=== PATIENT | female | born 1940 | race Caucasian/White ===

== ENCOUNTER 2016-08-29 20:32 | Emergency (ER) | payer MEDICARE ==
--- NOTE | 2016-08-29 20:40 | ER Document Report ---
ED Medical Screen (RME) - General Chief Complaint: Breathing Difficulty Stated Complaint: DIFFICULTY BREATHING WITH CONGESTION Notes: patient presents to the emergency department with complaints of chest congestion. She reports she feels like something is rambling when she coughs. Daughter also reports patient is extremely tired. Patient denies chest pain. She also denies fever vomiting diarrhea. TRAVEL OUTSIDE OF THE [place] IN LAST 30 DAYS: No - Related Data Allergies/Adverse Reactions: Penicillins Allergy (Severe, Verified 11/26/14 09:04) Anaphylaxis Past Medical History - Past Medical History Cardiac Medical History: Reports: Hx Coronary Artery Disease, Hx Hypercholesterolemia, Hx Hypertension Denies: Hx Atrial Fibrillation, Hx Congestive Heart Failure, Hx Heart Attack Pulmonary Medical History: Denies: Hx Asthma, Hx Bronchitis, Hx COPD, Hx Pneumonia Neurological Medical History: Reports: Hx Cerebrovascular Accident - stroke x 2. 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 Denies: Hx Mastectomy, Hx Open Heart Surgery, Hx Pacemaker - Immunizations Hx Diphtheria, Pertussis, Tetanus Vaccination: Yes
[2016-08-29 21:22] LABS: ABSOLUTE BASOPHILS # (AUTO) 0.1 10^3/uL (0.0-0.2); ABSOLUTE EOSINOPHILS # (AUTO) 0.3 10^3/uL (0.0-0.6); ABSOLUTE LYMPHOCYTES (AUTO) 1.2 10^3/uL (0.5-4.7); ABSOLUTE MONOCYTES (AUTO) 1.2 10^3/uL (0.1-1.4); ABSOLUTE NEUT (AUTO) 9.6 10^3/uL (1.7-8.2); BASOPHILS % (AUTO) 1.1 % (0-2); EOSINOPHILS % (AUTO) 2.2 % (0-6); HEMATOCRIT 39.1 % (36.0-47.0); HEMOGLOBIN 13.1 g/dL (12.0-15.5); HGB HCT DIFFERENCE 0.2; LYMPHOCYTES % (AUTO) 9.6 % (13-45); MEAN CORPUSCULAR HEMOGLOBIN 29.6 pg (27.0-33.4); MEAN CORPUSCULAR HGB CONC 33.4 g/dL (32.0-36.0); MEAN CORPUSCULAR VOLUME 89 fl (80-97); MONOCYTES % (AUTO) 9.9 % (3-13); RED BLOOD COUNT 4.41 10^6/uL (3.72-5.28); RED CELL DISTRIBUTION WIDTH 13.3 % (11.5-14.0); SEGMENTED NEUTROPHILS % (AUTO) 77.2 % (42-78); WHITE BLOOD COUNT 12.5 10^3/uL (4.0-10.5)
[2016-08-29 21:47] LABS: ALANINE AMINOTRANSFERASE 23 U/L (9-52); ALBUMIN 4.8 g/dL (3.5-5.0); ALKALINE PHOSPHATASE 94 U/L (38-126); ANION GAP 17 (5-19); ASPARTATE AMINO TRANSFERASE 22 U/L (14-36); BILIRUBIN,TOTAL 0.5 mg/dL (0.2-1.3); BLOOD UREA NITROGEN 20 mg/dL (7-20); CALCIUM 10.4 mg/dL (8.4-10.2); CARBON DIOXIDE 20 mmol/L (22-30); CHLORIDE 102 mmol/L (98-107); CREATININE RESULT 0.78 mg/dL (0.52-1.25); GLUCOSE 166 mg/dL (75-110); POTASSIUM 5.4 mmol/L (3.6-5.0); SODIUM 139.2 mmol/L (137-145); TOTAL PROTEIN 8.2 g/dL (6.3-8.2)
--- NOTE | 2016-08-29 23:48 | EKG REPORT ---
SEVERITY:- ABNORMAL ECG - SINUS OR ECTOPIC ATRIAL RHYTHM PROBABLE LVH WITH SECONDARY REPOL ABNRM : Confirmed by: Shannan Thornton 29-Aug-2016 23:47:08
[2016-08-30] MEDS ORDERED: AZITHROMYCIN 250 MG TABLET PO ONE (01:13)
[2016-08-30] MEDS ORDERED: ALBUTEROL SULFATE HFA (90 MCG/PUFF) 8 GM MDI (1 MDI/ER DISP) IH PRN (01:13)
--- NOTE | 2016-08-30 01:17 | ER Document Report ---
ED General - General Chief Complaint: Breathing Difficulty Stated Complaint: DIFFICULTY BREATHING WITH CONGESTION Notes: Patient is a 75-year-old female past medical history of dementia and hypertension who presents at the request of her daughter with concerns of increasing cough and fatigue over the last one week. The daughter notes that multiple people in the home have had a upper respiratory infection and some have been diagnosed with a "walking pneumonia" and she is concerned that her mother may have the same. States that the patient is been getting worse from a standpoint of her fatigue and willingness to eat over the last 2 days in particular. Patient has still not seen her primary care doctor since becoming ill approximately week ago. She does not have a history of similar symptoms in the past. The patient herself denies any complaints and when asked what brings her into the emergency room today she states "my daughter I don't want to be here". She denies any shortness of breath or pain. She notes that she only has a "little tickle" in her throat. They have been trying [id number] remedies with minimal improvement of the patient's symptoms. Nothing is noted to worsen the patient's symptoms. No associated vomiting or diarrhea. TRAVEL OUTSIDE OF THE [place] IN LAST 30 DAYS: No - Related Data Allergies/Adverse Reactions: Penicillins Allergy (Severe, Verified 11/26/14 09:04) Anaphylaxis Past Medical History - General Information source: Patient - Social History Smoking Status: Never Smoker Chew tobacco use (# tins/day): No Frequency of alcohol use: None Drug Abuse: None Lives with: Spouse/Significant other Family History: Reviewed & Not Pertinent Patient has suicidal ideation: No Patient has homicidal ideation: No - Past Medical History Cardiac Medical History: Reports: Hx Coronary Artery Disease, Hx Hypercholesterolemia, Hx Hypertension Denies: Hx Atrial Fibrillation, Hx Congestive Heart Failure, Hx Heart Attack Pulmonary Medical History: Denies: Hx Asthma, Hx Bronchitis, Hx COPD, Hx Pneumonia Neurological Medical History: Reports: Hx Cerebrovascular Accident - stroke x 2. 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 Denies: Hx Mastectomy, Hx Open Heart Surgery, Hx Pacemaker - Immunizations Hx Diphtheria, Pertussis, Tetanus Vaccination: Yes Review of Systems - Review of Systems Notes: Constitutional: Negative for fever. HENT: Negative for sore throat. Eyes: Negative for visual changes. Cardiovascular: Negative for chest pain. Respiratory: Negative for shortness of breath. Gastrointestinal: Negative for abdominal pain, vomiting or diarrhea. Genitourinary: Negative for dysuria. Musculoskeletal: Negative for back pain. Skin: Negative for rash. Neurological: Negative for headaches, weakness or numbness. 10 point ROS negative except as marked above and in HPI. Physical Exam - Vital signs Vitals: Pulse Resp BP Pulse Ox 81 16 146/68 H 95 08/29/16 20:38 08/29/16 20:38 08/29/16 20:38 08/29/16 20:38 Interpretation: Normal Notes: PHYSICAL EXAMINATION: GENERAL: Well-appearing, well-nourished and in no acute distress. HEAD: Atraumatic, normocephalic. EYES: Pupils equal round and reactive to light, extraocular movements intact, sclera anicteric, conjunctiva are normal. ENT: nares patent, oropharynx clear without exudates. Moist mucous membranes. NECK: Normal range of motion, supple without lymphadenopathy LUNGS: Breath sounds clear to auscultation bilaterally and equal. No wheezes rales or rhonchi. HEART: Regular rate and rhythm without murmurs ABDOMEN: Soft, nontender, normoactive bowel sounds. No guarding, no rebound. No masses appreciated. EXTREMITIES: Normal range of motion, no pitting or edema. No cyanosis. NEUROLOGICAL: No focal neurological deficits. Moves all extremities spontaneously and on command. PSYCH: Normal mood, normal affect. SKIN: Warm, Dry, normal turgor, no rashes or lesions noted. Course - Re-evaluation Re-evalutation: 08/30/16 01:14 Presentation is most consistent with a viral upper respiratory infection. Patient is overall well appearance, vitals within normal limits, well-hydrated. Patient denies any headache, neck pain, and has no evidence of meningismus on examination. Lungs are clear bilaterally. She does have a slight rattling to her upper airway. No evidence of respiratory distress. Based on clinical exam and history, I do not suspect an acute pneumonia, meningitis, strep pharyngitis , or an acute encephalitis. Chest x-ray clear as are laboratories which show only a mild leukocytosis. However, patient's history of getting worse rather than better over the last one week with multiple contacts who've been diagnosed as having a community-acquired pneumonia has prompted me to start patient empirically on azithromycin. She is also been given an albuterol inhaler to assist with persistent coughing. At this time will discharge with return precautions and follow-up recommendations. Verbal discharge instructions given a the bedside and opportunity for questions given. Medication warnings reviewed. Patient is in agreement with this plan and has verbalized understanding of return precautions and the need for primary care follow-up in the next 24-72 hours. - Vital Signs Vital signs: Temp Pulse Resp BP Pulse Ox 98.3 F 78 18 139/63 H 99 08/30/16 01:30 08/30/16 01:30 08/30/16 01:30 08/30/16 01:30 08/30/16 01:30 - Laboratory Result Diagrams: 08/29/16 21:13 08/29/16 21:13 Laboratory results interpreted by me: 08/29/16 08/29/16 21:13 21:13 WBC 12.5 H Lymphocytes % 9.6 L Absolute Neutrophils 9.6 H Potassium 5.4 H Carbon Dioxide 20 L Glucose 166 H Calcium 10.4 H - Diagnostic Test Radiology reviewed: Image reviewed, Reports reviewed Radiology results interpreted by me: 08/30/16 01:15 Chest x-ray: No acute infiltrate - EKG Interpretation by Me Additional EKG results interpreted by me: 08/30/16 03:46 Sinus rhythm. Rate 80. No ST elevations or depressions. QTC is 448 Discharge - Discharge Clinical Impression: Upper respiratory infection Qualifiers: URI type: unspecified URI Qualified Code(s): J06.9 - Acute upper respiratory infection, unspecified Condition: Good Disposition: HOME, SELF-CARE Additional Instructions: Please take the medications as prescribed. Return for worsening shortness of breath, passing out, persistent vomiting, chest pain, or any other symptoms that are worrisome to you. Please follow-up with her primary care doctor in the morning or at your earliest convenience. Prescriptions: Azithromycin 250 mg PO DAILY #4 tablet Referrals: MAGDA KAMARA MD [Primary Care Provider] - Follow up tomorrow
[2016-08-30 01:35] VITALS: BP 139/63
== END 2016-08-30 01:38 | disposition home or self-care (01) ==
LOC: ER 20:32
DX: J06.9 Acute upper respiratory infection, unspecified (principal); R53.83 Other fatigue; R05 Cough; R09.89 Other specified symptoms and signs involving the circulatory and respiratory systems; D72.829 Elevated white blood cell count, unspecified; E11.9 Type 2 diabetes mellitus without complications; I25.10 Atherosclerotic heart disease of native coronary artery without angina pectoris; I10 Essential (primary) hypertension; Z87.892 Personal history of anaphylaxis; Z88.0 Allergy status to penicillin; Z86.73 Personal history of transient ischemic attack (TIA), and cerebral infarction without residual deficits
CPT/HCPCS: 93005; 99285; 36415; 85025; 80053; 71020; 93010; A9270; J3490

== ENCOUNTER 2017-06-07 13:13 | Emergency (ER) | payer MEDICARE ==
--- NOTE | 2017-06-07 13:33 | ER Document Report ---
ED Medical Screen (RME) - General Chief Complaint: Fall Injury Stated Complaint: FALL/HEAD INJURY Time Seen by Provider: 06/07/17 13:32 Notes: Patient fell at home this before arrival. She struck her head on the corner of a desk. She states she is not lightheaded or dizzy she just lost her balance while brushing her hair. Family member states that she has been having more frequent falls lately. She is not on any known blood thinners. TRAVEL OUTSIDE OF THE [place] IN LAST 30 DAYS: No - Related Data Allergies/Adverse Reactions: Penicillins Allergy (Severe, Verified 06/07/17 13:14) Anaphylaxis Past Medical History - Social History Chew tobacco use (# tins/day): No Frequency of alcohol use: None Drug Abuse: None - Past Medical History Cardiac Medical History: Reports: Hx Coronary Artery Disease, Hx Hypercholesterolemia, Hx Hypertension Denies: Hx Atrial Fibrillation, Hx Congestive Heart Failure, Hx Heart Attack Pulmonary Medical History: Denies: Hx Asthma, Hx Bronchitis, Hx COPD, Hx Pneumonia Neurological Medical History: Reports: Hx Cerebrovascular Accident - stroke x 2. 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 Denies: Hx Mastectomy, Hx Open Heart Surgery, Hx Pacemaker - Immunizations Hx Diphtheria, Pertussis, Tetanus Vaccination: Yes Physical Exam - Vital signs Vitals: Temp Pulse Resp BP Pulse Ox 98.6 F 75 16 160/67 H 93 06/07/17 13:21 06/07/17 13:21 06/07/17 13:21 06/07/17 13:21 06/07/17 13:21 Course - Vital Signs Vital signs: Temp Pulse Resp BP Pulse Ox 98.6 F 75 16 160/67 H 93 06/07/17 13:21 06/07/17 13:21 06/07/17 13:21 06/07/17 13:21 06/07/17 13:21
--- NOTE | 2017-06-07 13:52 | RADIOLOGY REPORT (SQ) ---
EXAM DESCRIPTION: CT HEAD WITHOUT COMPLETED DATE/TIME: 06/07/2017 1:41 pm REASON FOR STUDY: fall/injury COMPARISON: 05/22/2014 TECHNIQUE: Axial images acquired through the brain without intravenous contrast. Images reviewed wi th bone, brain and subdural windows. Images stored on PACS. All CT scanners at this facility use dose modulation, iterative reconstruction, and/or weight based d osing when appropriate to reduce radiation dose to as low as reasonably achievable (ALARA). [facility]: Dose Right [facility]: CareDose [facility]: Dose Right [facility]: Teradose 4D [facility]: Smart [place]ink RADIATION DOSE: CT Rad equipment meets quality standard of care and radiation dose reduction techniq ues were employed. CTDIvol: 64.6 mGy. DLP: 1034 mGy-cm.mGy. LIMITATIONS: None. FINDINGS: VENTRICLES: Prominent. CEREBRUM: No masses. No hemorrhage. No midline shift. Areas of low density in the white matter mos t likely due to chronic micro-vascular ischemic change. No evidence for acute infarction. CEREBELLUM: No masses. No hemorrhage. No alteration of density. No evidence for acute infarction. EXTRAAXIAL SPACES: Age-related involutional change. No fluid collections. No masses. ORBITS AND GLOBE: No intra- or extraconal masses. Normal contour of globe without masses. CALVARIUM: No fracture. PARANASAL SINUSES: No fluid or mucosal thickening. SOFT TISSUES: No mass or hematoma. OTHER: No other significant finding. IMPRESSION: CHRONIC CHANGES OF ATROPHY AND MICROVASCULAR ISCHEMIA. NO ACUTE PROCESS. EVIDENCE OF ACUTE STROKE: NO. TECHNICAL DOCUMENTATION: JOB ID: [id number] Quality ID # [id number]: Final reports with documentation of one or more dose reduction techniques (e.g., Au tomated exposure control, adjustment of the mA and/or kV according to patient size, use of iterative reconstruction technique) 2010 [employer] All Rights Reserved
--- NOTE | 2017-06-07 14:38 | ER Document Report ---
ED Fall - General Chief Complaint: Fall Injury Stated Complaint: FALL/HEAD INJURY Time Seen by Provider: 06/07/17 13:32 Mode of Arrival: Wheelchair Information source: Patient Notes: 76-year-old female who lives with her daughter stumbled and lost her balance in her bedroom using the walker and fell. Her daughter found her on the floor unconscious without vomiting. No anticoagulants. Posterior occipital head laceration. PCP Dr. Kamara and tetanus is current. TRAVEL OUTSIDE OF THE [place] IN LAST 30 DAYS: No - Related data Allergies/Adverse Reactions: Penicillins Allergy (Severe, Verified 06/07/17 13:14) Anaphylaxis Past Medical History - General Information source: Patient, Relative - Daughter - Social History Smoking Status: Never Smoker Chew tobacco use (# tins/day): No Frequency of alcohol use: None Drug Abuse: None Lives with: Family Family History: Reviewed & Not Pertinent Patient has suicidal ideation: No Patient has homicidal ideation: No - Past Medical History Cardiac Medical History: Reports: Hx Coronary Artery Disease, Hx Hypercholesterolemia, Hx Hypertension Neurological Medical History: Reports: Hx Cerebrovascular Accident - stroke x 2 Endocrine Medical History: Reports: Hx Diabetes Mellitus Type 2 Renal/ Medical History: Denies: Hx Peritoneal Dialysis Musculoskeltal Medical History: 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 Psychiatric Medical History: Reports: Hx Depression Infectious Medical History: Denies: Hx Hepatitis Past Surgical History: Reports: Hx Cholecystectomy, Hx Hysterectomy - Immunizations Hx Diphtheria, Pertussis, Tetanus Vaccination: Yes Review of Systems - Review of Systems Constitutional: No symptoms reported EENT: No symptoms reported Cardiovascular: No symptoms reported Respiratory: No symptoms reported Gastrointestinal: No symptoms reported Genitourinary: No symptoms reported Female Genitourinary: No symptoms reported Musculoskeletal: See HPI Skin: No symptoms reported Hematologic/Lymphatic: No symptoms reported Neurological/Psychological: No symptoms reported Physical Exam - Vital signs Vitals: Temp Pulse Resp BP Pulse Ox 98.6 F 75 16 160/67 H 93 06/07/17 13:21 06/07/17 13:21 06/07/17 13:21 06/07/17 13:21 06/07/17 13:21 Interpretation: Hypertensive - mild - General General appearance: Appears well, Alert In distress: None - HEENT Head: Normocephalic, Atraumatic Eyes: Normal Pupils: PERRL Neck: Supple - non tender - Respiratory Respiratory status: No respiratory distress Chest status: Nontender Breath sounds: Normal Chest palpation: Normal - Cardiovascular Rhythm: Regular Heart sounds: Normal auscultation Murmur: No - Back Back: Normal, Nontender - Extremities General upper extremity: Normal inspection, Nontender, Normal color, Normal ROM , Normal temperature General lower extremity: Normal inspection, Nontender, Normal color, Normal ROM , Normal temperature, Normal weight bearing. No: Maral's sign Notes: no jayson tenderness - Neurological Neuro grossly intact: Yes Cognition: Normal Orientation: AAOx4 Billy Coma Scale Eye Opening: Spontaneous [place] Coma Scale Verbal: Oriented Billy Coma Scale Motor: Obeys Commands Billy Coma Scale Total: 15 Speech: Normal Motor strength normal: LUE, RUE, LLE, RLE Sensory: Normal - Psychological Associated symptoms: Normal affect, Normal mood - Skin Skin Temperature: Warm Skin Moisture: Dry Skin Color: Normal Skin irregularity: Laceration - posterior occiput, full thickness, 2 cm Course - Re-evaluation Re-evalutation: 06/07/17 14:38 ct head chronic atrophy, nothing acute - Vital Signs Vital signs: Temp Pulse Resp BP Pulse Ox 98.1 F 76 16 160/80 H 96 06/07/17 16:05 06/07/17 16:05 06/07/17 16:05 06/07/17 16:05 06/07/17 16:05 Procedures - Laceration/Wound Repair Head Time completed: 15:55 Wound length (cm): 1.5 Wound's Depth, Shape: Linear Laceration pre-procedure: Other - antibacterial soap scrub Anesthetic type: Other - LET Wound explored: Clean Irrigated w/ Saline (mLs): 50 Wound Repaired With: Rhonda - 2, bacitracin Layer Closure?: No Discharge - Discharge Clinical Impression: scalp laceration staple repair Head injury Qualifiers: Encounter type: initial encounter Qualified Code(s): S09.90XA - Unspecified injury of head, initial encounter Contusion Qualifiers: Encounter type: initial encounter Contusion area: head Contusion of head detail : scalp Qualified Code(s): S00.03XA - Contusion of scalp, initial encounter Condition: Good Disposition: HOME, SELF-CARE Instructions: Acetaminophen, Head Injury Precautions ([facility]), Care of Stapled Wounds ([facility]) Additional Instructions: bacitracin few days staple removal in 1 week to er any concerns watch her for falling, change in behavior , vomiting or any concerns return to the ER Referrals: MAGDA AKMARA MD [Primary Care Provider] - Follow up as needed
[2017-06-07] MEDS ORDERED: LIDOCAINE 4%/TETRACAINE 0.5%/EPI 0.18% 5 ML TOPICAL SOLN TOP ONE (15:03)
[2017-06-07 16:09] VITALS: BP 160/80
== END 2017-06-07 16:14 | disposition home or self-care (01) ==
LOC: ER 13:13
DX: S06.9X9A Unspecified intracranial injury with loss of consciousness of unspecified duration, initial encounter (principal); S01.01XA Laceration without foreign body of scalp, initial encounter; W18.39XA Other fall on same level, initial encounter; Y92.003 Bedroom of unspecified non-institutional (private) residence as the place of occurrence of the external cause; I25.10 Atherosclerotic heart disease of native coronary artery without angina pectoris; I10 Essential (primary) hypertension; E11.9 Type 2 diabetes mellitus without complications; Z87.892 Personal history of anaphylaxis; Z88.0 Allergy status to penicillin
CPT/HCPCS: 70450; 99284; J3490

== ENCOUNTER 2017-06-14 16:55 | Emergency (ER) | payer MEDICARE ==
[2017-06-14] MEDS ORDERED: TRAMADOL HCL 50 MG TABLET PO ONE (18:06)
--- NOTE | 2017-06-14 18:16 | ER Document Report ---
ED General - General Chief Complaint: Staple Removal Stated Complaint: STAPLE REMOVAL Time Seen by Provider: 06/14/17 17:18 Notes: Patient is a 76-year-old female who returns emergency department for staple removal that was placed on 06/07/2017 after frequent falls in her home over that week. Daughter at the bedside states that since her most recent fall she been complaining of back pain that is not responding well to Tylenol. Otherwise she denies any focal neurological deficits and is been ambulating for her baseline. She denies any recent fall since the . She denies any head injury since fall on the with loss of consciousness. Patient is not on blood thinners. Denies any fevers or chills or purulent drainage from the wound. TRAVEL OUTSIDE OF THE [place] IN LAST 30 DAYS: No - Related Data Allergies/Adverse Reactions: Penicillins Allergy (Severe, Verified 06/14/17 16:58) Anaphylaxis Past Medical History - Social History Smoking Status: Never Smoker Chew tobacco use (# tins/day): No Frequency of alcohol use: None Drug Abuse: None Family History: Reviewed & Not Pertinent Patient has suicidal ideation: No Patient has homicidal ideation: No - Past Medical History Cardiac Medical History: Reports: Hx Coronary Artery Disease, Hx Hypercholesterolemia, Hx Hypertension Denies: Hx Atrial Fibrillation, Hx Congestive Heart Failure, Hx Heart Attack Pulmonary Medical History: Denies: Hx Asthma, Hx Bronchitis, Hx COPD, Hx Pneumonia Neurological Medical History: Reports: Hx Cerebrovascular Accident - stroke x 2. 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 Denies: Hx Mastectomy, Hx Open Heart Surgery, Hx Pacemaker - Immunizations Hx Diphtheria, Pertussis, Tetanus Vaccination: Yes Review of Systems - Review of Systems Constitutional: No symptoms reported Cardiovascular: No symptoms reported Respiratory: No symptoms reported Gastrointestinal: No symptoms reported Musculoskeletal: See HPI Skin: See HPI Neurological/Psychological: See HPI -: Yes All other systems reviewed and negative Physical Exam - Vital signs Vitals: Temp Pulse Resp BP Pulse Ox 98.6 F 76 16 149/66 H 94 06/14/17 17:11 06/14/17 17:11 06/14/17 17:11 06/14/17 17:11 06/14/17 17:11 - Notes Notes: PHYSICAL EXAMINATION: GENERAL: Well-appearing, well-nourished and in no acute distress. GCS 15 HEAD: Atraumatic, normocephalic. EYES: Pupils equal round and reactive to light, extraocular movements intact, sclera anicteric, conjunctiva are normal. NECK: Normal range of motion, supple without lymphadenopathy. Trachea midline LUNGS: Breath sounds clear to auscultation bilaterally and equal. No wheezes rales or rhonchi. HEART: Regular rate and rhythm without murmurs. Pulses intact all throughout. Musculoskeletal: Normal range of motion, no pitting or edema. No cyanosis. Hip non tender, stable. Back: Mild tenderness palpation of the lumbar spine. Evidence of mild bruising on the left flank is nontender to palpation. NEUROLOGICAL: Cranial nerves grossly intact. Normal speech, normal gait. Normal sensory, motor exams. PSYCH: Normal mood, normal affect. SKIN: Warm, No active bleeding. 2 [place] on the posterior scalp with out evidence of purulent drainage, cellulitis or wound dehiscence Course - Re-evaluation Re-evalutation: 06/14/17 19:05 compression fracture L1 Patient is a 76-year-old female is hemodynamically stable, no acute distress and afebrile. [place] removed at the bedside and tolerated well. No evidence of wound infection or dehiscence. Guarding patient's back pain, evidence of a 30% lumbar for compression fracture of L1. Discussed results with daughter at the bedside as well as taking her home fall precautions and following up with primary care and insurance for other additional resources. Daughter agrees this plan and is stable for discharge to follow-up with Dr. Kamara. - Vital Signs Vital signs: Temp Pulse Resp BP Pulse Ox 98.6 F 72 16 143/77 H 96 06/14/17 17:11 06/14/17 19:10 06/14/17 19:10 06/14/17 19:10 06/14/17 19:10 - Diagnostic Test Radiology reviewed: Image reviewed, Reports reviewed Discharge - Discharge Clinical Impression: Repeated falls, Compression fracture Condition: Good Disposition: HOME, SELF-CARE Instructions: Compression Fracture of the Spine ([facility]), Staple Removal ([facility]) Prescriptions: Tramadol HCl [Ultram 50 mg Tablet] 50 mg PO Q4HP PRN #25 tab PRN Reason: Referrals: MAGDA KAMARA MD [Primary Care Provider] - 06/20/17
--- NOTE | 2017-06-14 18:50 | RADIOLOGY REPORT (SQ) ---
EXAM DESCRIPTION: L SPINE 2 VIEWS COMPLETED DATE/TIME: 06/14/2017 6:25 pm REASON FOR STUDY: low back pain, h/o multiple falls COMPARISON: 03/10/2016 NUMBER OF VIEWS: Three views. TECHNIQUE: AP, lateral, and inferior coned down lateral views of the lumbar spine. LIMITATIONS: None. FINDINGS: MINERALIZATION: Normal. SEGMENTATION: Normal. No transitional anatomy. ALIGNMENT: Normal. VERTEBRAE: 30% compression of the L1 vertebral body, new since the February 2016 exam, some features suggest subacute-chronic injury. No worrisome bone lesion. DISCS: Multilevel disc space narrowing with osteophytes. POSTERIOR ELEMENTS: Pedicles and facets are intact. No pars defect or posterior arch defects. Facet arthropathy is present. HARDWARE: None in the spine. PARASPINAL SOFT TISSUES: Heavy arterial calcifications without evidence for aneurysm. PELVIS: Intact as visualized. No fractures or worrisome bone lesions. SI joints intact. OTHER: No other significant finding. IMPRESSION: 30% compression of the L1 vertebral body, new since the February 2016 exam, some featur es suggest subacute-chronic injury. TECHNICAL DOCUMENTATION: JOB ID: [id number] [place]-72 2010 [employer]- All Rights Reserved
[2017-06-14 19:08] VITALS: BP 143/77
== END 2017-06-14 19:13 | disposition home or self-care (01) ==
LOC: ER 16:55
DX: M48.56XA Collapsed vertebra, not elsewhere classified, lumbar region, initial encounter for fracture (principal); Z48.02 Encounter for removal of sutures; W19.XXXA Unspecified fall, initial encounter; Z91.81 History of falling
CPT/HCPCS: 99283; 72100; A9270

== ENCOUNTER 2017-07-04 15:43 | Emergency (ER) | payer MEDICARE ==
--- NOTE | 2017-07-04 17:13 | ER Document Report ---
ED Medical Screen (RME) - General Chief Complaint: Vaginal Bleeding Stated Complaint: VAGINAL BLEEDING Time Seen by Provider: 07/04/17 17:10 Mode of Arrival: Wheelchair Information source: Patient Notes: 76 year-old female presented to ED for complaint of vaginal bleeding that started last night. She states she knows is coming from her "lady parts. Daughter states that she wears pull-ups and there was a lot of large clots in her pull-up this morning. Patient states there is no blood in her stool and her stools are very soft and brown. Patient denies any past history of vaginal bleeding or rectal bleeding but she does have some hemorrhoids according to the daughter. She states that the hemorrhoids are not red or bleeding. I have greeted and performed a rapid initial assessment of this patient. A comprehensive ED assessment and evaluation of the patient, analysis of test results and completion of medical decision making process will be conducted by an additional ED providers. TRAVEL OUTSIDE OF THE [place] IN LAST 30 DAYS: No - Related Data Allergies/Adverse Reactions: Penicillins Allergy (Severe, Verified 06/14/17 16:58) Anaphylaxis Past Medical History - Social History Chew tobacco use (# tins/day): No Drug Abuse: None - Past Medical History Cardiac Medical History: Reports: Hx Coronary Artery Disease, Hx Hypercholesterolemia, Hx Hypertension Denies: Hx Atrial Fibrillation, Hx Congestive Heart Failure, Hx Heart Attack Pulmonary Medical History: Denies: Hx Asthma, Hx Bronchitis, Hx COPD, Hx Pneumonia Neurological Medical History: Reports: Hx Cerebrovascular Accident - stroke x 2. 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 Denies: Hx Mastectomy, Hx Open Heart Surgery, Hx Pacemaker - Immunizations Hx Diphtheria, Pertussis, Tetanus Vaccination: Yes Physical Exam - Vital signs Vitals: Pulse Resp BP Pulse Ox 64 18 128/74 H 100 07/04/17 15:51 07/04/17 15:51 07/04/17 15:51 07/04/17 15:51 Course - Vital Signs Vital signs: Temp Pulse Resp BP Pulse Ox 66 14 128/74 H 99 07/04/17 15:53 07/04/17 15:53 07/04/17 15:53 07/04/17 15:53
[2017-07-04 18:21] LABS: ABSOLUTE BASOPHILS # (AUTO) 0.1 10^3/uL (0.0-0.2); ABSOLUTE EOSINOPHILS # (AUTO) 0.1 10^3/uL (0.0-0.6); ABSOLUTE LYMPHOCYTES (AUTO) 2.4 10^3/uL (0.5-4.7); ABSOLUTE NEUT (AUTO) 8.3 10^3/uL (1.7-8.2); BASOPHILS % (AUTO) 0.7 % (0-2); EOSINOPHILS % (AUTO) 0.9 % (0-6); HEMATOCRIT 40.6 % (36.0-47.0); HEMOGLOBIN 13.4 g/dL (12.0-15.5); LYMPHOCYTES % (AUTO) 20.1 % (13-45); MEAN CORPUSCULAR HEMOGLOBIN 29.4 pg (27.0-33.4); MEAN CORPUSCULAR HGB CONC 32.9 g/dL (32.0-36.0); MEAN CORPUSCULAR VOLUME 89 fl (80-97); MONOCYTES % (AUTO) 8.3 % (3-13); PLATELET COUNT 392 10^3/uL (150-450); RED BLOOD COUNT 4.54 10^6/uL (3.72-5.28); RED CELL DISTRIBUTION WIDTH 13.4 % (11.5-14.0); TOTAL CELLS COUNTED % (AUTO) 100 %; WHITE BLOOD COUNT 11.8 10^3/uL (4.0-10.5)
[2017-07-04 18:32] LABS: ALANINE AMINOTRANSFERASE 28 U/L (9-52); ALKALINE PHOSPHATASE 122 U/L (38-126); ANION GAP 18 (5-19); ASPARTATE AMINO TRANSFERASE 20 U/L (14-36); BILIRUBIN,DIRECT 0.3 mg/dL (0.0-0.4); BILIRUBIN,TOTAL 0.4 mg/dL (0.2-1.3); BLOOD UREA NITROGEN 29 mg/dL (7-20); CARBON DIOXIDE 22 mmol/L (22-30); CHLORIDE 103 mmol/L (98-107); GLUCOSE 173 mg/dL (75-110); POTASSIUM 3.9 mmol/L (3.6-5.0); TOTAL PROTEIN 8.1 g/dL (6.3-8.2)
[2017-07-04 18:57] LABS: APPEARANCE,URINE CLOUDY; BILIRUBIN,URINE NEGATIVE (NEGATIVE); COLOR,URINE AMBER; GLUCOSE, URINE NEGATIVE (NEGATIVE); KETONES,URINE NEGATIVE (NEGATIVE); LEUKOCYTE ESTERASE,URINE SMALL (NEGATIVE); NITRITE,URINE NEGATIVE (NEGATIVE); PROTEIN,URINE >=500 mg/dL (NEGATIVE); URINE SPECIFIC GRAVITY 1.024; UROBILINOGEN,URINE NEGATIVE mg/dL (<2.0)
[2017-07-04] MEDS ORDERED: CIPROFLOXACIN HCL 500 MG TABLET PO ONE (23:19)
--- NOTE | 2017-07-04 23:19 | ER Document Report ---
ED General - General Chief Complaint: Vaginal Bleeding Stated Complaint: VAGINAL BLEEDING Time Seen by Provider: 07/04/17 17:10 Mode of Arrival: Wheelchair Notes: Patient is a 76-year-old female presents with complaint of vaginal bleeding. No pain in the abdomen. No difficulty breathing. No dysuria. She notes she is passing some blood clots earlier today. The patient's daughter says that she has had 2 partial hysterectomies. She says this was many years ago. She denies any objective fevers but the daughter says that she felt that she may have had a fever before she came here. No vomiting. No diarrhea. No other complaints at this time. TRAVEL OUTSIDE OF THE [place] IN LAST 30 DAYS: No - Related Data Allergies/Adverse Reactions: Penicillins Allergy (Severe, Verified 06/14/17 16:58) Anaphylaxis Past Medical History - General Information source: Patient - Social History Smoking Status: Never Smoker Chew tobacco use (# tins/day): No Drug Abuse: None Family History: Reviewed & Not Pertinent Patient has suicidal ideation: No Patient has homicidal ideation: No - Past Medical History Cardiac Medical History: Reports: Hx Coronary Artery Disease, Hx Hypercholesterolemia, Hx Hypertension Denies: Hx Atrial Fibrillation, Hx Congestive Heart Failure, Hx Heart Attack Pulmonary Medical History: Denies: Hx Asthma, Hx Bronchitis, Hx COPD, Hx Pneumonia Neurological Medical History: Reports: Hx Cerebrovascular Accident - stroke x 2. 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 Denies: Hx Mastectomy, Hx Open Heart Surgery, Hx Pacemaker - Immunizations Hx Diphtheria, Pertussis, Tetanus Vaccination: Yes Review of Systems - Review of Systems Notes: My Normal Review Basic REVIEW OF SYSTEMS: CONSTITUTIONAL : Denies fever, chills, or sweats. Denies recent illness. RESPIRATORY: Denies cough, cold, or chest congestion. Denies shortness of breath, difficulty breathing, or wheezing. GASTROINTESTINAL: Denies abdominal pain. Denies nausea, vomiting, or diarrhea. Denies constipation. Last BM: GENITOURINARY: No dysuria. FEMALE GENITOURINARY: Vaginal bleeding MUSCULOSKELETAL: Denies neck or back pain or joint pain or swelling. SKIN: Denies rash or skin lesions. NEUROLOGICAL: Denies altered mental status or loss of consciousness. Denies headache. Denies weakness or paralysis or loss of use of either side. Denies problems with gait or speech. Denies sensory or motor loss. ALL OTHER SYSTEMS REVIEWED AND NEGATIVE. Physical Exam - Vital signs Vitals: Pulse Resp BP Pulse Ox 64 18 128/74 H 100 07/04/17 15:51 07/04/17 15:51 07/04/17 15:51 07/04/17 15:51 - Notes Notes: General Appearance: Well nourished, alert, cooperative, no acute distress, no obvious discomfort. well appearing Vitals: reviewed, See vital signs table. Eyes: PERRL, EOMI, Conjuctiva clear Lungs: No wheezing, No rales, No rhonci, No accessory muscle use, good air exchange bilaterally. Heart: Normal rate, Regular rythm, No murmur, no rub Abdomen: Normal BS, soft, No rigidity, No abdominal tenderness, No guarding, no rebound, no abdominal masses, no organomegaly Pelvic exam: normal external genitalia. Sound of blood in the vagianl vault. No cervix seen. No bleeding lesions seen. Extremities: strength 5/5 in all extremities, good pulses in all extremities, no swelling or tenderness in the extremities, no edema. Skin: warm, dry, appropriate color, no rash Neuro: speech clear, oriented x 3, normal affect, responds appropriately to questions. Course - Re-evaluation Re-evalutation: 07/05/17 00:51 Patient has what appears to be some vaginal bleeding. On pelvic exam the patient does not appear to have a cervix. I at least cannot see one. She did have some blood in vaginal vault but was a small amount. I suspect the reason why she has had a history of 2 hysterectomies is that she most likely had her uterus removed first time and then most likely went back and had her cervix removed the second time. Again I do not know this for factor based on her exam I suspect this is what happened. Her urine does have infection. I will place him on antibiotic. After left the room the daughter at told the nurse that the patient did not want to go home. I went back to speak with the daughter the patient is a patient overall looked well and had normal vital signs. Daughter says that the patient still that she felt too weak to go home. The patient then really said I I want to go home. Patient repeatedly said that she does not want to stay and wants to go home. I informed the daughter that I do not really have a admittable reason as her vital signs are normal her labs were normal and clinically she looks fine. I informed her that if the patient is truly that we can we can reconsider; however, the patient repeatedly says that she does not want stay and wants to go home. Informed her daughter to bring her back immediately if the patient has fevers, worsening weakness, appears unwell, or if she has any further concerns. I coursed talk to the daughter and the patient length about the importance of follow-up very closely with the sock mender for further workup of vaginal bleeding she had. Mother and daughter agree with plan and patient will be discharged home. Dictation of this chart was performed using voice recognition software; therefore, there may be some unintended grammatical errors. - Vital Signs Vital signs: Temp Pulse Resp BP Pulse Ox 97.9 F 71 20 137/72 H 97 07/05/17 00:11 07/05/17 00:11 07/05/17 00:11 07/05/17 00:11 07/05/17 00:11 - Laboratory Result Diagrams: 07/04/17 17:30 07/04/17 17:30 Laboratory results interpreted by me: 07/04/17 07/04/17 07/04/17 17:30 17:30 17:30 WBC 11.8 H Absolute Neutrophils 8.3 H BUN 29 H Est GFR ( Amer) 54 L Est GFR (Non-Af Amer) 44 L Glucose 173 H Calcium 11.0 H Urine Protein >=500 H Urine Blood LARGE H Ur Leukocyte Esterase SMALL H Discharge - Discharge Clinical Impression: Vaginal bleeding UTI (urinary tract infection) Qualifiers: Urinary tract infection type: site unspecified Hematuria presence: with hematuria Qualified Code(s): N39.0 - Urinary tract infection, site not specified Condition: Good Disposition: HOME, SELF-CARE Additional Instructions: On your pelvic exam you did have some blood in the vaginal vault. I did not see an obvious source of bleeding. Please call the Staff Reporter ( Dr. Ortiz) to make a close follow up appointment. Please inform them that you are 76 years old and were seen at the ER and have vaginal bleeding. You need to be reevaluated and potentially may need a biopsy as the most common cause of post menstrual vaginal bleeding is cancer. Your urinalysis also showed an infection. please take the antibiotics as prescribed. Please return to the ER immediately if you have worsening bleeding, difficulty breathing, light headedness, fevers, or feel unwell. Prescriptions: Ciprofloxacin HCl [Cipro 500 mg Tablet] 500 mg PO BID #14 tablet Referrals: MAGDA KAMARA MD [Primary Care Provider] - Follow up in 3-5 days ADOLFO ORTIZ MD [ACTIVE STAFF] - 07/06/17 (PLease call the office in the am to make a close follow up appointment)
[2017-07-05 00:12] VITALS: BP 137/72
== END 2017-07-05 00:25 | disposition home or self-care (01) ==
LOC: ER 15:43
DX: N93.9 Abnormal uterine and vaginal bleeding, unspecified (principal); N39.0 Urinary tract infection, site not specified; R31.9 Hematuria, unspecified; I10 Essential (primary) hypertension; I25.10 Atherosclerotic heart disease of native coronary artery without angina pectoris; E11.9 Type 2 diabetes mellitus without complications; Z90.711 Acquired absence of uterus with remaining cervical stump; Z87.892 Personal history of anaphylaxis; Z88.0 Allergy status to penicillin; Z95.0 Presence of cardiac pacemaker
CPT/HCPCS: 99284; 86900; 86901; 36415; 87086; 86850; 85025; 85730; 87088; 80053; 81001; 87186; A9270

== ENCOUNTER 2017-08-01 11:23 | Day surgery (SDC) | payer MEDICARE ==
[~2017-08-01 11:23] MED LIST: PROPOFOL INJ 200 MG/20 ML VIAL IV ONE
[2017-08-01] MEDS ORDERED: ONDANSETRON HCL INJ/PF 4 MG/2 ML SDV ONE (11:40)
[2017-08-01] MEDS ORDERED: DIPHENHYDRAMINE HCL 50 MG/ML VIAL ONE (11:40)
[2017-08-01] MEDS ORDERED: NALOXONE HCL INJ/PF 0.4 MG/1 ML SDV ONE (11:40)
[2017-08-01] MEDS ORDERED: FLUMAZENIL INJ 0.5 MG/5 ML VIAL ONE (11:41)
[2017-08-01] MEDS ORDERED: MIDAZOLAM 2 MG/2 ML INJ ONE (11:41)
[2017-08-01] MEDS ORDERED: FENTANYL CITRATE INJ/PF 100 MCG/2 ML AMPUL ONE (11:41)
[2017-08-01] MEDS ORDERED: EPINEPHRINE INJ 1 MG/10 ML DISP.SYRIN ONE (11:42)
[2017-08-01] MEDS ORDERED: GLUCAGON,HUMAN RECOMB 1 MG INJ ONE (11:42)
--- NOTE | 2017-08-01 13:11 | Operative Report ---
Operative Report DATE OF SURGERY: 08/01/17 Operative Report: The risks benefits and alternatives of the procedure explained to the patient in detail and informed consent is obtained.A GIF Olympus video scope was inserted into the patient's mouth and hypopharynx, the esophagus is identified intubated and insufflated, the scope was then advanced through the esophagus stomach and duodenum, retroflexion maneuver is done, the esophagus stomach and first and second portions of the duodenum examined PREOPERATIVE DIAGNOSIS: Epigastric discomfort. Peptic ulcer disease POSTOPERATIVE DIAGNOSIS: Gastritis status post biopsy rule out Helicobacter pylori. Esophagitis versus Friend's status post biopsy for confirmation. Hiatal hernia OPERATION: EGD with biopsy SURGEON: MELONY QUINONES ANESTHESIA: Moderate Sedation - 2 mg of Versed. Conscious sedation monitoring time 30 minutes. TISSUE REMOVED OR ALTERED: As noted above. COMPLICATIONS: None. ESTIMATED BLOOD LOSS: None. INTRAOPERATIVE FINDINGS: As noted above. PROCEDURE: Patient tolerated the procedure well. No immediate postprocedure complications are noted. Patient discharged in good condition. Discharge date 08/01/2017. Discharge diet: Regular. Discharge activity: Regular. 2-3 week follow-up to discuss findings. Patient is instructed call the office or proceed to the emergency room should there be any further problems or questions. We will wait on pathology.
[2017-08-01 13:16] VITALS: BP 141/79
== END 2017-08-01 13:30 | disposition home or self-care (01) ==
LOC: END 11:23
PROVIDERS: ATTEND Internal Medicine Gastroenterology
PROC: 0DB58ZX Excision of Esophagus, Via Natural or Artificial Opening Endoscopic, Diagnostic (ICD-10-PCS; 2017-08-01)
PROC: 0DB68ZX Excision of Stomach, Via Natural or Artificial Opening Endoscopic, Diagnostic (ICD-10-PCS; principal; 2017-08-01 14:30)
DX: K20.9 Esophagitis, unspecified (principal); K29.60 Other gastritis without bleeding; K44.9 Diaphragmatic hernia without obstruction or gangrene
CPT/HCPCS: 43239; 82962; 88342 ×2; 88305 ×2; J2250; J0171; J1200; J1610; J2310; J2405; J2704; J3010; J3490

== ENCOUNTER 2017-09-13 19:10 | Inpatient (IN) | payer MEDICARE ==
--- NOTE | 2017-09-13 19:50 | ER Document Report ---
ED Medical Screen (RME) - General Chief Complaint: Altered Mental Status Stated Complaint: ALTERED MENTAL STATUS Time Seen by Provider: 09/13/17 19:44 Notes: RME DISCLOSURE I have seen this patient as part of a Rapid Medical Evaluation and, if applicable, placed any initially appropriate orders. The patient will be seen and fully evaluated, including a full history and physical exam, by a provider ( in Main ED or Fast Track) when a room becomes available. 76-year-old female brought here by family who states that she has complained of weakness all over and is slower acting within normal. She has not eaten anything in 3 days and is having trouble walking. She is not having any confusion. They are unsure what is going on with her. They deny any other complaints. The patient denies any pain. TRAVEL OUTSIDE OF THE [place] IN LAST 30 DAYS: No - Related Data Allergies/Adverse Reactions: Penicillins Allergy (Severe, Verified 09/13/17 19:13) Anaphylaxis Past Medical History - Past Medical History Cardiac Medical History: Reports: Hx Coronary Artery Disease, Hx Hypercholesterolemia, Hx Hypertension Denies: Hx Atrial Fibrillation, Hx Congestive Heart Failure, Hx Heart Attack Pulmonary Medical History: Denies: Hx Asthma, Hx Bronchitis, Hx COPD, Hx Pneumonia Neurological Medical History: Reports: Hx Cerebrovascular Accident - stroke x 2. 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 Denies: Hx Mastectomy, Hx Open Heart Surgery, Hx Pacemaker - Immunizations Hx Diphtheria, Pertussis, Tetanus Vaccination: Yes Physical Exam - Vital signs Vitals: Pulse Resp BP Pulse Ox 76 16 119/82 96 09/13/17 19:37 09/13/17 19:37 09/13/17 19:37 09/13/17 19:37 Course - Vital Signs Vital signs: Temp Pulse Resp BP Pulse Ox 76 16 119/82 96 09/13/17 19:37 09/13/17 19:37 09/13/17 19:37 09/13/17 19:37
--- NOTE | 2017-09-13 20:19 | RADIOLOGY REPORT (SQ) ---
EXAM DESCRIPTION: CHEST PA/LAT COMPLETED DATE/TIME: 09/13/2017 8:10 pm REASON FOR STUDY: eval pneumonia COMPARISON: Chest x-ray dated 08/29/2016. KUB dated 03/10/2016. EXAM PARAMETERS: NUMBER OF VIEWS: two views TECHNIQUE: Digital Frontal and Lateral radiographic views of the chest acquired. RADIATION DOSE: NA LIMITATIONS: none FINDINGS: LUNGS AND PLEURA: No opacities, masses or pneumothorax. No pleural effusion. MEDIASTINUM AND HILAR STRUCTURES: No masses or contour abnormalities. HEART AND VASCULAR STRUCTURES: Heart normal size. No evidence for failure. BONES: No acute findings. HARDWARE: None in the chest. OTHER: Dilated gas-filled colon, not fully imaged. Similar findings on prior chest x-ray (August 2016 ) and abdominal x-ray (February 2016). IMPRESSION: NO SIGNIFICANT RADIOGRAPHIC FINDING IN THE CHEST. TECHNICAL DOCUMENTATION: JOB ID: [id number] [employer]- All Rights Reserved Reading location - IP/workstation name: [email or web address]
--- NOTE | 2017-09-13 20:36 | RADIOLOGY REPORT (SQ) ---
EXAM DESCRIPTION: CT HEAD WITHOUT COMPLETED DATE/TIME: 09/13/2017 8:20 pm REASON FOR STUDY: AMS COMPARISON: 06/07/2017. TECHNIQUE: Axial images acquired through the brain without intravenous contrast. Images reviewed wi th bone, brain and subdural windows. Images stored on PACS. All CT scanners at this facility use dose modulation, iterative reconstruction, and/or weight based d osing when appropriate to reduce radiation dose to as low as reasonably achievable (ALARA). [facility]: Dose Right [facility]: CareDose [facility]: Dose Right [facility]: Teradose 4D [facility]: Smart frenting RADIATION DOSE: CT Rad equipment meets quality standard of care and radiation dose reduction techniq ues were employed. CTDIvol: 64.6 mGy. DLP: 1034 mGy-cm.mGy. LIMITATIONS: None. FINDINGS: VENTRICLES: Prominent. CEREBRUM: No masses. No hemorrhage. No midline shift. Areas of low density in the white matter mos t likely due to chronic micro-vascular ischemic change. No evidence for acute infarction. CEREBELLUM: No masses. No hemorrhage. No alteration of density. No evidence for acute infarction. EXTRAAXIAL SPACES: Age-related involutional change. No fluid collections. No masses. ORBITS AND GLOBE: No intra- or extraconal masses. Normal contour of globe without masses. CALVARIUM: No fracture. PARANASAL SINUSES: No fluid or mucosal thickening. SOFT TISSUES: No mass or hematoma. OTHER: No other significant finding. IMPRESSION: CHRONIC CHANGES OF ATROPHY AND MICROVASCULAR ISCHEMIA. NO ACUTE PROCESS. EVIDENCE OF ACUTE STROKE: NO. TECHNICAL DOCUMENTATION: JOB ID: [id number] Quality ID # [id number]: Final reports with documentation of one or more dose reduction techniques (e.g., Au tomated exposure control, adjustment of the mA and/or kV according to patient size, use of iterative reconstruction technique) 2010 [employer]- All Rights Reserved Reading location - IP/workstation name: [email or web address]
[2017-09-13 20:53] LABS: ABSOLUTE BASOPHILS # (AUTO) 0.1 10^3/uL (0.0-0.2); ABSOLUTE LYMPHOCYTES (AUTO) 3.3 10^3/uL (0.5-4.7); ABSOLUTE NEUT (AUTO) 10.4 10^3/uL (1.7-8.2); EOSINOPHILS % (AUTO) 0.2 % (0-6); HEMATOCRIT 46.8 % (36.0-47.0); HEMOGLOBIN 15.7 g/dL (12.0-15.5); LYMPHOCYTES % (AUTO) 22.5 % (13-45); MEAN CORPUSCULAR HEMOGLOBIN 29.1 pg (27.0-33.4); MEAN CORPUSCULAR HGB CONC 33.5 g/dL (32.0-36.0); MEAN CORPUSCULAR VOLUME 87 fl (80-97); MONOCYTES % (AUTO) 6.5 % (3-13); PLATELET COUNT 528 10^3/uL (150-450); RED BLOOD COUNT 5.38 10^6/uL (3.72-5.28); RED CELL DISTRIBUTION WIDTH 14.1 % (11.5-14.0); SEGMENTED NEUTROPHILS % (AUTO) 69.8 % (42-78); TOTAL CELLS COUNTED % (AUTO) 100 %; WHITE BLOOD COUNT 14.8 10^3/uL (4.0-10.5)
[2017-09-13 21:05] LABS: ALANINE AMINOTRANSFERASE 33 U/L (9-52); ALBUMIN 5.1 g/dL (3.5-5.0); ALKALINE PHOSPHATASE 87 U/L (38-126); ASPARTATE AMINO TRANSFERASE 34 U/L (14-36); BILIRUBIN,DIRECT 0.5 mg/dL (0.0-0.4); BILIRUBIN,TOTAL 0.7 mg/dL (0.2-1.3); BLOOD UREA NITROGEN 40 mg/dL (7-20); CALCIUM 11.4 mg/dL (8.4-10.2); GLUCOSE 190 mg/dL (75-110); POTASSIUM 3.6 mmol/L (3.6-5.0); TOTAL PROTEIN 8.7 g/dL (6.3-8.2)
[2017-09-13 21:10] LABS: CARBON DIOXIDE 18 mmol/L (22-30); CHLORIDE 107 mmol/L (98-107); SODIUM 147.5 mmol/L (137-145)
[2017-09-13 21:11] LABS: ANION GAP 23 (5-19)
[2017-09-13] MEDS ORDERED: NORMAL SALINE 1000 ML 500 ML IV ONE (21:34)
--- NOTE | 2017-09-13 21:34 | ER Document Report ---
ED General - General Chief Complaint: Altered Mental Status Stated Complaint: ALTERED MENTAL STATUS Time Seen by Provider: 09/13/17 19:44 Notes: Patient is a 76-year-old female comes emergency department for chief complaint of weakness and confusion, she lives at home with her family, daughters at bedside, daughter states that for the past 3 days she has barely eat or drink anything, she is now to want to even take 2 steps, normally she walks around with a walker without difficulty. No fever, cough, vomiting, patient denies any pain complaints or any other complaints other than feeling weak. Past medical history of CVA 2, has some speech impediment but no other deficits, other past medical history includes type 2 diabetes, hypertension, hypothyroidism, hyperlipidemia, cholecystectomy, hysterectomy. Daughter states she did take her Synthroid. TRAVEL OUTSIDE OF THE [place] IN LAST 30 DAYS: No - Related Data Allergies/Adverse Reactions: Penicillins Allergy (Severe, Verified 09/13/17 19:13) Anaphylaxis Past Medical History - General Information source: Patient, Relative - Social History Smoking Status: Never Smoker Chew tobacco use (# tins/day): No Frequency of alcohol use: None Drug Abuse: None Lives with: Family Family History: Reviewed & Not Pertinent Patient has suicidal ideation: No Patient has homicidal ideation: No - Past Medical History Cardiac Medical History: Reports: Hx Coronary Artery Disease, Hx Hypercholesterolemia, Hx Hypertension Denies: Hx Atrial Fibrillation, Hx Congestive Heart Failure, Hx Heart Attack Pulmonary Medical History: Denies: Hx Asthma, Hx Bronchitis, Hx COPD, Hx Pneumonia Neurological Medical History: Reports: Hx Cerebrovascular Accident - stroke x 2. 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 Denies: Hx Mastectomy, Hx Open Heart Surgery, Hx Pacemaker - Immunizations Hx Diphtheria, Pertussis, Tetanus Vaccination: Yes Review of Systems - Review of Systems Constitutional: See HPI EENT: No symptoms reported Cardiovascular: See HPI Respiratory: No symptoms reported Gastrointestinal: No symptoms reported Genitourinary: No symptoms reported Female Genitourinary: No symptoms reported Musculoskeletal: No symptoms reported Skin: No symptoms reported Hematologic/Lymphatic: No symptoms reported Neurological/Psychological: See HPI Physical Exam - Vital signs Vitals: Pulse Resp BP Pulse Ox 76 16 119/82 96 09/13/17 19:37 09/13/17 19:37 09/13/17 19:37 09/13/17 19:37 - General General appearance: Appears well In distress: None - HEENT Head: Normocephalic, Atraumatic Eyes: Normal Pupils: PERRL - Respiratory Respiratory status: No respiratory distress Breath sounds: Normal. No: Decreased air movement, Wheezing - Cardiovascular Rhythm: Irregularly irregular. No: Tachycardia Heart sounds: Normal auscultation, S1 appreciated, S2 appreciated Gallop: None auscultated Normal capillary refill: Yes - Abdominal Inspection: Normal Tenderness: Nontender. No: Tender, Guarding - Back Back: Normal, Nontender. No: Tender - Extremities General upper extremity: Normal inspection, Nontender, Normal strength, Normal temperature General lower extremity: Normal inspection, Nontender, Normal strength, Normal temperature. No: Edema - Neurological Neuro grossly intact: Yes Orientation: Disoriented to time, Disoriented to events. 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 Abdomen soft, lungs clear, patient speaks quietly and lays quietly on the bed but is not in any distress. Vital signs unremarkable. 09/13/17 21:35 EKG shows atrial fibrillation at a rate of 89, ST depressions in V2 and V3 which are new compared to prior, no other changes noted. Patient is on aspirin. She is denying having any chest pain or shortness of breath, no nausea , she has not had diaphoresis. EKG will be repeated, initial troponin is 0.067 , no comparison available. Will cycle. Troponin is downtrending. Patient has mild leukocytosis, nonspecific, no pneumonia, no overt urinary tract infection, urine cultured. Chemistry consistent with dehydration with elevated BUN and low bicarbonate. Patient was given some initial IV fluids. Patient is very weak, family reports she is unable to walk without a large amount of assistance and she is unstable because of her weakness. Because of her dehydration, weakness, and new onset atrial fibrillation discussed with family and patient and will discuss for hospital admission. Discussed with Dr. Todd. Recommends adding Lovenox anticoagulation and admission. Patient has been given aspirin already. Discussed with Dr. Aviles, patient's provider, patient will be admitted to telemetry full admission. Family and patient state agreement with this plan. - Vital Signs Vital signs: Temp Pulse Resp BP Pulse Ox 97.5 F 125 H 18 124/76 96 09/14/17 01:15 09/14/17 01:22 09/14/17 01:15 09/14/17 01:15 09/14/17 01:15 - Laboratory Result Diagrams: 09/14/17 04:29 09/14/17 04:29 Laboratory results interpreted by me: 09/13/17 09/13/17 09/13/17 20:30 20:30 20:30 WBC 14.8 H RBC 5.38 H Hgb 15.7 H RDW 14.1 H Plt Count 528 H Absolute Neutrophils 10.4 H Sodium 147.5 H Carbon Dioxide 18 L Anion Gap 23 H BUN 40 H Est GFR ( Amer) 54 L Est GFR (Non-Af Amer) 44 L Glucose 190 H Calcium 11.4 H Direct Bilirubin 0.5 H Ammonia < 8.7 L Total Protein 8.7 H Albumin 5.1 H Urine Protein Urine Ketones Urine Urobilinogen Ur Leukocyte Esterase 09/13/17 21:40 WBC RBC Hgb RDW Plt Count Absolute Neutrophils Sodium Carbon Dioxide Anion Gap BUN Est GFR ( Amer) Est GFR (Non-Af Amer) Glucose Calcium Direct Bilirubin Ammonia Total Protein Albumin Urine Protein >=500 H Urine Ketones TRACE H Urine Urobilinogen 2.0 H Ur Leukocyte Esterase TRACE H Discharge - Discharge Clinical Impression: Weakness, Dehydration, New onset atrial fibrillation Condition: Stable Disposition: ADMITTED INPATIENT Admitting Provider: Stefan Unit Admitted: Telemetry
[2017-09-13 22:20] LABS: APPEARANCE,URINE CLOUDY; BILIRUBIN,URINE NEGATIVE (NEGATIVE); GLUCOSE, URINE NEGATIVE (NEGATIVE); KETONES,URINE TRACE mg/dL (NEGATIVE); LEUKOCYTE ESTERASE,URINE TRACE (NEGATIVE); NITRITE,URINE NEGATIVE (NEGATIVE); PROTEIN,URINE >=500 mg/dL (NEGATIVE); URINE SPECIFIC GRAVITY 1.025
[2017-09-13 22:21] LABS: COLOR,URINE DARK YELLOW
[2017-09-13] MEDS ORDERED: ASPIRIN 81 MG TABLET, CHEWABLE PO ONE (23:08)
[2017-09-13] MEDS ORDERED: ENOXAPARIN SODIUM INJ 80 MG/0.8 ML DISP.SYRIN SUBCUT ONE (23:12)
[2017-09-13] MEDS ORDERED: ENOXAPARIN SODIUM INJ 60 MG/0.6 ML DISP.SYRIN SUBCUT ONE (23:45)
[2017-09-14] MEDS: NORMAL SALINE 1000 ML 1,000 ML IV PRN ×3 (01:14→22:38)
[2017-09-14] MEDS ORDERED: DEXTROSE 40% GEL 15 GM TUBE PO PRN (02:24)
[2017-09-14] MEDS ORDERED: DEXTROSE 50%-WATER SYRINGE 25 GM/50 ML DOSE IV PRN (02:24)
[2017-09-14] MEDS ORDERED: DEXTROSE 50%-WATER SYRINGE 12.5 GM/25 ML DOSE IV PRN (02:24)
[2017-09-14] MEDS ORDERED: GLUCAGON,HUMAN RECOMB 1 MG INJ IM PRN (02:24)
[2017-09-14] MEDS ORDERED: DEXTROSE 40% GEL 15 GM TUBE X 2 PO PRN (02:24)
[2017-09-14 05:08] LABS: ABSOLUTE BASOPHILS # (AUTO) 0.2 10^3/uL (0.0-0.2); ABSOLUTE EOSINOPHILS # (AUTO) 0.1 10^3/uL (0.0-0.6); ABSOLUTE LYMPHOCYTES (AUTO) 4.4 10^3/uL (0.5-4.7); ABSOLUTE MONOCYTES (AUTO) 1.6 10^3/uL (0.1-1.4); ABSOLUTE NEUT (AUTO) 9.9 10^3/uL (1.7-8.2); EOSINOPHILS % (AUTO) 0.4 % (0-6); HEMATOCRIT 38.7 % (36.0-47.0); LYMPHOCYTES % (AUTO) 27.2 % (13-45); MEAN CORPUSCULAR HEMOGLOBIN 28.6 pg (27.0-33.4); MEAN CORPUSCULAR HGB CONC 33.4 g/dL (32.0-36.0); MEAN CORPUSCULAR VOLUME 85 fl (80-97); MONOCYTES % (AUTO) 9.8 % (3-13); PLATELET COUNT 374 10^3/uL (150-450); RED BLOOD COUNT 4.53 10^6/uL (3.72-5.28); SEGMENTED NEUTROPHILS % (AUTO) 61.6 % (42-78); TOTAL CELLS COUNTED % (AUTO) 100 %; WHITE BLOOD COUNT 16.1 10^3/uL (4.0-10.5)
[2017-09-14 05:09] LABS: HEMOGLOBIN 12.9 g/dL (12.0-15.5)
[2017-09-14 05:28] LABS: ALANINE AMINOTRANSFERASE 29 U/L (9-52); ALBUMIN 4.1 g/dL (3.5-5.0); ALKALINE PHOSPHATASE 67 U/L (38-126); ANION GAP 16 (5-19); ASPARTATE AMINO TRANSFERASE 33 U/L (14-36); BILIRUBIN,DIRECT 0.5 mg/dL (0.0-0.4); BILIRUBIN,TOTAL 0.5 mg/dL (0.2-1.3); BLOOD UREA NITROGEN 40 mg/dL (7-20); CARBON DIOXIDE 17 mmol/L (22-30); CHLORIDE 108 mmol/L (98-107); GLUCOSE 115 mg/dL (75-110); POTASSIUM 3.2 mmol/L (3.6-5.0); SODIUM 140.6 mmol/L (137-145); TOTAL PROTEIN 6.8 g/dL (6.3-8.2)
--- NOTE | 2017-09-14 07:55 | EKG REPORT ---
SEVERITY:- ABNORMAL ECG - SINUS RHYTHM WITH PACS LEFT ANTERIOR FASCICULAR BLOCK LVH WITH SECONDARY REPOLARIZATION ABNORMALITY PROLONGED QT INTERVAL : Confirmed by: Michael Grier MD 14-Sep-2017 07:54:10
--- NOTE | 2017-09-14 07:55 | EKG REPORT ---
SEVERITY:- ABNORMAL ECG - ATRIAL FIBRILLATION LEFT AXIS DEVIATION LVH WITH SECONDARY REPOLARIZATION ABNORMALITY ST DEPRESSION, CONSIDER ISCHEMIA, ANT-LAT LDS BORDERLINE PROLONGED QT INTERVAL : Confirmed by: Michael Grier MD 14-Sep-2017 07:55:17
[2017-09-14] MEDS ORDERED: (PENDING PHARMACY ID) (Metformin Hcl [Metformin Hcl Er] 1,000 MG) PO SCH (09:00)
[2017-09-14] MEDS ORDERED: LEVOTHYROXINE SODIUM 0.112 MG TABLET PO ONE (10:00)
[2017-09-14] MEDS ORDERED: CHOLECALCIFEROL (D3) 1,000 UNIT TABLET PO SCH (10:00)
[2017-09-14] MEDS ORDERED: (PENDING PHARMACY ID) (Cholecalciferol (Vitamin D3) [Vitamin D3] 2,000 UNIT) PO SCH (10:00)
[2017-09-14] MEDS ORDERED: ENOXAPARIN SODIUM INJ 60 MG/0.6 ML DISP.SYRIN SUBCUT SCH (10:00)
[2017-09-14] MEDS ORDERED: (PENDING PHARMACY ID) (Losartan Potassium [Losartan Potassium] 100 MG) PO SCH (10:00)
[2017-09-14] MEDS ORDERED: (PENDING PHARMACY ID) (Atenolol [Tenormin 100 Mg Tablet] 100 MG) PO SCH (10:00)
[2017-09-14] MEDS: APIXABAN 2.5 MG TABLET PO SCH ×2 (10:31→22:27)
[2017-09-14] MEDS: AMLODIPINE BESYLATE 5 MG TABLET PO SCH (10:31)
[2017-09-14] MEDS: LOSARTAN POTASSIUM 50 MG TABLET PO SCH (10:32)
[2017-09-14] MEDS: ATENOLOL 50 MG TABLET PO SCH (10:32)
[2017-09-14] MEDS: CHOLECALCIFEROL (D3) 1,000 UNIT TABLET PO SCH (10:32)
[2017-09-14] MEDS: MULTIVITAMIN TABLET PO SCH (10:33)
[2017-09-14] MEDS: SERTRALINE HCL 50 MG TABLET PO SCH (10:33)
[2017-09-14] MEDS: METFORMIN HCL 500 MG TABLET PO SCH ×2 (10:34→15:59)
[2017-09-14] MEDS: INSULIN LISPRO 100 UNIT/ML 3 ML VIAL SUBCUT PRN (17:44)
--- NOTE | 2017-09-14 18:09 | PDOC H&P ---
History of Present Illness Admission Date/PCP: 09/13/17 23:17 Patient complains of: Worsening weakness and confusion History of Present Illness: TRA DESAI is a 76 year old female known to my practice who was brought to the ED by daughter due to worsening generalized weakness over preceding 3 days. Daughter reported associated poor appetite and oral intake over the last several days. Daughter denied any associated fever, chills, nausea, vomiting, diarrhea or constipation. No reported difficulty with breathing or chest pain. daughter reported increasing need for ADL and IADL. In the ED her initial evaluation was significant for dehydration, possible sepsis with focus of UTI and findings suggestive of new onset atrial fibrillation. Her morbidities include Hypertension, Hypothyroidism, Diabetes Mellitus type 2, Hyperlipidemia, prior history of CVA and Osteoarthritis. Daughter reported compliance with home prescribed medications prior to her current state of health. Past Medical History Cardiac Medical History: Reports: Coronary Artery Disease, Hyperlipidema, Hypertension Denies: Atrial Fibrillation, Congestive Heart Failure, Myocardial Infarction Pulmonary Medical History: Denies: Asthma, Bronchitis, Chronic Obstructive Pulmonary Disease (COPD), Pneumonia Neurological Medical History: Denies: Seizures Endocrine Medical History: Reports: Diabetes Mellitus Type 2 GI Medical History: Denies: Hepatitis, Hiatal Hernia Musculoskeltal Medical History: Reports: Arthritis - geralized Psychiatric Medical History: Reports: Depression Hematology: Denies: Anemia, Sickle Cell Disease Past Surgical History Past Surgical History: Reports: Cholecystectomy, Hysterectomy Denies: Amputation, Mastectomy, Pacemaker Social History Lives with: Family Smoking Status: Never Smoker Frequency of Alcohol Use: None Hx Recreational Drug Use: No Drugs: None Hx Prescription Drug Abuse: No - Advance Directive Resuscitation Status: Do Not Intubate Family History Family History: Reviewed & Not Pertinent Parental Family History Reviewed: Yes Children Family History Reviewed: Yes Sibling(s) Family History Reviewed.: Yes Medication/Allergy Home Medications: Amlodipine Besylate [Norvasc 5 mg Tablet] 5 mg PO DAILY 09/14/17 Aspirin [Adult Low Dose Aspirin EC] 81 mg PO DAILY 09/14/17 Atenolol [Tenormin 100 mg Tablet] 100 mg PO DAILY 09/14/17 Atorvastatin Calcium [Lipitor 20 mg Tablet] 20 mg PO QHS 09/14/17 Cholecalciferol (Vitamin D3) [Vitamin D3 1000 Unit Tablet] 1,000 unit PO DAILY 09/14/17 Diphenhydramine HCl [Benadryl 25 mg Capsule] 2 tab PO HSP PRN 09/14/17 Levothyroxine Sodium [Synthroid 0.112 mg Tablet] 112 mcg PO Q6AM 09/14/17 Losartan Potassium 100 mg PO DAILY 09/14/17 Magnesium Oxide [Mag-Ox 400 mg Tablet] 400 mg PO DAILY 09/14/17 Metformin HCl [Metformin HCl ER] 1,000 mg PO BIDBS 09/14/17 Multivitamin [Daily Multiple Vitamin] 1 each PO DAILY 09/14/17 Potassium Chloride 10 meq PO DAILY 09/14/17 Sertraline HCl 100 mg PO DAILY 09/14/17 Allergies/Adverse Reactions: Penicillins Allergy (Severe, Verified 09/13/17 19:13) Anaphylaxis Review of Systems All systems: reviewed and no additional remarkable complaints except as stated - mostly contributed by daughter due to her weakness and confusional state. Physical Exam Vital Signs: Temp Pulse Resp BP Pulse Ox 97.5 F 88 20 130/75 H 96 09/14/17 16:31 09/14/17 16:31 09/14/17 16:31 09/14/17 16:31 09/14/17 16:31 Intake & Output 09/13/17 09/14/17 09/15/17 06:59 06:59 06:59 Intake Total 850 150 Balance 850 150 General appearance: PRESENT: cooperative Head exam: PRESENT: atraumatic, normocephalic Eye exam: PRESENT: conjunctiva pink, EOMI, PERRLA. ABSENT: scleral icterus Mouth exam: PRESENT: moist - fairly at the time of my evaluetion after IV fluid hydration and some oral toileting intervention. Neck exam: ABSENT: carotid bruit, JVD, lymphadenopathy, thyromegaly Respiratory exam: PRESENT: clear to auscultation skyler, decreased breath sounds - at lung bases Cardiovascular exam: PRESENT: irregular rhythm, +S1, +S2. ABSENT: diastolic murmur, systolic murmur Pulses: PRESENT: +1 pedal pulses bilateral Vascular exam: PRESENT: normal capillary refill. ABSENT: pallor GI/Abdominal exam: PRESENT: normal bowel sounds, soft. ABSENT: distended, guarding, mass, organolmegaly, rebound, tenderness Rectal exam: PRESENT: deferred Extremities exam: ABSENT: pedal edema Musculoskeletal exam: PRESENT: deformity - related to multiple joints involvement with arthritis Neurological exam: PRESENT: altered - due to generalized weakness, awake Psychiatric exam: PRESENT: appropriate affect, normal mood. ABSENT: homicidal ideation, suicidal ideation Skin exam: PRESENT: dry, warm Results Laboratory Results: 09/14/17 04:29 09/14/17 04:29 09/14/17 09/14/17 04:29 04:29 WBC 16.1 H RBC 4.53 Hgb 12.9 D Hct 38.7 MCV 85 MCH 28.6 MCHC 33.4 RDW 14.0 Plt Count 374 Seg Neutrophils % 61.6 Lymphocytes % 27.2 Monocytes % 9.8 Eosinophils % 0.4 Basophils % 1.0 Absolute Neutrophils 9.9 H Absolute Lymphocytes 4.4 Absolute Monocytes 1.6 H Absolute Eosinophils 0.1 Absolute Basophils 0.2 Sodium 140.6 Potassium 3.2 L Chloride 108 H Carbon Dioxide 17 L Anion Gap 16 BUN 40 H Creatinine 1.01 Est GFR ( Amer) > 60 Est GFR (Non-Af Amer) 53 L Glucose 115 H Calcium 10.0 Total Bilirubin 0.5 AST 33 ALT 29 Alkaline Phosphatase 67 Total Protein 6.8 Albumin 4.1 Impressions: Chest X-Ray 09/13/17 19:48 IMPRESSION: NO SIGNIFICANT RADIOGRAPHIC FINDING IN THE CHEST. Head CT 09/13/17 19:48 IMPRESSION: CHRONIC CHANGES OF ATROPHY AND MICROVASCULAR ISCHEMIA. NO ACUTE PROCESS. EVIDENCE OF ACUTE STROKE: NO. Assessment & Plan - Diagnosis (1) New onset atrial fibrillation Is this a current diagnosis for this admission?: Yes Plan: See admitting attending physician orders. (2) Dehydration Is this a current diagnosis for this admission?: Yes Plan: See admitting attending physician orders. (3) Probable sepsis Is this a current diagnosis for this admission?: Yes Plan: See admitting attending physician orders. (4) Physical debility Is this a current diagnosis for this admission?: Yes Plan: See admitting attending physician orders. (5) HTN (hypertension) Qualifiers: Hypertension type: essential hypertension Qualified Code(s): I10 - Essential (primary) hypertension Is this a current diagnosis for this admission?: Yes Plan: See admitting attending physician orders. (6) Diabetes mellitus type 2 in nonobese Is this a current diagnosis for this admission?: Yes Plan: See admitting attending physician orders. (7) Hyperlipidemia associated with type 2 diabetes mellitus Is this a current diagnosis for this admission?: Yes Plan: See admitting attending physician orders. (8) Hypothyroidism Qualifiers: Hypothyroidism type: acquired Qualified Code(s): E03.9 - Hypothyroidism, unspecified Is this a current diagnosis for this admission?: Yes Plan: See admitting attending physician orders. (9) History of CVA (cerebrovascular accident) Is this a current diagnosis for this admission?: Yes Plan: See admitting attending physician orders. (10) Osteoarthritis involving multiple joints on both sides of body Is this a current diagnosis for this admission?: Yes Plan: See admitting attending physician orders. - Time Time Spent: 50 to 70 Minutes Medications reviewed and adjusted accordingly: Yes Anticipated discharge: SNF Within: Other - Inpatient Certification Based on my medical assessment, after consideration of the patient's comorbidities, presenting symptoms, or acuity I expect that the services needed warrant INPATIENT care.: Yes I certify that my determination is in accordance with my understanding of Medicare's requirements for reasonable and necessary INPATIENT services [42 CFR 412.3e].: Yes Medical Necessity: Need Close Monitoring Due to Risk of Patient Decompensation, Need For IV Fluids, Need For Continuous Telemetry Monitoring, Need for IV Antibiotics, Risk of Complication if Not Cared For in Hospital Post Hospital Care: D/C or Transfer Summary - Plan Summary Plan Summary: See admitting attending physician orders.
[2017-09-14] MEDS: POTASSIUM CHLORIDE 20 MEQ/15 ML UDCUP PO SCH ×2 (18:47→22:26)
[2017-09-14] MEDS ORDERED: METFORMIN HCL 500 MG TABLET PO ONE (19:00)
[2017-09-14] MEDS: MAGNESIUM SULFATE/D5W 1 GM/100 ML RTUPB IV SCH ×2 (20:32→22:25)
[2017-09-14] MEDS: ATORVASTATIN CALCIUM 20 MG TABLET PO SCH (22:28)
[2017-09-15 05:14] LABS: ABSOLUTE BASOPHILS # (AUTO) 0.1 10^3/uL (0.0-0.2); ABSOLUTE EOSINOPHILS # (AUTO) 0.2 10^3/uL (0.0-0.6); ABSOLUTE LYMPHOCYTES (AUTO) 3.1 10^3/uL (0.5-4.7); ABSOLUTE MONOCYTES (AUTO) 1.1 10^3/uL (0.1-1.4); ABSOLUTE NEUT (AUTO) 8.5 10^3/uL (1.7-8.2); BASOPHILS % (AUTO) 0.5 % (0-2); EOSINOPHILS % (AUTO) 1.4 % (0-6); HEMATOCRIT 33.9 % (36.0-47.0); HEMOGLOBIN 11.5 g/dL (12.0-15.5); LYMPHOCYTES % (AUTO) 23.9 % (13-45); MEAN CORPUSCULAR HEMOGLOBIN 28.9 pg (27.0-33.4); MEAN CORPUSCULAR HGB CONC 33.8 g/dL (32.0-36.0); MEAN CORPUSCULAR VOLUME 86 fl (80-97); MONOCYTES % (AUTO) 8.8 % (3-13); PLATELET COUNT 301 10^3/uL (150-450); RED BLOOD COUNT 3.96 10^6/uL (3.72-5.28); SEGMENTED NEUTROPHILS % (AUTO) 65.4 % (42-78); TOTAL CELLS COUNTED % (AUTO) 100 %
[2017-09-15] MEDS: LEVOTHYROXINE SODIUM 0.112 MG TABLET PO SCH (05:43)
[2017-09-15 05:47] LABS: ALANINE AMINOTRANSFERASE 40 U/L (9-52); ALBUMIN 3.4 g/dL (3.5-5.0); ALKALINE PHOSPHATASE 63 U/L (38-126); ANION GAP 13 (5-19); ASPARTATE AMINO TRANSFERASE 51 U/L (14-36); BILIRUBIN,DIRECT 0.3 mg/dL (0.0-0.4); BILIRUBIN,TOTAL 0.4 mg/dL (0.2-1.3); BLOOD UREA NITROGEN 30 mg/dL (7-20); CALCIUM 8.9 mg/dL (8.4-10.2); CARBON DIOXIDE 15 mmol/L (22-30); CHLORIDE 115 mmol/L (98-107); GLUCOSE 103 mg/dL (75-110); POTASSIUM 3.7 mmol/L (3.6-5.0); SODIUM 142.6 mmol/L (137-145); TOTAL PROTEIN 5.9 g/dL (6.3-8.2)
[2017-09-15] MEDS: METFORMIN HCL 500 MG TABLET PO SCH ×2 (08:16→17:18)
[2017-09-15] MEDS: ATENOLOL 50 MG TABLET PO SCH (11:07)
[2017-09-15] MEDS: SERTRALINE HCL 50 MG TABLET PO SCH (11:07)
[2017-09-15] MEDS: AMLODIPINE BESYLATE 5 MG TABLET PO SCH (11:07)
[2017-09-15] MEDS: LOSARTAN POTASSIUM 50 MG TABLET PO SCH (11:07)
[2017-09-15] MEDS: LEVOFLOXACIN 500 MG/D5W RTU 500 MG/100 ML RTUPB IV SCH (11:08)
[2017-09-15] MEDS: APIXABAN 2.5 MG TABLET PO SCH ×2 (11:08→21:37)
[2017-09-15] MEDS: CHOLECALCIFEROL (D3) 1,000 UNIT TABLET PO SCH (11:08)
[2017-09-15] MEDS: MULTIVITAMIN TABLET PO SCH (11:08)
[2017-09-15] MEDS: NORMAL SALINE 1000 ML 1,000 ML IV PRN (13:39)
[2017-09-15] MEDS: INSULIN LISPRO 100 UNIT/ML 3 ML VIAL SUBCUT PRN (13:40)
--- NOTE | 2017-09-15 18:26 | PDOC PROGRESS REPORT ---
Subjective Progress Note for:: 09/15/17 Subjective:: Patient participated in physical therapy session today. No chest pain or difficulty with breathing. No nausea, vomiting or abdominal pain but there is increase abdominal distention. No fever or chills. Tolerating oral feeding. Reason For Visit: NEW ONSET AFIB Physical Exam Vital Signs: Temp Pulse Resp BP Pulse Ox 98.6 F 40 L 16 149/75 H 97 09/15/17 15:43 09/15/17 15:43 09/15/17 15:43 09/15/17 15:43 09/15/17 15:43 Intake & Output 09/14/17 09/15/17 09/16/17 06:59 06:59 06:59 Intake Total 850 3326 1415 Balance 850 3326 1415 General appearance: PRESENT: no acute distress, well-developed, well-nourished Head exam: PRESENT: atraumatic, normocephalic Eye exam: PRESENT: conjunctiva pink, EOMI, PERRLA. ABSENT: scleral icterus Mouth exam: PRESENT: moist Respiratory exam: PRESENT: clear to auscultation skyler, decreased breath sounds - at lung bases Cardiovascular exam: PRESENT: RRR. ABSENT: diastolic murmur, rubs, systolic murmur Vascular exam: PRESENT: normal capillary refill. ABSENT: pallor GI/Abdominal exam: PRESENT: distended, normal bowel sounds. ABSENT: organolmegaly, tenderness Extremities exam: ABSENT: pedal edema Musculoskeletal exam: PRESENT: deformity - related to multiple joints involvement with arthritis Neurological exam: PRESENT: alert, awake, oriented to person, oriented to place , oriented to time, oriented to situation, CN II-XII grossly intact. ABSENT: motor sensory deficit Psychiatric exam: PRESENT: appropriate affect, normal mood. ABSENT: homicidal ideation, suicidal ideation Skin exam: PRESENT: dry, intact, warm. ABSENT: cyanosis, rash Results Laboratory Results: 09/15/17 04:26 09/15/17 04:26 09/14/17 09/15/17 09/15/17 04:29 04:26 04:26 WBC 13.0 H RBC 3.96 Hgb 11.5 L Hct 33.9 L MCV 86 MCH 28.9 MCHC 33.8 RDW 14.0 Plt Count 301 Seg Neutrophils % 65.4 Lymphocytes % 23.9 Monocytes % 8.8 Eosinophils % 1.4 Basophils % 0.5 Absolute Neutrophils 8.5 H Absolute Lymphocytes 3.1 Absolute Monocytes 1.1 Absolute Eosinophils 0.2 Absolute Basophils 0.1 Sodium 142.6 Potassium 3.7 Chloride 115 H Carbon Dioxide 15 L Anion Gap 13 BUN 30 H Creatinine 0.76 Est GFR ( Amer) > 60 Est GFR (Non-Af Amer) > 60 Glucose 103 Calcium 8.9 Magnesium 1.2 L* 1.8 Total Bilirubin 0.4 AST 51 H ALT 40 Alkaline Phosphatase 63 Total Protein 5.9 L Albumin 3.4 L Impressions: Chest X-Ray 09/13/17 19:48 IMPRESSION: NO SIGNIFICANT RADIOGRAPHIC FINDING IN THE CHEST. Head CT 09/13/17 19:48 IMPRESSION: CHRONIC CHANGES OF ATROPHY AND MICROVASCULAR ISCHEMIA. NO ACUTE PROCESS. EVIDENCE OF ACUTE STROKE: NO. Assessment & Plan - Diagnosis (1) New onset atrial fibrillation Is this a current diagnosis for this admission?: Yes (2) Dehydration Is this a current diagnosis for this admission?: Yes (3) Probable sepsis Is this a current diagnosis for this admission?: Yes (4) Physical debility Is this a current diagnosis for this admission?: Yes (5) HTN (hypertension) Qualifiers: Hypertension type: essential hypertension Qualified Code(s): I10 - Essential (primary) hypertension Is this a current diagnosis for this admission?: Yes (6) Diabetes mellitus type 2 in nonobese Is this a current diagnosis for this admission?: Yes (7) Hyperlipidemia associated with type 2 diabetes mellitus Is this a current diagnosis for this admission?: Yes (8) Hypothyroidism Qualifiers: Hypothyroidism type: acquired Qualified Code(s): E03.9 - Hypothyroidism, unspecified Is this a current diagnosis for this admission?: Yes (9) History of CVA (cerebrovascular accident) Is this a current diagnosis for this admission?: Yes (10) Osteoarthritis involving multiple joints on both sides of body Is this a current diagnosis for this admission?: Yes (11) Enterococcus UTI Is this a current diagnosis for this admission?: Yes Plan: See attending physician orders. - Time Time Spent with patient: 25-34 minutes Medications reviewed and adjusted accordingly: Yes Anticipated discharge: SNF Within: Other - Inpatient Certification Based on my medical assessment, after consideration of the patient's comorbidities, presenting symptoms, or acuity I expect that the services needed warrant INPATIENT care.: Yes I certify that my determination is in accordance with my understanding of Medicare's requirements for reasonable and necessary INPATIENT services [42 CFR 412.3e].: Yes Medical Necessity: Need Close Monitoring Due to Risk of Patient Decompensation, Need For IV Fluids, Need For Continuous Telemetry Monitoring, Need for IV Antibiotics, Risk of Complication if Not Cared For in Hospital Post Hospital Care: D/C or Transfer Summary - Plan Summary Plan Summary: See attending physician orders.
--- NOTE | 2017-09-15 18:57 | Physician Advisory Note ---
Physician Advisor ProgressNote .: [facility] I have [facility] medical record for this patient. Physician Advisor Statement: Please consider documenting, if you agree: 1. "sepsis, considered but ruled out" - vs - "sepsis, present on admission, due to ____[UTI?], & evidenced by (if sepsis (+), please document the specific criteria by which the dx was made, & continue to document this through to the DCSummary, & list any organ dysfunction caused by sepsis, ...) 2. "Acute hypernatremia due to , now resolved" [intravascular volume depletion?] 3. "Acute metabolic acidosis due to " Discussion: Sepsis-2 criteria = 2 or more of following, must include 1 of 1st 2: T>100.4, WBC>12, HR>90, RR>20. Sepsis-3 criteria = acute increase of 2+ SOFA points: total GCS<15, MAP <70, P/ F ratio <400, plts <150, Cr 1.2+, total bili 1.2+. Lactate elevation can support dx of sepsis, but can also be caused by other causes of tissue hypoxia/respiratory failure, mesenteric ischemia, seizure, and certain meds, among other things. *Sepsis is important to document when present, but has become over-called at times & is a target for denials. - When making this dx, we need to give the specific supporting evidence. - When pt meets some sepsis criteria but clinically not felt to be septic, we should say that sepsis was considered but ruled out. Thanks! CK
[2017-09-15] MEDS: ATORVASTATIN CALCIUM 20 MG TABLET PO SCH (21:37)
--- NOTE | 2017-09-15 23:57 | RADIOLOGY REPORT (SQ) ---
EXAM DESCRIPTION: ACUTE ABDOMEN SERIES CLINICAL HISTORY: 76 years, Female, Abdominal distention with leukocytosis COMPARISON: 03/10/2016. CR chest, 09/13/2017. TECHNIQUE: Four images. LIMITATIONS: None. FINDINGS: Moderate lung volume, small left basilar atelectasis-scar, atherosclerosis, normal cardiac silhouette. Chronic/recurrent large bowel dilation measures up to 10.0 cm diameter with similar appearance on prior exam, 03/10/2016. No evidence of free air. IMPRESSION: Chronic/recurrent colonic ileus pattern. Differential diagnosis includes obstruction.
[2017-09-16] MEDS: NORMAL SALINE 1000 ML 1,000 ML IV PRN ×3 (04:58→20:45)
[2017-09-16] MEDS: LEVOTHYROXINE SODIUM 0.112 MG TABLET PO SCH (05:00)
[2017-09-16] MEDS: AMLODIPINE BESYLATE 5 MG TABLET PO SCH (09:45)
[2017-09-16] MEDS: MULTIVITAMIN TABLET PO SCH (09:46)
[2017-09-16] MEDS: SERTRALINE HCL 50 MG TABLET PO SCH (09:46)
[2017-09-16] MEDS: LOSARTAN POTASSIUM 50 MG TABLET PO SCH (09:46)
[2017-09-16] MEDS: CHOLECALCIFEROL (D3) 1,000 UNIT TABLET PO SCH (09:46)
[2017-09-16] MEDS: METFORMIN HCL 500 MG TABLET PO SCH ×2 (09:47→18:52)
[2017-09-16] MEDS: APIXABAN 2.5 MG TABLET PO SCH ×2 (09:47→21:38)
[2017-09-16] MEDS: ATENOLOL 50 MG TABLET PO SCH (09:48)
[2017-09-16] MEDS: LEVOFLOXACIN 500 MG/D5W RTU 500 MG/100 ML RTUPB IV SCH (09:50)
[2017-09-16] MEDS ORDERED: ONDANSETRON HCL INJ/PF 4 MG/2 ML SDV IV PRN (13:22)
[2017-09-16] MEDS ORDERED: SIMETHICONE 80 MG TAB.CHEW PO SCH (16:00)
--- NOTE | 2017-09-16 16:17 | PDOC PROGRESS REPORT ---
Subjective Progress Note for:: 09/16/17 Subjective:: Patient had episodes of vomiting earlier today that current subsided following administration of IV Zofran. P.O intake remain poor so far today as per nursing staff and daughter at bedside. No chest pain or difficulty with breathing. No abdominal pain but persistent increase abdominal distention. No fever or chills. Reason For Visit: NEW ONSET AFIB; DEHYDRATION, PROBABLE SEPSIS Physical Exam Vital Signs: Temp Pulse Resp BP Pulse Ox 97.2 F 65 18 136/75 H 95 09/16/17 12:06 09/16/17 12:06 09/16/17 12:06 09/16/17 12:06 09/16/17 12:06 Intake & Output 09/15/17 09/16/17 09/17/17 06:59 06:59 06:59 Intake Total 3326 3015 200 Balance 3326 3015 200 Physical Exam: General appearance: PRESENT: no acute distress, well-developed, well-nourished Head exam: PRESENT: atraumatic, normocephalic Eye exam: PRESENT: conjunctiva pink, EOMI, PERRLA. ABSENT: scleral icterus Mouth exam: PRESENT: moist Respiratory exam: PRESENT: clear to auscultation skyler, decreased breath sounds - at lung bases Cardiovascular exam: PRESENT: RRR. ABSENT: diastolic murmur, rubs, systolic murmur GI/Abdominal exam: PRESENT: distended, soft, normal bowel sounds. ABSENT: organomegaly, tenderness Extremities exam: ABSENT: pedal edema Musculoskeletal exam: PRESENT: deformity - related to multiple joints involvement with arthritis Neurological exam: PRESENT: alert, awake, oriented to person, oriented to place , oriented to time, oriented to situation, CN II-XII grossly intact. ABSENT: motor sensory deficit Psychiatric exam: PRESENT: appropriate affect, normal mood. ABSENT: homicidal ideation, suicidal ideation Skin exam: PRESENT: dry, intact, warm. ABSENT: cyanosis, rash. Results Laboratory Results: 09/15/17 04:26 09/15/17 04:26 Impressions: Chest X-Ray 09/13/17 19:48 IMPRESSION: NO SIGNIFICANT RADIOGRAPHIC FINDING IN THE CHEST. Head CT 09/13/17 19:48 IMPRESSION: CHRONIC CHANGES OF ATROPHY AND MICROVASCULAR ISCHEMIA. NO ACUTE PROCESS. EVIDENCE OF ACUTE STROKE: NO. Acute Abdomen Series 09/15/17 00:00 IMPRESSION: Chronic/recurrent colonic ileus pattern. Differential diagnosis includes obstruction. Assessment & Plan - Diagnosis (1) New onset atrial fibrillation Is this a current diagnosis for this admission?: Yes (2) Dehydration Is this a current diagnosis for this admission?: Yes Plan: Her hypernatremia and metabolic acidosis are reflection of ongoing dehydration from lack of fluid intake and infectious process respectively. (3) Probable sepsis Is this a current diagnosis for this admission?: Yes Plan: Considered due to presentation with confusion, leukocytosis and abnormal urinalysis. Urine culture did grew Enterococcus Faecalis. (4) Physical debility Is this a current diagnosis for this admission?: Yes (5) HTN (hypertension) Qualifiers: Hypertension type: essential hypertension Qualified Code(s): I10 - Essential (primary) hypertension Is this a current diagnosis for this admission?: Yes (6) Diabetes mellitus type 2 in nonobese Is this a current diagnosis for this admission?: Yes (7) Hyperlipidemia associated with type 2 diabetes mellitus Is this a current diagnosis for this admission?: Yes (8) Hypothyroidism Qualifiers: Hypothyroidism type: acquired Qualified Code(s): E03.9 - Hypothyroidism, unspecified Is this a current diagnosis for this admission?: Yes (9) History of CVA (cerebrovascular accident) Is this a current diagnosis for this admission?: Yes (10) Osteoarthritis involving multiple joints on both sides of body Is this a current diagnosis for this admission?: Yes (11) Enterococcus UTI Is this a current diagnosis for this admission?: Yes (12) Paralytic ileus of large intestine Is this a current diagnosis for this admission?: Yes Plan: May be a consequence of ongoing infection, hypokalemia and low magnesium level. See attending physician orders for details. - Time Time Spent with patient: 25-34 minutes Medications reviewed and adjusted accordingly: Yes Anticipated discharge: SNF Within: Other - Inpatient Certification Based on my medical assessment, after consideration of the patient's comorbidities, presenting symptoms, or acuity I expect that the services needed warrant INPATIENT care.: Yes I certify that my determination is in accordance with my understanding of Medicare's requirements for reasonable and necessary INPATIENT services [42 CFR 412.3e].: Yes Medical Necessity: Need Close Monitoring Due to Risk of Patient Decompensation, Need For IV Fluids, Need For Continuous Telemetry Monitoring, Need for IV Antibiotics, Risk of Complication if Not Cared For in Hospital Post Hospital Care: D/C or Transfer Summary - Plan Summary Plan Summary: Continue IV Levoquin coverage. Start on Dulcolax 10 mg IA and Simethicone on 120 mg p.o pchs for distention management. Obtain CBC with diff, BMP, and Mag levels in am.
[2017-09-16] MEDS ORDERED: BISACODYL 10 MG SUPP.RECT PR ONE (17:00)
[2017-09-16] MEDS: SIMETHICONE 80 MG TAB.CHEW PO SCH ×2 (18:53→21:37)
[2017-09-16] MEDS: DIPHENHYDRAMINE HCL 25 MG CAPSULE PO PRN (21:37)
[2017-09-16] MEDS: ATORVASTATIN CALCIUM 20 MG TABLET PO SCH (21:38)
[2017-09-17 05:07] LABS: ABSOLUTE BASOPHILS # (AUTO) 0.1 10^3/uL (0.0-0.2); ABSOLUTE EOSINOPHILS # (AUTO) 0.2 10^3/uL (0.0-0.6); ABSOLUTE LYMPHOCYTES (AUTO) 2.5 10^3/uL (0.5-4.7); ABSOLUTE MONOCYTES (AUTO) 0.9 10^3/uL (0.1-1.4); ABSOLUTE NEUT (AUTO) 6.2 10^3/uL (1.7-8.2); BASOPHILS % (AUTO) 0.5 % (0-2); EOSINOPHILS % (AUTO) 1.6 % (0-6); HEMATOCRIT 30.5 % (36.0-47.0); HEMOGLOBIN 10.5 g/dL (12.0-15.5); LYMPHOCYTES % (AUTO) 25.5 % (13-45); MEAN CORPUSCULAR HEMOGLOBIN 29.5 pg (27.0-33.4); MEAN CORPUSCULAR HGB CONC 34.4 g/dL (32.0-36.0); MEAN CORPUSCULAR VOLUME 86 fl (80-97); MONOCYTES % (AUTO) 9.4 % (3-13); PLATELET COUNT 203 10^3/uL (150-450); RED BLOOD COUNT 3.56 10^6/uL (3.72-5.28); RED CELL DISTRIBUTION WIDTH 13.8 % (11.5-14.0); TOTAL CELLS COUNTED % (AUTO) 100 %; WHITE BLOOD COUNT 9.9 10^3/uL (4.0-10.5)
[2017-09-17 05:36] LABS: ANION GAP 10 (5-19); BLOOD UREA NITROGEN 13 mg/dL (7-20); CALCIUM 7.9 mg/dL (8.4-10.2); CARBON DIOXIDE 20 mmol/L (22-30); CHLORIDE 112 mmol/L (98-107); GLUCOSE 88 mg/dL (75-110); SODIUM 141.5 mmol/L (137-145)
[2017-09-17 05:46] LABS: POTASSIUM 2.7 mmol/L (3.6-5.0)
[2017-09-17] MEDS ORDERED: MAGNESIUM SULFATE/D5W 1 GM/100 ML RTUPB IV ONE (06:05)
[2017-09-17] MEDS: LEVOTHYROXINE SODIUM 0.112 MG TABLET PO SCH (06:06)
[2017-09-17] MEDS: POTASSIUM CHLORIDE 10 MEQ TABLET.SA PO SCH ×3 (06:10→15:14)
[2017-09-17] MEDS: MAGNESIUM SULFATE 1 GM/D5W 100 ML IV SCH ×2 (06:10→07:12)
[2017-09-17] MEDS: NORMAL SALINE 1000 ML 1,000 ML IV PRN (06:15)
[2017-09-17] MEDS: SIMETHICONE 80 MG TAB.CHEW PO SCH ×4 (10:07→21:46)
[2017-09-17] MEDS: METFORMIN HCL 500 MG TABLET PO SCH ×2 (10:07→15:15)
[2017-09-17] MEDS: AMLODIPINE BESYLATE 5 MG TABLET PO SCH (10:09)
[2017-09-17] MEDS: LOSARTAN POTASSIUM 50 MG TABLET PO SCH (10:09)
[2017-09-17] MEDS: MULTIVITAMIN TABLET PO SCH (10:09)
[2017-09-17] MEDS: CHOLECALCIFEROL (D3) 1,000 UNIT TABLET PO SCH (10:09)
[2017-09-17] MEDS: SERTRALINE HCL 50 MG TABLET PO SCH (10:10)
[2017-09-17] MEDS: APIXABAN 2.5 MG TABLET PO SCH ×2 (10:10→21:33)
[2017-09-17] MEDS: LEVOFLOXACIN 500 MG/D5W RTU 500 MG/100 ML RTUPB IV SCH (10:11)
[2017-09-17] MEDS: ATENOLOL 50 MG TABLET PO SCH (10:13)
[2017-09-17] MEDS: INSULIN LISPRO 100 UNIT/ML 3 ML VIAL SUBCUT PRN (14:22)
--- NOTE | 2017-09-17 17:57 | PDOC PROGRESS REPORT ---
Subjective Progress Note for:: 09/17/17 Subjective:: She was seen by the bedside, she was admitted with new onset atrial fibrillation , enterococcus faecalis UTI. Reason For Visit: NEW ONSET AFIB Physical Exam Vital Signs: Temp Pulse Resp BP Pulse Ox 97.8 F 78 20 147/57 H 93 09/17/17 12:00 09/17/17 12:00 09/17/17 12:00 09/17/17 12:00 09/17/17 12:00 Intake & Output 09/16/17 09/17/17 09/18/17 06:59 06:59 06:59 Intake Total 3015 1320 1393 Output Total 0 Balance 3015 1320 1393 Weight 61.2 kg General appearance: PRESENT: no acute distress Eye exam: PRESENT: PERRLA Respiratory exam: PRESENT: clear to auscultation skyler Cardiovascular exam: PRESENT: +S1, +S2 GI/Abdominal exam: PRESENT: soft Neurological exam: PRESENT: alert Results Laboratory Results: 09/17/17 04:20 09/17/17 04:20 09/17/17 09/17/17 04:20 04:20 WBC 9.9 RBC 3.56 L Hgb 10.5 L Hct 30.5 L MCV 86 MCH 29.5 MCHC 34.4 RDW 13.8 Plt Count 203 Seg Neutrophils % 63.0 Lymphocytes % 25.5 Monocytes % 9.4 Eosinophils % 1.6 Basophils % 0.5 Absolute Neutrophils 6.2 Absolute Lymphocytes 2.5 Absolute Monocytes 0.9 Absolute Eosinophils 0.2 Absolute Basophils 0.1 Sodium 141.5 Potassium 2.7 L* Chloride 112 H Carbon Dioxide 20 L Anion Gap 10 BUN 13 Creatinine 0.64 Est GFR ( Amer) > 60 Est GFR (Non-Af Amer) > 60 Glucose 88 Calcium 7.9 L Magnesium 0.8 L* Impressions: Chest X-Ray 09/13/17 19:48 IMPRESSION: NO SIGNIFICANT RADIOGRAPHIC FINDING IN THE CHEST. Head CT 09/13/17 19:48 IMPRESSION: CHRONIC CHANGES OF ATROPHY AND MICROVASCULAR ISCHEMIA. NO ACUTE PROCESS. EVIDENCE OF ACUTE STROKE: NO. Acute Abdomen Series 09/15/17 00:00 IMPRESSION: Chronic/recurrent colonic ileus pattern. Differential diagnosis includes obstruction. Assessment & Plan - Diagnosis (1) Diabetes mellitus type 2 in nonobese Is this a current diagnosis for this admission?: Yes (2) Enterococcus UTI Is this a current diagnosis for this admission?: Yes (3) New onset atrial fibrillation Is this a current diagnosis for this admission?: Yes - Plan Summary Plan Summary: She will continue Levaquin and another treatment
[2017-09-17 20:37] LABS: POTASSIUM 3.4 mmol/L (3.6-5.0)
[2017-09-17] MEDS ORDERED: MAGNESIUM OXIDE 400 MG TABLET PO ONE (21:15)
[2017-09-17] MEDS: ATORVASTATIN CALCIUM 20 MG TABLET PO SCH (21:33)
[2017-09-17] MEDS: DIPHENHYDRAMINE HCL 25 MG CAPSULE PO PRN (21:45)
[2017-09-18] MEDS: LEVOTHYROXINE SODIUM 0.112 MG TABLET PO SCH (05:56)
[2017-09-18] MEDS: LEVOFLOXACIN 500 MG/D5W RTU 500 MG/100 ML RTUPB IV SCH (12:29)
[2017-09-18] MEDS: CHOLECALCIFEROL (D3) 1,000 UNIT TABLET PO SCH (12:30)
[2017-09-18] MEDS: AMLODIPINE BESYLATE 5 MG TABLET PO SCH (12:30)
[2017-09-18] MEDS: MULTIVITAMIN TABLET PO SCH (12:30)
[2017-09-18] MEDS: METFORMIN HCL 500 MG TABLET PO SCH ×2 (12:31→16:58)
[2017-09-18] MEDS: APIXABAN 2.5 MG TABLET PO SCH ×2 (12:31→21:07)
[2017-09-18] MEDS: SERTRALINE HCL 50 MG TABLET PO SCH (12:31)
[2017-09-18] MEDS: SIMETHICONE 80 MG TAB.CHEW PO SCH ×3 (12:32→21:07)
[2017-09-18] MEDS: MAGNESIUM OXIDE 400 MG TABLET PO SCH (12:32)
[2017-09-18] MEDS: LOSARTAN POTASSIUM 50 MG TABLET PO SCH (12:32)
[2017-09-18] MEDS: ATENOLOL 50 MG TABLET PO SCH (12:34)
--- NOTE | 2017-09-18 15:22 | PDOC PROGRESS REPORT ---
Subjective Progress Note for:: 09/18/17 Subjective:: She was seen by the bedside, she was admitted with new onset atrial fibrillation , enterococcus faecalis UTI. Reason For Visit: NEW ONSET AFIB Physical Exam Vital Signs: Temp Pulse Resp BP Pulse Ox 98.0 F 68 16 141/63 H 99 09/18/17 10:53 09/18/17 10:53 09/18/17 10:53 09/18/17 10:53 09/18/17 10:53 Intake & Output 09/17/17 09/18/17 09/19/17 06:59 06:59 06:59 Intake Total 1320 4412 0 Output Total 0 Balance 1320 4412 0 Weight 61.2 kg 62.2 kg General appearance: PRESENT: no acute distress Head exam: PRESENT: atraumatic, normocephalic Eye exam: PRESENT: conjunctiva pink, EOMI, PERRLA Ear exam: PRESENT: normal external ear exam Mouth exam: PRESENT: moist, tongue midline Neck exam: PRESENT: full ROM Respiratory exam: PRESENT: clear to auscultation skyler Cardiovascular exam: PRESENT: RRR, +S1, +S2 Vascular exam: PRESENT: normal capillary refill GI/Abdominal exam: PRESENT: normal bowel sounds, soft Rectal exam: PRESENT: deferred Neurological exam: PRESENT: alert Psychiatric exam: PRESENT: appropriate affect, normal mood Skin exam: PRESENT: dry, intact, warm. ABSENT: cyanosis, rash Results Laboratory Results: 09/17/17 04:20 09/17/17 20:00 09/17/17 20:00 Potassium 3.4 L Magnesium 1.1 L* Impressions: Chest X-Ray 09/13/17 19:48 IMPRESSION: NO SIGNIFICANT RADIOGRAPHIC FINDING IN THE CHEST. Head CT 09/13/17 19:48 IMPRESSION: CHRONIC CHANGES OF ATROPHY AND MICROVASCULAR ISCHEMIA. NO ACUTE PROCESS. EVIDENCE OF ACUTE STROKE: NO. Acute Abdomen Series 09/15/17 00:00 IMPRESSION: Chronic/recurrent colonic ileus pattern. Differential diagnosis includes obstruction. Assessment & Plan - Diagnosis (1) Diabetes mellitus type 2 in nonobese Is this a current diagnosis for this admission?: Yes (2) Enterococcus UTI Is this a current diagnosis for this admission?: Yes (3) New onset atrial fibrillation Is this a current diagnosis for this admission?: Yes - Plan Summary Plan Summary: Continue treatment
[2017-09-18] MEDS: NORMAL SALINE 1000 ML 1,000 ML IV PRN (16:54)
[2017-09-18] MEDS: DIPHENHYDRAMINE HCL 25 MG CAPSULE PO PRN (21:07)
[2017-09-18] MEDS: ATORVASTATIN CALCIUM 20 MG TABLET PO SCH (21:07)
[2017-09-19] MEDS: LEVOTHYROXINE SODIUM 0.112 MG TABLET PO SCH (05:31)
[2017-09-19] MEDS: METFORMIN HCL 500 MG TABLET PO SCH ×2 (09:31→15:48)
[2017-09-19] MEDS: MAGNESIUM OXIDE 400 MG TABLET PO SCH (09:31)
[2017-09-19] MEDS: SERTRALINE HCL 50 MG TABLET PO SCH (09:31)
[2017-09-19] MEDS: ATENOLOL 50 MG TABLET PO SCH (09:31)
[2017-09-19] MEDS: SIMETHICONE 80 MG TAB.CHEW PO SCH ×4 (09:32→21:34)
[2017-09-19] MEDS: MULTIVITAMIN TABLET PO SCH (09:32)
[2017-09-19] MEDS: AMLODIPINE BESYLATE 5 MG TABLET PO SCH (09:32)
[2017-09-19] MEDS: LOSARTAN POTASSIUM 50 MG TABLET PO SCH (09:32)
[2017-09-19] MEDS: CHOLECALCIFEROL (D3) 1,000 UNIT TABLET PO SCH (09:32)
[2017-09-19] MEDS: APIXABAN 2.5 MG TABLET PO SCH ×2 (09:32→21:34)
[2017-09-19] MEDS: LEVOFLOXACIN 500 MG/D5W RTU 500 MG/100 ML RTUPB IV SCH (09:33)
--- NOTE | 2017-09-19 19:01 | PDOC PROGRESS REPORT ---
Subjective Progress Note for:: 09/19/17 Subjective:: Patient reported improvement in her oral intake although nursing and family say otherwise. She denied nausea or vomiting. No abdominal pain but distention persist. Satisfactory bowel movement. No chest pain or difficulty with breathing. Reason For Visit: NEW ONSET AFIB Physical Exam Vital Signs: Temp Pulse Resp BP Pulse Ox 98.0 F 76 20 152/75 H 96 09/19/17 12:00 09/19/17 14:00 09/19/17 12:00 09/19/17 12:00 09/19/17 12:00 Intake & Output 09/18/17 09/19/17 09/20/17 06:59 06:59 06:59 Intake Total 4412 2500 1500 Output Total 0 Balance 4412 2500 1500 Weight 62.2 kg 64.2 kg Physical Exam: General appearance: PRESENT: no acute distress, well-developed, well-nourished Head exam: PRESENT: atraumatic, normocephalic Eye exam: PRESENT: conjunctiva pink, EOMI, PERRLA. ABSENT: scleral icterus Mouth exam: PRESENT: moist Respiratory exam: PRESENT: clear to auscultation skyler, decreased breath sounds - at lung bases Cardiovascular exam: PRESENT: RRR. ABSENT: diastolic murmur, rubs, systolic murmur GI/Abdominal exam: PRESENT: distended, soft, normal bowel sounds. ABSENT: organomegaly, tenderness Extremities exam: ABSENT: pedal edema Musculoskeletal exam: PRESENT: deformity - related to multiple joints involvement with arthritis Neurological exam: PRESENT: alert, awake, oriented to person, oriented to place , oriented to time, oriented to situation, CN II-XII grossly intact. ABSENT: motor sensory deficit Psychiatric exam: PRESENT: appropriate affect, normal mood. ABSENT: homicidal ideation, suicidal ideation Skin exam: PRESENT: dry, intact, warm. ABSENT: cyanosis, rash. Results Laboratory Results: 09/17/17 04:20 09/17/17 20:00 Impressions: Chest X-Ray 09/13/17 19:48 IMPRESSION: NO SIGNIFICANT RADIOGRAPHIC FINDING IN THE CHEST. Head CT 09/13/17 19:48 IMPRESSION: CHRONIC CHANGES OF ATROPHY AND MICROVASCULAR ISCHEMIA. NO ACUTE PROCESS. EVIDENCE OF ACUTE STROKE: NO. Acute Abdomen Series 09/15/17 00:00 IMPRESSION: Chronic/recurrent colonic ileus pattern. Differential diagnosis includes obstruction. Assessment & Plan - Diagnosis (1) New onset atrial fibrillation Is this a current diagnosis for this admission?: Yes (2) Dehydration Is this a current diagnosis for this admission?: Yes (3) Probable sepsis Is this a current diagnosis for this admission?: Yes (4) Physical debility Is this a current diagnosis for this admission?: Yes (5) HTN (hypertension) Qualifiers: Hypertension type: essential hypertension Qualified Code(s): I10 - Essential (primary) hypertension Is this a current diagnosis for this admission?: Yes (6) Diabetes mellitus type 2 in nonobese Is this a current diagnosis for this admission?: Yes (7) Hyperlipidemia associated with type 2 diabetes mellitus Is this a current diagnosis for this admission?: Yes (8) Hypothyroidism Qualifiers: Hypothyroidism type: acquired Qualified Code(s): E03.9 - Hypothyroidism, unspecified Is this a current diagnosis for this admission?: Yes (9) History of CVA (cerebrovascular accident) Is this a current diagnosis for this admission?: Yes (10) Osteoarthritis involving multiple joints on both sides of body Is this a current diagnosis for this admission?: Yes (11) Enterococcus UTI Is this a current diagnosis for this admission?: Yes (12) Paralytic ileus of large intestine Is this a current diagnosis for this admission?: Yes - Time Time Spent with patient: 25-34 minutes Medications reviewed and adjusted accordingly: Yes Anticipated discharge: SNF - for short termrehabilitation - Inpatient Certification Based on my medical assessment, after consideration of the patient's comorbidities, presenting symptoms, or acuity I expect that the services needed warrant INPATIENT care.: Yes I certify that my determination is in accordance with my understanding of Medicare's requirements for reasonable and necessary INPATIENT services [42 CFR 412.3e].: Yes Medical Necessity: Need Close Monitoring Due to Risk of Patient Decompensation, Need For Continuous Telemetry Monitoring, Need for IV Antibiotics, Risk of Complication if Not Cared For in Hospital Post Hospital Care: D/C or Transfer Summary - Plan Summary Plan Summary: Continue on Levofloxacin coverage for E. faecalis UTI management. Transition to oral therapy. Obtain CBC with diff, BMP, Mag level in am. Patient is agreeable to short term rehabilitation placement.
[2017-09-19] MEDS: ATORVASTATIN CALCIUM 20 MG TABLET PO SCH (21:34)
[2017-09-19] MEDS: DIPHENHYDRAMINE HCL 25 MG CAPSULE PO PRN (21:40)
[2017-09-20 04:47] LABS: ABSOLUTE BASOPHILS # (AUTO) 0.1 10^3/uL (0.0-0.2); ABSOLUTE EOSINOPHILS # (AUTO) 0.2 10^3/uL (0.0-0.6); ABSOLUTE MONOCYTES (AUTO) 1.1 10^3/uL (0.1-1.4); ABSOLUTE NEUT (AUTO) 8.1 10^3/uL (1.7-8.2); BASOPHILS % (AUTO) 0.6 % (0-2); EOSINOPHILS % (AUTO) 1.5 % (0-6); HEMATOCRIT 32.5 % (36.0-47.0); HEMOGLOBIN 11.4 g/dL (12.0-15.5); LYMPHOCYTES % (AUTO) 17.2 % (13-45); MEAN CORPUSCULAR HEMOGLOBIN 29.6 pg (27.0-33.4); MEAN CORPUSCULAR HGB CONC 34.9 g/dL (32.0-36.0); MEAN CORPUSCULAR VOLUME 85 fl (80-97); MONOCYTES % (AUTO) 9.6 % (3-13); PLATELET COUNT 230 10^3/uL (150-450); RED BLOOD COUNT 3.84 10^6/uL (3.72-5.28); RED CELL DISTRIBUTION WIDTH 14.4 % (11.5-14.0); SEGMENTED NEUTROPHILS % (AUTO) 71.1 % (42-78); TOTAL CELLS COUNTED % (AUTO) 100 %; WHITE BLOOD COUNT 11.5 10^3/uL (4.0-10.5)
[2017-09-20 05:08] LABS: ANION GAP 8 (5-19); BLOOD UREA NITROGEN 8 mg/dL (7-20); CALCIUM 8.2 mg/dL (8.4-10.2); CARBON DIOXIDE 21 mmol/L (22-30); CHLORIDE 111 mmol/L (98-107); GLUCOSE 145 mg/dL (75-110); SODIUM 139.9 mmol/L (137-145)
[2017-09-20 05:21] LABS: POTASSIUM 2.7 mmol/L (3.6-5.0)
[2017-09-20] MEDS ORDERED: MAGNESIUM SULFATE/D5W 1 GM/100 ML RTUPB IV ONE (06:00)
[2017-09-20] MEDS: LEVOTHYROXINE SODIUM 0.112 MG TABLET PO SCH (06:07)
[2017-09-20] MEDS: POTASSIUM CHLORIDE 10 MEQ TABLET.SA PO SCH ×4 (06:07→22:07)
[2017-09-20] MEDS: METFORMIN HCL 500 MG TABLET PO SCH ×2 (08:22→17:45)
[2017-09-20] MEDS: INSULIN LISPRO 100 UNIT/ML 3 ML VIAL SUBCUT PRN ×3 (08:22→22:12)
[2017-09-20] MEDS: MAGNESIUM OXIDE 400 MG TABLET PO SCH (08:23)
[2017-09-20] MEDS: MULTIVITAMIN TABLET PO SCH (08:23)
[2017-09-20] MEDS: APIXABAN 2.5 MG TABLET PO SCH ×2 (10:09→21:06)
[2017-09-20] MEDS: CHOLECALCIFEROL (D3) 1,000 UNIT TABLET PO SCH (10:13)
[2017-09-20] MEDS: LOSARTAN POTASSIUM 50 MG TABLET PO SCH (10:13)
[2017-09-20] MEDS: ATENOLOL 50 MG TABLET PO SCH (10:13)
[2017-09-20] MEDS: AMLODIPINE BESYLATE 5 MG TABLET PO SCH (10:14)
[2017-09-20] MEDS: SIMETHICONE 80 MG TAB.CHEW PO SCH ×4 (10:30→21:06)
[2017-09-20] MEDS: SERTRALINE HCL 50 MG TABLET PO SCH (10:31)
[2017-09-20] MEDS: NORMAL SALINE 1000 ML 1,000 ML IV PRN ×2 (10:40→20:56)
[2017-09-20] MEDS: LEVOFLOXACIN 500 MG TABLET PO SCH (11:54)
[2017-09-20 16:25] LABS: ANION GAP 11 (5-19); BLOOD UREA NITROGEN 7 mg/dL (7-20); CALCIUM 8.1 mg/dL (8.4-10.2); CARBON DIOXIDE 21 mmol/L (22-30); CHLORIDE 108 mmol/L (98-107); GLUCOSE 131 mg/dL (75-110); POTASSIUM 3.6 mmol/L (3.6-5.0); SODIUM 139.5 mmol/L (137-145)
[2017-09-20] MEDS ORDERED: ACETAMINOPHEN 325 MG TABLET PO PRN ×2 (17:44→19:50)
[2017-09-20] MEDS: MAGNESIUM SULFATE 1 GM/D5W 100 ML IV SCH ×2 (19:27→20:49)
--- NOTE | 2017-09-20 19:50 | PDOC PROGRESS REPORT ---
Subjective Subjective:: Patient denied any chest pain. No difficulty with breathing. She denied nausea or vomiting, or abdominal pain. P.O intake is fair so far today. There was concern about possible aspiration risk due to pocketing habit with medication. She was subsequently cleared by speech pathologist. Patient and daughter reported neck pain and requesting for pain medication. No fever or chills. Family eventually select [facility] for short term rehabilitation placement. Reason For Visit: NEW ONSET AFIB Physical Exam Vital Signs: Temp Pulse Resp BP Pulse Ox 97.9 F 80 20 137/55 H 99 09/20/17 11:40 09/20/17 14:00 09/20/17 11:40 09/20/17 11:40 09/20/17 11:40 Intake & Output 09/19/17 09/20/17 09/21/17 06:59 06:59 06:59 Intake Total 2500 3692 1781 Balance 2500 3692 1781 Weight 64.2 kg 63.2 kg Physical Exam: General appearance: PRESENT: no acute distress, well-developed, well-nourished Head exam: PRESENT: atraumatic, normocephalic Eye exam: PRESENT: conjunctiva pink, EOMI, PERRLA. ABSENT: scleral icterus Mouth exam: PRESENT: moist Respiratory exam: PRESENT: clear to auscultation skyler, decreased breath sounds - at lung bases Cardiovascular exam: PRESENT: RRR. ABSENT: diastolic murmur, rubs, systolic murmur GI/Abdominal exam: PRESENT: distended, soft, normal bowel sounds. ABSENT: organomegaly, tenderness Extremities exam: ABSENT: pedal edema Musculoskeletal exam: PRESENT: deformity - related to multiple joints involvement with arthritis Neurological exam: PRESENT: alert, awake, oriented to person, oriented to place , oriented to time, oriented to situation, CN II-XII grossly intact. ABSENT: motor sensory deficit Psychiatric exam: PRESENT: appropriate affect, normal mood. ABSENT: homicidal ideation, suicidal ideation Skin exam: PRESENT: dry, intact, warm. ABSENT: cyanosis, rash. Results Laboratory Results: 09/20/17 04:29 09/20/17 15:55 09/20/17 09/20/17 09/20/17 04:29 04:29 15:55 WBC 11.5 H RBC 3.84 Hgb 11.4 L Hct 32.5 L MCV 85 MCH 29.6 MCHC 34.9 RDW 14.4 H Plt Count 230 Seg Neutrophils % 71.1 Lymphocytes % 17.2 Monocytes % 9.6 Eosinophils % 1.5 Basophils % 0.6 Absolute Neutrophils 8.1 Absolute Lymphocytes 2.0 Absolute Monocytes 1.1 Absolute Eosinophils 0.2 Absolute Basophils 0.1 Sodium 139.9 139.5 Potassium 2.7 L* 3.6 Chloride 111 H 108 H Carbon Dioxide 21 L 21 L Anion Gap 8 11 BUN 8 7 Creatinine 0.52 0.62 Est GFR ( Amer) > 60 > 60 Est GFR (Non-Af Amer) > 60 > 60 Glucose 145 H 131 H Calcium 8.2 L 8.1 L Magnesium 0.8 L* 0.9 L* Impressions: Chest X-Ray 09/13/17 19:48 IMPRESSION: NO SIGNIFICANT RADIOGRAPHIC FINDING IN THE CHEST. Head CT 09/13/17 19:48 IMPRESSION: CHRONIC CHANGES OF ATROPHY AND MICROVASCULAR ISCHEMIA. NO ACUTE PROCESS. EVIDENCE OF ACUTE STROKE: NO. Acute Abdomen Series 09/15/17 00:00 IMPRESSION: Chronic/recurrent colonic ileus pattern. Differential diagnosis includes obstruction. Assessment & Plan - Diagnosis (1) New onset atrial fibrillation Is this a current diagnosis for this admission?: Yes (2) Enterococcus UTI Is this a current diagnosis for this admission?: Yes (3) Dehydration Is this a current diagnosis for this admission?: Yes (4) Physical debility Is this a current diagnosis for this admission?: Yes (5) HTN (hypertension) Qualifiers: Hypertension type: essential hypertension Qualified Code(s): I10 - Essential (primary) hypertension Is this a current diagnosis for this admission?: Yes (6) Diabetes mellitus type 2 in nonobese Is this a current diagnosis for this admission?: Yes (7) Hyperlipidemia associated with type 2 diabetes mellitus Is this a current diagnosis for this admission?: Yes (8) Hypothyroidism Qualifiers: Hypothyroidism type: acquired Qualified Code(s): E03.9 - Hypothyroidism, unspecified Is this a current diagnosis for this admission?: Yes (9) History of CVA (cerebrovascular accident) Is this a current diagnosis for this admission?: Yes (10) Osteoarthritis involving multiple joints on both sides of body Is this a current diagnosis for this admission?: Yes (11) Paralytic ileus of large intestine Is this a current diagnosis for this admission?: Yes (12) Hypokalemia due to inadequate potassium intake Is this a current diagnosis for this admission?: Yes Plan: See attending physician orders. (13) Hypomagnesemia Is this a current diagnosis for this admission?: Yes Plan: See attending physician orders. - Time Time Spent with patient: 25-34 minutes Medications reviewed and adjusted accordingly: Yes Anticipated discharge: SNF - for STR placement Within: Other - Inpatient Certification Based on my medical assessment, after consideration of the patient's comorbidities, presenting symptoms, or acuity I expect that the services needed warrant INPATIENT care.: Yes I certify that my determination is in accordance with my understanding of Medicare's requirements for reasonable and necessary INPATIENT services [42 CFR 412.3e].: Yes Medical Necessity: Need Close Monitoring Due to Risk of Patient Decompensation, Need For IV Fluids, Need For Continuous Telemetry Monitoring, Need for IV Antibiotics, Risk of Complication if Not Cared For in Hospital Post Hospital Care: D/C or Transfer Summary - Plan Summary Plan Summary: Continue current management with potassium and magnesium replacement. Obtain BMP and Mag level in am. Allowed Ty;lenol 9975mg po tid prn for pain and temperature management. K-Pad topical therapy for neck pain.
[2017-09-20] MEDS: ATORVASTATIN CALCIUM 20 MG TABLET PO SCH (21:06)
[2017-09-20] MEDS: DIPHENHYDRAMINE HCL 25 MG CAPSULE PO PRN (21:06)
[2017-09-21] MEDS: LEVOTHYROXINE SODIUM 0.112 MG TABLET PO SCH (05:47)
[2017-09-21] MEDS: SERTRALINE HCL 50 MG TABLET PO SCH (09:29)
[2017-09-21] MEDS: ATENOLOL 50 MG TABLET PO SCH (09:29)
[2017-09-21] MEDS: LOSARTAN POTASSIUM 50 MG TABLET PO SCH (09:30)
[2017-09-21] MEDS: SIMETHICONE 80 MG TAB.CHEW PO SCH ×4 (09:30→21:39)
[2017-09-21] MEDS: AMLODIPINE BESYLATE 5 MG TABLET PO SCH (09:31)
[2017-09-21] MEDS: MULTIVITAMIN TABLET PO SCH (09:31)
[2017-09-21] MEDS: METFORMIN HCL 500 MG TABLET PO SCH ×2 (09:31→17:23)
[2017-09-21] MEDS: MAGNESIUM OXIDE 400 MG TABLET PO SCH (09:31)
[2017-09-21] MEDS: CHOLECALCIFEROL (D3) 1,000 UNIT TABLET PO SCH (09:32)
[2017-09-21] MEDS: APIXABAN 2.5 MG TABLET PO SCH ×2 (09:32→21:40)
[2017-09-21] MEDS: INSULIN LISPRO 100 UNIT/ML 3 ML VIAL SUBCUT PRN (11:46)
[2017-09-21] MEDS: LEVOFLOXACIN 500 MG TABLET PO SCH (11:46)
--- NOTE | 2017-09-21 18:32 | PDOC PROGRESS REPORT ---
Subjective Progress Note for:: 09/21/17 Subjective:: Patient continue to report neck and back pain. Currently on Tylenol 975mg po tid with local thermal therapy. No chest pain or difficulty with breathing. She denied nausea or vomiting, or abdominal pain. P.O intake is fair so far today. No fever or chills. Day # 7 on Levofloxacin coverage. Awaiting response from [facility] for short term rehabilitation placement. Reason For Visit: NEW ONSET AFIB Physical Exam Vital Signs: Temp Pulse Resp BP Pulse Ox 98.4 F 81 20 147/64 H 97 09/21/17 11:22 09/21/17 14:00 09/21/17 11:22 09/21/17 11:22 09/21/17 11:22 Intake & Output 09/20/17 09/21/17 09/22/17 06:59 06:59 06:59 Intake Total 3692 3281 1572 Balance 3692 3281 1572 Weight 63.2 kg 62.2 kg Physical Exam: General appearance: PRESENT: no acute distress, well-developed, well-nourished Head exam: PRESENT: atraumatic, normocephalic Eye exam: PRESENT: conjunctiva pink, EOMI, PERRLA. ABSENT: scleral icterus Mouth exam: PRESENT: moist Respiratory exam: PRESENT: clear to auscultation skyler, decreased breath sounds - at lung bases Cardiovascular exam: PRESENT: RRR. ABSENT: diastolic murmur, rubs, systolic murmur GI/Abdominal exam: PRESENT: distended, soft, normal bowel sounds. ABSENT: organomegaly, tenderness Extremities exam: ABSENT: pedal edema Musculoskeletal exam: PRESENT: deformity - related to multiple joints involvement with arthritis, cervical spine muscle spasm with tenderness to palpation. Neurological exam: PRESENT: alert, awake, oriented to person, oriented to place , oriented to time, oriented to situation, CN II-XII grossly intact. ABSENT: motor sensory deficit Psychiatric exam: PRESENT: appropriate affect, normal mood. ABSENT: homicidal ideation, suicidal ideation Skin exam: PRESENT: dry, intact, warm. ABSENT: cyanosis, rash. Results Laboratory Results: 09/20/17 04:29 09/20/17 15:55 Impressions: Chest X-Ray 09/13/17 19:48 IMPRESSION: NO SIGNIFICANT RADIOGRAPHIC FINDING IN THE CHEST. Head CT 09/13/17 19:48 IMPRESSION: CHRONIC CHANGES OF ATROPHY AND MICROVASCULAR ISCHEMIA. NO ACUTE PROCESS. EVIDENCE OF ACUTE STROKE: NO. Acute Abdomen Series 09/15/17 00:00 IMPRESSION: Chronic/recurrent colonic ileus pattern. Differential diagnosis includes obstruction. Assessment & Plan - Diagnosis (1) New onset atrial fibrillation Is this a current diagnosis for this admission?: Yes (2) Enterococcus UTI Is this a current diagnosis for this admission?: Yes (3) Dehydration Is this a current diagnosis for this admission?: Yes (4) Physical debility Is this a current diagnosis for this admission?: Yes (5) HTN (hypertension) Qualifiers: Hypertension type: essential hypertension Qualified Code(s): I10 - Essential (primary) hypertension Is this a current diagnosis for this admission?: Yes (6) Diabetes mellitus type 2 in nonobese Is this a current diagnosis for this admission?: Yes (7) Hyperlipidemia associated with type 2 diabetes mellitus Is this a current diagnosis for this admission?: Yes (8) Hypothyroidism Qualifiers: Hypothyroidism type: acquired Qualified Code(s): E03.9 - Hypothyroidism, unspecified Is this a current diagnosis for this admission?: Yes (9) History of CVA (cerebrovascular accident) Is this a current diagnosis for this admission?: Yes (10) Osteoarthritis involving multiple joints on both sides of body Is this a current diagnosis for this admission?: Yes (11) Paralytic ileus of large intestine Is this a current diagnosis for this admission?: Yes (12) Hypokalemia due to inadequate potassium intake Is this a current diagnosis for this admission?: Yes (13) Hypomagnesemia Is this a current diagnosis for this admission?: Yes - Time Time Spent with patient: 25-34 minutes Medications reviewed and adjusted accordingly: Yes Anticipated discharge: SNF Within: Other - Inpatient Certification Based on my medical assessment, after consideration of the patient's comorbidities, presenting symptoms, or acuity I expect that the services needed warrant INPATIENT care.: Yes I certify that my determination is in accordance with my understanding of Medicare's requirements for reasonable and necessary INPATIENT services [42 CFR 412.3e].: Yes Medical Necessity: Need Close Monitoring Due to Risk of Patient Decompensation, Need For Continuous Telemetry Monitoring, Risk of Complication if Not Cared For in Hospital Post Hospital Care: D/C or Transfer Summary - Plan Summary Plan Summary: Continue current medication and adjunct management. Start on Cyclobenzaprine 2.5 mg p.o q8hrs prn for muscle spasm related pain management. follow up on efforts for rehabilitation placement. Obtain BMP and Mag level.
[2017-09-21 19:16] LABS: ABSOLUTE BASOPHILS # (AUTO) 0.1 10^3/uL (0.0-0.2); ABSOLUTE EOSINOPHILS # (AUTO) 0.2 10^3/uL (0.0-0.6); ABSOLUTE LYMPHOCYTES (AUTO) 2.2 10^3/uL (0.5-4.7); ABSOLUTE MONOCYTES (AUTO) 1.2 10^3/uL (0.1-1.4); ABSOLUTE NEUT (AUTO) 8.9 10^3/uL (1.7-8.2); BASOPHILS % (AUTO) 0.8 % (0-2); EOSINOPHILS % (AUTO) 1.5 % (0-6); HEMATOCRIT 33.9 % (36.0-47.0); HEMOGLOBIN 11.2 g/dL (12.0-15.5); LYMPHOCYTES % (AUTO) 17.3 % (13-45); MEAN CORPUSCULAR HEMOGLOBIN 28.5 pg (27.0-33.4); MEAN CORPUSCULAR HGB CONC 33.1 g/dL (32.0-36.0); MEAN CORPUSCULAR VOLUME 86 fl (80-97); MONOCYTES % (AUTO) 9.4 % (3-13); PLATELET COUNT 305 10^3/uL (150-450); RED BLOOD COUNT 3.95 10^6/uL (3.72-5.28); RED CELL DISTRIBUTION WIDTH 14.4 % (11.5-14.0); TOTAL CELLS COUNTED % (AUTO) 100 %; WHITE BLOOD COUNT 12.6 10^3/uL (4.0-10.5)
[2017-09-21 19:32] LABS: ANION GAP 12 (5-19); BLOOD UREA NITROGEN 9 mg/dL (7-20); CALCIUM 8.8 mg/dL (8.4-10.2); CARBON DIOXIDE 23 mmol/L (22-30); CHLORIDE 105 mmol/L (98-107); GLUCOSE 160 mg/dL (75-110); SODIUM 139.8 mmol/L (137-145)
[2017-09-21] MEDS ORDERED: MAGNESIUM SULFATE/D5W 1 GM/100 ML RTUPB IV ONE (21:30)
[2017-09-21] MEDS: DIPHENHYDRAMINE HCL 25 MG CAPSULE PO PRN (21:41)
[2017-09-21] MEDS: ATORVASTATIN CALCIUM 20 MG TABLET PO SCH (21:41)
[2017-09-21] MEDS: NORMAL SALINE 1000 ML 1,000 ML IV PRN (21:48)
[2017-09-22] MEDS: LEVOTHYROXINE SODIUM 0.112 MG TABLET PO SCH (05:41)
[2017-09-22] MEDS: METFORMIN HCL 500 MG TABLET PO SCH ×2 (08:39→16:20)
[2017-09-22] MEDS: SIMETHICONE 80 MG TAB.CHEW PO SCH ×4 (08:39→21:31)
[2017-09-22] MEDS: MULTIVITAMIN TABLET PO SCH (08:39)
[2017-09-22] MEDS: MAGNESIUM OXIDE 400 MG TABLET PO SCH (08:39)
[2017-09-22] MEDS: APIXABAN 2.5 MG TABLET PO SCH ×2 (10:22→21:32)
[2017-09-22] MEDS: CYCLOBENZAPRINE HCL 10 MG TABLET PO PRN ×2 (10:22→21:32)
[2017-09-22] MEDS: AMLODIPINE BESYLATE 5 MG TABLET PO SCH (10:22)
[2017-09-22] MEDS: LOSARTAN POTASSIUM 50 MG TABLET PO SCH (10:22)
[2017-09-22] MEDS: ATENOLOL 50 MG TABLET PO SCH (10:22)
[2017-09-22] MEDS: SERTRALINE HCL 50 MG TABLET PO SCH (10:22)
[2017-09-22] MEDS: CHOLECALCIFEROL (D3) 1,000 UNIT TABLET PO SCH (10:22)
[2017-09-22] MEDS: NORMAL SALINE 1000 ML 1,000 ML IV PRN (14:43)
--- NOTE | 2017-09-22 19:13 | PDOC PROGRESS REPORT ---
Subjective Progress Note for:: 09/22/17 Subjective:: Patient denied chest pain or difficulty with breathing. Slept most of the day after administration of low dose flexeril. Neck pain is better. No nausea, vomiting, or abdominal pain. No fever or chills. [facility]. Reason For Visit: NEW ONSET AFIB Physical Exam Vital Signs: Temp Pulse Resp BP Pulse Ox 98.3 F 72 18 152/64 H 100 09/22/17 15:41 09/22/17 15:41 09/22/17 15:41 09/22/17 15:41 09/22/17 15:41 Intake & Output 09/21/17 09/22/17 09/23/17 06:59 06:59 06:59 Intake Total 3281 3072 750 Output Total 1 Balance 3281 3071 750 Weight 62.2 kg Physical Exam: General appearance: PRESENT: no acute distress, well-developed, well-nourished Head exam: PRESENT: atraumatic, normocephalic Eye exam: PRESENT: conjunctiva pink, EOMI, PERRLA. ABSENT: scleral icterus Mouth exam: PRESENT: moist Respiratory exam: PRESENT: clear to auscultation skyler, decreased breath sounds - at lung bases Cardiovascular exam: PRESENT: RRR. ABSENT: diastolic murmur, rubs, systolic murmur GI/Abdominal exam: PRESENT: distended, soft, normal bowel sounds. ABSENT: organomegaly, tenderness Extremities exam: ABSENT: pedal edema Musculoskeletal exam: PRESENT: deformity - related to multiple joints involvement with arthritis Neurological exam: PRESENT: alert, awake, oriented to person, oriented to place , oriented to time, oriented to situation, CN II-XII grossly intact. ABSENT: motor sensory deficit Psychiatric exam: PRESENT: appropriate affect, normal mood. ABSENT: homicidal ideation, suicidal ideation Skin exam: PRESENT: dry, intact, warm. ABSENT: cyanosis, rash. Results Laboratory Results: 09/21/17 19:07 09/21/17 19:07 09/21/17 09/21/17 19:07 19:07 WBC 12.6 H RBC 3.95 Hgb 11.2 L Hct 33.9 L MCV 86 MCH 28.5 MCHC 33.1 RDW 14.4 H Plt Count 305 Seg Neutrophils % 71.0 Lymphocytes % 17.3 Monocytes % 9.4 Eosinophils % 1.5 Basophils % 0.8 Absolute Neutrophils 8.9 H Absolute Lymphocytes 2.2 Absolute Monocytes 1.2 Absolute Eosinophils 0.2 Absolute Basophils 0.1 Sodium 139.8 Potassium 4.0 Chloride 105 Carbon Dioxide 23 Anion Gap 12 BUN 9 Creatinine 0.47 L Est GFR ( Amer) > 60 Est GFR (Non-Af Amer) > 60 Glucose 160 H Calcium 8.8 Magnesium 1.1 L* Impressions: Chest X-Ray 09/13/17 19:48 IMPRESSION: NO SIGNIFICANT RADIOGRAPHIC FINDING IN THE CHEST. Head CT 09/13/17 19:48 IMPRESSION: CHRONIC CHANGES OF ATROPHY AND MICROVASCULAR ISCHEMIA. NO ACUTE PROCESS. EVIDENCE OF ACUTE STROKE: NO. Acute Abdomen Series 09/15/17 00:00 IMPRESSION: Chronic/recurrent colonic ileus pattern. Differential diagnosis includes obstruction. Assessment & Plan - Diagnosis (1) New onset atrial fibrillation Is this a current diagnosis for this admission?: Yes (2) Enterococcus UTI Is this a current diagnosis for this admission?: Yes (3) Dehydration Is this a current diagnosis for this admission?: Yes (4) Physical debility Is this a current diagnosis for this admission?: Yes (5) HTN (hypertension) Qualifiers: Hypertension type: essential hypertension Qualified Code(s): I10 - Essential (primary) hypertension Is this a current diagnosis for this admission?: Yes (6) Diabetes mellitus type 2 in nonobese Is this a current diagnosis for this admission?: Yes (7) Hyperlipidemia associated with type 2 diabetes mellitus Is this a current diagnosis for this admission?: Yes (8) Hypothyroidism Qualifiers: Hypothyroidism type: acquired Qualified Code(s): E03.9 - Hypothyroidism, unspecified Is this a current diagnosis for this admission?: Yes (9) History of CVA (cerebrovascular accident) Is this a current diagnosis for this admission?: Yes (10) Osteoarthritis involving multiple joints on both sides of body Is this a current diagnosis for this admission?: Yes (11) Paralytic ileus of large intestine Is this a current diagnosis for this admission?: Yes (12) Hypokalemia due to inadequate potassium intake Is this a current diagnosis for this admission?: Yes (13) Hypomagnesemia Is this a current diagnosis for this admission?: Yes - Time Time Spent with patient: 25-34 minutes Medications reviewed and adjusted accordingly: Yes Anticipated discharge: SNF Within: Other - Inpatient Certification Based on my medical assessment, after consideration of the patient's comorbidities, presenting symptoms, or acuity I expect that the services needed warrant INPATIENT care.: Yes I certify that my determination is in accordance with my understanding of Medicare's requirements for reasonable and necessary INPATIENT services [42 CFR 412.3e].: Yes Medical Necessity: Need Close Monitoring Due to Risk of Patient Decompensation, Need For IV Fluids, Need For Continuous Telemetry Monitoring, Risk of Complication if Not Cared For in Hospital Post Hospital Care: D/C or Transfer Summary - Plan Summary Plan Summary: Continue current management. Follow up pending efforts at SNF placement for rehabilitation. Obtain BMP and Mag level.
[2017-09-22] MEDS: ATORVASTATIN CALCIUM 20 MG TABLET PO SCH (21:32)
[2017-09-22 21:35] LABS: ANION GAP 10 (5-19); BLOOD UREA NITROGEN 10 mg/dL (7-20); CALCIUM 9.1 mg/dL (8.4-10.2); CARBON DIOXIDE 22 mmol/L (22-30); CHLORIDE 109 mmol/L (98-107); GLUCOSE 142 mg/dL (75-110); POTASSIUM 3.7 mmol/L (3.6-5.0); SODIUM 141.1 mmol/L (137-145)
[2017-09-22] MEDS: MAGNESIUM SULFATE 1 GM/D5W 100 ML IV SCH (22:56)
[2017-09-22] MEDS ORDERED: POTASSIUM CHLORIDE 10 MEQ TABLET.SA PO ONE (23:00)
[2017-09-23] MEDS: MAGNESIUM SULFATE 1 GM/D5W 100 ML IV SCH (00:27)
[2017-09-23] MEDS: LEVOTHYROXINE SODIUM 0.112 MG TABLET PO SCH (05:41)
[2017-09-23 06:52] LABS: ANION GAP 6 (5-19); BLOOD UREA NITROGEN 11 mg/dL (7-20); CARBON DIOXIDE 24 mmol/L (22-30); CHLORIDE 110 mmol/L (98-107); GLUCOSE 118 mg/dL (75-110); POTASSIUM 4.1 mmol/L (3.6-5.0); SODIUM 140.1 mmol/L (137-145)
[2017-09-23] MEDS: SIMETHICONE 80 MG TAB.CHEW PO SCH ×4 (08:47→21:00)
[2017-09-23] MEDS: MULTIVITAMIN TABLET PO SCH (08:53)
[2017-09-23] MEDS: METFORMIN HCL 500 MG TABLET PO SCH ×2 (08:53→15:35)
[2017-09-23] MEDS: MAGNESIUM OXIDE 400 MG TABLET PO SCH (08:53)
[2017-09-23] MEDS: APIXABAN 2.5 MG TABLET PO SCH ×2 (09:58→21:00)
[2017-09-23] MEDS: CHOLECALCIFEROL (D3) 1,000 UNIT TABLET PO SCH (09:58)
[2017-09-23] MEDS: SERTRALINE HCL 50 MG TABLET PO SCH (09:58)
[2017-09-23] MEDS: AMLODIPINE BESYLATE 5 MG TABLET PO SCH (09:58)
[2017-09-23] MEDS: ATENOLOL 50 MG TABLET PO SCH (09:59)
[2017-09-23] MEDS: LOSARTAN POTASSIUM 50 MG TABLET PO SCH (09:59)
[2017-09-23] MEDS: NORMAL SALINE 1000 ML 1,000 ML IV PRN (12:39)
--- NOTE | 2017-09-23 15:08 | PDOC TRANSFER SUMMARY ---
General - Admit/Disc Date/PCP Admission Date/Primary Care Provider: 09/13/17 23:17 Discharge Date: 09/23/17 - Discharge Diagnosis (1) New onset atrial fibrillation Is this a current diagnosis for this admission?: Yes (2) Enterococcus UTI Is this a current diagnosis for this admission?: Yes (3) Dehydration Is this a current diagnosis for this admission?: Yes (4) Physical debility Is this a current diagnosis for this admission?: Yes (5) HTN (hypertension) Is this a current diagnosis for this admission?: Yes (6) Diabetes mellitus type 2 in nonobese Is this a current diagnosis for this admission?: Yes (7) Hyperlipidemia associated with type 2 diabetes mellitus Is this a current diagnosis for this admission?: Yes (8) Hypothyroidism Is this a current diagnosis for this admission?: Yes (9) History of CVA (cerebrovascular accident) Is this a current diagnosis for this admission?: Yes (10) Osteoarthritis involving multiple joints on both sides of body Is this a current diagnosis for this admission?: Yes (11) Paralytic ileus of large intestine Is this a current diagnosis for this admission?: Yes (12) Hypokalemia due to inadequate potassium intake Is this a current diagnosis for this admission?: Yes (13) Hypomagnesemia Is this a current diagnosis for this admission?: Yes - Additional Information Resuscitation Status: Do Not Intubate Home Medications: Amlodipine Besylate [Norvasc 5 mg Tablet] 5 mg PO DAILY 09/14/17 Aspirin [Adult Low Dose Aspirin EC] 81 mg PO DAILY 09/14/17 Atenolol [Tenormin 100 mg Tablet] 100 mg PO DAILY 09/14/17 Atorvastatin Calcium [Lipitor 20 mg Tablet] 20 mg PO QHS 09/14/17 Cholecalciferol (Vitamin D3) [Vitamin D3 1000 Unit Tablet] 1,000 unit PO DAILY 09/14/17 Levothyroxine Sodium [Synthroid 0.112 mg Tablet] 112 mcg PO Q6AM 09/14/17 Losartan Potassium 100 mg PO DAILY 09/14/17 Metformin HCl [Metformin HCl ER] 1,000 mg PO BIDBS 09/14/17 Multivitamin [Daily Multiple Vitamin] 1 each PO DAILY 09/14/17 Potassium Chloride 10 meq PO DAILY 09/14/17 Sertraline HCl 100 mg PO DAILY 09/14/17 Acetaminophen [Tylenol 325 mg Tablet] 975 mg PO Q8HP PRN tablet 09/23/17 Apixaban [Eliquis 2.5 mg Tablet] 2.5 mg PO Q12 tablet 09/23/17 Magnesium Oxide [Mag-Ox 400 mg Tablet] 400 mg PO QAM tablet 09/23/17 Simethicone [Mylicon 80 mg Chewable Tablet] 120 mg PO PCHS tab.chew 09/23/17 History of Present Illness Admission Date/PCP: 09/13/17 23:17 Patient complains of: Generalized weakness History of Present Illness: TRA DESAI is a 76 year old female known to my practice who was brought to the ED by daughter due to worsening generalized weakness over preceding 3 days. Daughter reported associated poor appetite and oral intake over the last several days. Daughter denied any associated fever, chills, nausea, vomiting, diarrhea or constipation. No reported difficulty with breathing or chest pain. daughter reported increasing need for ADL and IADL. In the ED her initial evaluation was significant for dehydration, possible sepsis with focus of UTI and findings suggestive of new onset atrial fibrillation. Her morbidities include Hypertension, Hypothyroidism, Diabetes Mellitus type 2, Hyperlipidemia, prior history of CVA and Osteoarthritis. Daughter reported compliance with home prescribed medications prior to her current state of health. Hospital Course Hospital Course: Patient was admitted for significant generalized debility with associated new onset atrial fibrillation and probably sepsis from UTI. She was managed with IV antibiotic coverage and oral Eliquis for anticoagulation. Her urine culture did grew E. Faecalis sensitive to Levofloxacin. She was adequately covered during her hospitalization. She has severe hypokalemia and hypomagnesemia necessitating several doses of replacement therapy for the electrolytes. Patient reported issue with neck pain that was related to cervical spine spondylosis. She was treated with low dose of Cyclobenzaprine with Tylenol and warm compress. Her appetite and p.o intake did improve during this admission. She was evaluated by speech pathologist without any identifiable problem with her swallowing. She has remain afebrile and agreeable to transfer to SNF for short term rehabilitation. She will be transferred to [facility] today. She will follow up in the office with me as instructed before discharge from [facility]. Physical Exam Vital Signs: Temp Pulse Resp BP Pulse Ox 97.8 F 76 19 147/67 H 96 09/23/17 12:00 09/23/17 14:00 09/23/17 12:00 09/23/17 12:00 09/23/17 12:00 Intake & Output 09/22/17 09/23/17 09/24/17 06:59 06:59 06:59 Intake Total 3072 1350 355 Output Total 1 Balance 3071 1350 355 General appearance: PRESENT: no acute distress, well-developed, well-nourished Head exam: PRESENT: atraumatic, normocephalic Eye exam: PRESENT: conjunctiva pink, EOMI, PERRLA. ABSENT: scleral icterus Mouth exam: PRESENT: moist Respiratory exam: PRESENT: clear to auscultation skyler, decreased breath sounds - at lung bases Cardiovascular exam: PRESENT: RRR. ABSENT: diastolic murmur, rubs, systolic murmur GI/Abdominal exam: PRESENT: distended, soft, normal bowel sounds. ABSENT: organomegaly, tenderness Extremities exam: ABSENT: pedal edema Musculoskeletal exam: PRESENT: deformity - related to multiple joints involvement with arthritis Neurological exam: PRESENT: alert, awake, oriented to person, oriented to place , oriented to time, oriented to situation, CN II-XII grossly intact. ABSENT: motor sensory deficit Psychiatric exam: PRESENT: appropriate affect, normal mood. ABSENT: homicidal ideation, suicidal ideation Skin exam: PRESENT: dry, intact, warm. ABSENT: cyanosis, rash. Results Laboratory Results: 09/21/17 19:07 09/23/17 06:17 09/22/17 09/23/17 21:10 06:17 Sodium 141.1 140.1 Potassium 3.7 4.1 Chloride 109 H 110 H Carbon Dioxide 22 24 Anion Gap 10 6 BUN 10 11 Creatinine 0.58 0.54 Est GFR ( Amer) > 60 > 60 Est GFR (Non-Af Amer) > 60 > 60 Glucose 142 H 118 H Calcium 9.1 9.0 Magnesium 1.1 L* 1.5 L Impressions: Chest X-Ray 09/13/17 19:48 IMPRESSION: NO SIGNIFICANT RADIOGRAPHIC FINDING IN THE CHEST. Head CT 09/13/17 19:48 IMPRESSION: CHRONIC CHANGES OF ATROPHY AND MICROVASCULAR ISCHEMIA. NO ACUTE PROCESS. EVIDENCE OF ACUTE STROKE: NO. Acute Abdomen Series 09/15/17 00:00 IMPRESSION: Chronic/recurrent colonic ileus pattern. Differential diagnosis includes obstruction. Transfer Plan - Time Spent with Patient Time spent with patient: Greater than 30 Minutes - Care coordination and post discharge dplan discussion with daughter upon discharge from SNF. Qualifiers - * PATEINT BEING DISCHARGED WITH ANY OF THE FOLLOWING DIAGNOSIS?: No Plan Discharge Plan: Transfer to [facility] today. Follow up in the office upon discharge from the facility.
[2017-09-23] MEDS: CYCLOBENZAPRINE HCL 10 MG TABLET PO PRN (20:59)
[2017-09-23] MEDS: DIPHENHYDRAMINE HCL 25 MG CAPSULE PO PRN (21:03)
[2017-09-23] MEDS: ATORVASTATIN CALCIUM 20 MG TABLET PO SCH (21:03)
[2017-09-23 22:07] VITALS: BP 158/84
== END 2017-09-23 21:30 | DRG 872 ==
LOC: ER 19:10 → EH 23:17 → 3N 09-14 00:58
PROVIDERS: ADMIT Internal Medicine Geriatric Medicine; ATTEND Internal Medicine Geriatric Medicine
DX: A41.9 Sepsis, unspecified organism (principal); N39.0 Urinary tract infection, site not specified; E87.0 Hyperosmolality and hypernatremia; E87.2 Acidosis; K56.0 Paralytic ileus; I48.91 Unspecified atrial fibrillation; I10 Essential (primary) hypertension; E03.9 Hypothyroidism, unspecified; E11.9 Type 2 diabetes mellitus without complications; I25.10 Atherosclerotic heart disease of native coronary artery without angina pectoris; E86.0 Dehydration; R53.81 Other malaise; B95.2 Enterococcus as the cause of diseases classified elsewhere; E87.6 Hypokalemia; E83.42 Hypomagnesemia; M19.90 Unspecified osteoarthritis, unspecified site; Z79.84 Long term (current) use of oral hypoglycemic drugs; Z79.82 Long term (current) use of aspirin; Z79.899 Other long term (current) drug therapy; Z86.73 Personal history of transient ischemic attack (TIA), and cerebral infarction without residual deficits
CPT/HCPCS: 36415; 70450; 71046; 74022; 80048; 80053; 81001; 82140; 82962; 83735; 84132; 84484; 85025; 85610; 85730; 87086; 87088; 87186; 93005; 93010; 96360; 99285; G8978-GP; G8979-GP; G8996-GN; G8997-GN; G8998-GN; J1650; J1815; J1956; J2405; J3475; J7030

== ENCOUNTER 2018-04-26 22:38 | Inpatient (IN) | payer MEDICARE ==
--- NOTE | 2018-04-26 23:00 | ER Document Report ---
ED General - General Chief Complaint: Urinary Frequency Stated Complaint: WELLNESS CHECK Time Seen by Provider: 04/26/18 22:50 Mode of Arrival: Medic Information source: Patient, Emergency Med Personnel Notes: 77-year-old female brought to the emergency department by EMS for possible urinary tract infection. Patient's family called them stating that she has been urinating a lot tonight. They think that she might have a urinary tract infection wanted her to be evaluated. Daughter at bedside. Says that patient was also more aggressive tonight than normal. She says this happened the last time the patient had a UTI. In the ED, Patient is awake, alert, oriented x3. She has no complaints. Patient denies any dysuria, increased urgency, increased frequency, abdominal pain, nausea, vomiting, diarrhea, constipation. TRAVEL OUTSIDE OF THE [place] IN LAST 30 DAYS: No - HPI Onset: This afternoon Onset/Duration: Sudden Quality of pain: No pain Severity: None Pain Level: Denies Associated symptoms: None Exacerbated by: Denies Relieved by: Denies Recently seen / treated by doctor: No - Related Data Allergies/Adverse Reactions: Penicillins Allergy (Severe, Verified 09/13/17 19:13) Anaphylaxis Past Medical History - General Information source: Patient - Social History Smoking Status: Former Smoker Family History: Reviewed & Not Pertinent - Past Medical History Cardiac Medical History: Reports: Hx Atrial Fibrillation, Hx Coronary Artery Disease, Hx Hypercholesterolemia, Hx Hypertension Denies: Hx Congestive Heart Failure, Hx Heart Attack Pulmonary Medical History: Denies: Hx Asthma, Hx Bronchitis, Hx COPD, Hx Pneumonia Neurological Medical History: Reports: Hx Cerebrovascular Accident - stroke x 2. Denies: Hx Seizures Endocrine Medical History: Reports: Hx Diabetes Mellitus Type 2 Renal/ Medical History: Denies: Hx Peritoneal Dialysis GI Medical History: Denies: Hx Hepatitis, Hx Hiatal Hernia, Hx Ulcer Musculoskeletal Medical History: 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 Psychiatric Medical History: Reports: Hx Depression Infectious Medical History: Denies: Hx Hepatitis Past Surgical History: Reports: Hx Cholecystectomy, Hx Hysterectomy. Denies: Hx Mastectomy, Hx Open Heart Surgery, Hx Pacemaker - Immunizations Hx Diphtheria, Pertussis, Tetanus Vaccination: Yes Hx Pneumococcal Vaccination: 06/20/00 Review of Systems - Review of Systems Constitutional: No symptoms reported EENT: No symptoms reported Cardiovascular: No symptoms reported Respiratory: No symptoms reported Gastrointestinal: No symptoms reported Genitourinary: No symptoms reported Female Genitourinary: No symptoms reported Musculoskeletal: No symptoms reported Skin: No symptoms reported Hematologic/Lymphatic: No symptoms reported Neurological/Psychological: No symptoms reported -: Yes All other systems reviewed and negative Physical Exam - Vital signs Vitals: Temp Pulse Resp BP Pulse Ox 98.0 F 75 20 150/90 H 98 04/26/18 22:52 04/26/18 22:52 04/26/18 22:52 04/26/18 22:52 04/26/18 22:52 - General Notes: PHYSICAL EXAMINATION: GENERAL: Well-appearing, well-nourished and in no acute distress. HEAD: Atraumatic, normocephalic. EYES: Pupils equal round and reactive to light, extraocular movements intact, conjunctiva are normal. ENT: Nares patent, oropharynx clear without exudates. Moist mucous membranes. NECK: Normal range of motion, supple without lymphadenopathy LUNGS: Breath sounds clear to auscultation bilaterally and equal. No wheezes rales or rhonchi. HEART: Regular rate and rhythm without murmurs ABDOMEN: Soft, nontender. Distended abdomen. No guarding, no rebound. Female : deferred Musculoskeletal: Normal range of motion, no pitting or edema. No cyanosis. NEUROLOGICAL: Cranial nerves grossly intact. Normal speech, normal gait. Normal sensory, motor exams PSYCH: Normal mood, normal affect. SKIN: Warm, Dry, normal turgor, no rashes or lesions noted. Course - Re-evaluation Re-evalutation: 04/27/18 03:41 Abdomen is distended. Daughter says the abdomen always appears this way. Patient denies any abdominal pain, nausea, vomiting, diarrhea, constipation. Straight cath urine obtained. Clumps were appreciated in the urine. It was noted as being extremely cloudy. UA shows WBCs but no leukocyte esterase or nitrates. 3+ bacteria. Blood and urine cultures obtained. Levofloxacin started for UTI. Lactic acid elevated. Patient given fluids. Labs significant for increased anion gap. Likely due to the lactic acidosis. WBC normal. Vitals are stable. I contacted Dr. Aviles for admission. He would like obs-tele bed. 04/27/18 03:43 04/27/18 03:48 - Vital Signs Vital signs: Temp Pulse Resp BP Pulse Ox 98.6 F 69 11 L 140/58 H 94 04/27/18 03:38 04/27/18 03:38 04/27/18 03:38 04/27/18 03:38 04/27/18 03:38 - Laboratory Result Diagrams: 04/26/18 23:26 04/26/18 23:26 Laboratory results interpreted by me: 04/26/18 04/26/18 04/27/18 23:15 23:26 01:56 Carbonic Acid ABG pCO2 ABG HCO3 ABG Total CO2 Sodium 146.7 H Chloride 108 H Carbon Dioxide 19 L Anion Gap 20 H BUN 30 H Glucose 186 H Lactic Acid 3.2 H Calcium 10.3 H Urine Protein >=500 H 04/27/18 02:31 Carbonic Acid 0.89 L ABG pCO2 29.7 L ABG HCO3 17.5 L ABG Total CO2 18.4 L Sodium Chloride Carbon Dioxide Anion Gap BUN Glucose Lactic Acid Calcium Urine Protein Discharge - Discharge Clinical Impression: Lactic acid acidosis Urinary tract infection Qualifiers: Urinary tract infection type: site unspecified Hematuria presence: without hematuria Qualified Code(s): N39.0 - Urinary tract infection, site not specified Disposition: ADMITTED OBSERVATION Admitting Provider: [facility] Admitted: Telemetry Referrals: KOMAL FINK MD [Primary Care Provider] - Follow up as needed
[2018-04-26 23:45] LABS: ABSOLUTE EOSINOPHILS # (AUTO) 0.1 10^3/uL (0.0-0.6); ABSOLUTE LYMPHOCYTES (AUTO) 1.4 10^3/uL (0.5-4.7); ABSOLUTE MONOCYTES (AUTO) 1.2 10^3/uL (0.1-1.4); ABSOLUTE NEUT (AUTO) 7.2 10^3/uL (1.7-8.2); BASOPHILS % (AUTO) 0.5 % (0-2); HEMATOCRIT 38.6 % (36.0-47.0); HEMOGLOBIN 13.3 g/dL (12.0-15.5); LYMPHOCYTES % (AUTO) 14.2 % (13-45); MEAN CORPUSCULAR HEMOGLOBIN 30.2 pg (27.0-33.4); MEAN CORPUSCULAR HGB CONC 34.6 g/dL (32.0-36.0); MEAN CORPUSCULAR VOLUME 87 fl (80-97); MONOCYTES % (AUTO) 12.3 % (3-13); PLATELET COUNT 241 10^3/uL (150-450); RED BLOOD COUNT 4.42 10^6/uL (3.72-5.28); RED CELL DISTRIBUTION WIDTH 13.8 % (11.5-14.0); TOTAL CELLS COUNTED % (AUTO) 100 %
[2018-04-26 23:56] LABS: ALANINE AMINOTRANSFERASE 17 U/L (9-52); ALBUMIN 4.5 g/dL (3.5-5.0); ALKALINE PHOSPHATASE 78 U/L (38-126); ASPARTATE AMINO TRANSFERASE 27 U/L (14-36); BILIRUBIN,DIRECT 0.2 mg/dL (0.0-0.4); BILIRUBIN,TOTAL 0.4 mg/dL (0.2-1.3); BLOOD UREA NITROGEN 30 mg/dL (7-20); CALCIUM 10.3 mg/dL (8.4-10.2); GLUCOSE 186 mg/dL (75-110); POTASSIUM 3.8 mmol/L (3.6-5.0); TOTAL PROTEIN 7.7 g/dL (6.3-8.2)
[2018-04-27 00:01] LABS: CARBON DIOXIDE 19 mmol/L (22-30); CHLORIDE 108 mmol/L (98-107); SODIUM 146.7 mmol/L (137-145)
[2018-04-27 00:10] LABS: ANION GAP 20 (5-19)
[2018-04-27 00:16] LABS: APPEARANCE,URINE CLOUDY; BILIRUBIN,URINE NEGATIVE (NEGATIVE); COLOR,URINE AMBER; GLUCOSE, URINE NEGATIVE (NEGATIVE); KETONES,URINE NEGATIVE (NEGATIVE); LEUKOCYTE ESTERASE,URINE NEGATIVE (NEGATIVE); NITRITE,URINE NEGATIVE (NEGATIVE); PROTEIN,URINE >=500 mg/dL (NEGATIVE); URINE SPECIFIC GRAVITY 1.025; UROBILINOGEN,URINE NEGATIVE mg/dL (<2.0)
[2018-04-27] MEDS ORDERED: NORMAL SALINE 1000 ML 1,000 ML IV ONE ×2 (00:37→03:11)
[2018-04-27] MEDS ORDERED: LEVOFLOXACIN 750 MG/D5W RTU 750 MG/150 ML RTUPB IV ONE (00:54)
[2018-04-27 02:40] LABS: ARTERIAL BLOOD BASE EXCESS -6.3 mmol/L; ARTERIAL BLOOD H2CO3 0.89 mmol/L (1.05-1.35); ARTERIAL BLOOD HCO3 17.5 mmol/L (20-24); ARTERIAL BLOOD O2 SATURATION 95.9 % (94-98); ARTERIAL BLOOD PCO2 29.7 mmHg (35-45); ARTERIAL BLOOD PH 7.39 (7.35-7.45); ARTERIAL BLOOD PO2 80.1 mmHg (80-100); ARTERIAL BLOOD TOTAL CO2 18.4 mmol/L (21-25)
[2018-04-27 02:41] LABS: ARTERIAL BLOOD FIO2 ROOM AIR
[2018-04-27] MEDS: NORMAL SALINE 1000 ML 1,000 ML IV PRN ×2 (06:42→16:50)
[2018-04-27] MEDS ORDERED: SIMETHICONE 80 MG TAB.CHEW PO PRN (09:23)
[2018-04-27] MEDS ORDERED: DEXTROSE 50%-WATER 25 GM/50 ML DISP.SYRIN IV PRN ×2 (09:25)
[2018-04-27] MEDS ORDERED: DEXTROSE 40% GEL 15 GM TUBE PO PRN ×2 (09:25)
[2018-04-27] MEDS ORDERED: INSULIN LISPRO 100 UNIT/ML 3 ML VIAL SUBCUT PRN (09:25)
[2018-04-27] MEDS ORDERED: GLUCAGON,HUMAN RECOMB 1 MG INJ IM PRN (09:25)
[2018-04-27] MEDS: SERTRALINE HCL 50 MG TABLET PO SCH (09:39)
[2018-04-27] MEDS: METFORMIN HCL 500 MG TABLET PO SCH ×2 (09:40→17:01)
[2018-04-27] MEDS: LOSARTAN POTASSIUM 50 MG TABLET PO SCH (09:40)
[2018-04-27] MEDS: ASPIRIN 81 MG TABLET, ENT COATED PO SCH (09:40)
[2018-04-27] MEDS: POTASSIUM CHLORIDE 10 MEQ CAPSULE.ER PO SCH ×3 (09:40→19:23)
[2018-04-27] MEDS: AMLODIPINE BESYLATE 5 MG TABLET PO SCH (09:40)
[2018-04-27] MEDS: MAGNESIUM OXIDE 400 MG TABLET PO SCH (09:41)
[2018-04-27] MEDS ORDERED: (PENDING PHARMACY ID) (Atenolol [Tenormin 100 Mg Tablet] 100 MG) PO SCH (10:00)
[2018-04-27] MEDS: CHOLECALCIFEROL (D3) 1,000 UNIT TABLET PO SCH (10:01)
[2018-04-27] MEDS: ATENOLOL 50 MG TABLET PO SCH (10:01)
--- NOTE | 2018-04-27 19:50 | PDOC H&P ---
History of Present Illness Admission Date/PCP: 04/27/18 03:44 [facility]ABELCARLOSLil[facility] Patient complains of: Possible UTI and aggresive behavior History of Present Illness: TRA DESAI is a 77 year old female brought to the ED via EMS service with family complaining about possible UTI due to change in her behavior. Patient daughter at bedside reported that patient usually become more aggressive in her behaviour whenever she has UTI and she is very worried about her current behavior and request further evaluation. Family denied any associated fever, nausea, vomiting, diarrhea, or abdominal pain. Her initial evaluation in the ED was remarkable for pre-renal azotemia, anion gap metabolic acidosis with elevated lactic acid level. Her urinalysis with microscopy suggested possible UTI. ED physician contacted me and advised hospitalization for further evaluation and management. Her morbidities include hypertension, hyperlipidemia , CAD, Diabetes Mellitus type 2, chronic Atrial Fibrillation, Depression and osteoarthritis. 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 Psychiatric Medical History: Reports: Depression Hematology: Denies: Anemia, Sickle Cell Disease Past Surgical History Past Surgical History: Reports: Cholecystectomy, Hysterectomy Denies: Amputation, Mastectomy, Pacemaker Social History Smoking Status: Never Smoker Frequency of Alcohol Use: None Hx Recreational Drug Use: No Drugs: None Hx Prescription Drug Abuse: No Family History Family History: Reviewed & Not Pertinent Parental Family History Reviewed: Yes Children Family History Reviewed: Yes Sibling(s) Family History Reviewed.: Yes Medication/Allergy Home Medications: Amlodipine Besylate [Norvasc 5 mg Tablet] 5 mg PO DAILY 04/27/18 Aspirin [Ecotrin 81 mg EC Tablet] 81 mg PO DAILY 04/27/18 Atenolol [Tenormin 100 mg Tablet] 100 mg PO DAILY 04/27/18 Atorvastatin Calcium [Lipitor 20 mg Tablet] 20 mg PO QHS 04/27/18 Cholecalciferol (Vitamin D3) [Vitamin D3 5000 unit Capsule] 5,000 unit PO DAILY 04/27/18 Diphenhydramine HCl [Benadryl 25 mg Capsule] 25 mg PO QHS 04/27/18 Levothyroxine Sodium [Synthroid 0.112 mg Tablet] 0.112 mg PO Q6AM 04/27/18 Losartan Potassium [Cozaar 100 mg Tablet] 100 mg PO DAILY 04/27/18 Magnesium Oxide [Mag-Ox 400 mg Tablet] 400 mg PO DAILY 04/27/18 Metformin HCl [Glucophage 500 mg Tablet] 1,000 mg PO BID 04/27/18 Potassium Chloride [Klor-Con 10 Meq Capsule ER] 10 meq PO BID 04/27/18 Sertraline HCl [Zoloft] 100 mg PO DAILY 04/27/18 Simethicone [Gas Relief 80] 160 mg PO DAILYP PRN 04/27/18 Allergies/Adverse Reactions: Penicillins Allergy (Severe, Verified 09/13/17 19:13) Anaphylaxis Review of Systems Constitutional: ABSENT: chills, fever(s), headache(s), weight gain, weight loss Eyes: ABSENT: visual disturbances Ears: ABSENT: hearing changes Nose, Mouth, and Throat: ABSENT: as per HPI, headache(s), mouth pain, sore throat, vertigo, other Cardiovascular: ABSENT: chest pain, dyspnea on exertion, edema, orthropnea, palpitations Respiratory: ABSENT: cough, hemoptysis Gastrointestinal: ABSENT: abdominal pain, constipation, diarrhea, hematemesis, hematochezia, nausea, vomiting Musculoskeletal: PRESENT: deformity - related to multiple joints involvement with arthritis Integumentary: ABSENT: rash, wounds Neurological: ABSENT: abnormal gait, abnormal speech, confusion, dizziness, focal weakness, syncope Psychiatric: PRESENT: depression Endocrine: ABSENT: cold intolerance, heat intolerance, polydipsia, polyuria Hematologic/Lymphatic: ABSENT: easy bleeding, easy bruising, lymphadenopathy Allergic/Immunologic: ABSENT: seasonal rhinorrhea Physical Exam Vital Signs: Temp Pulse Resp BP Pulse Ox 98.3 F 73 20 146/68 H 98 04/27/18 17:00 04/27/18 17:00 04/27/18 17:00 04/27/18 17:00 04/27/18 17:00 Intake & Output 04/26/18 04/27/18 04/28/18 06:59 06:59 06:59 Intake Total 1000 1236 Balance 1000 1236 Weight 48.8 kg General appearance: PRESENT: no acute distress, well-developed, well-nourished Head exam: PRESENT: atraumatic, normocephalic Eye exam: PRESENT: conjunctiva pink, EOMI, PERRLA. ABSENT: scleral icterus Ear exam: PRESENT: normal external ear exam Mouth exam: PRESENT: moist Neck exam: PRESENT: full ROM. ABSENT: carotid bruit, JVD, lymphadenopathy, thyromegaly Respiratory exam: PRESENT: clear to auscultation skyler, decreased breath sounds - at lung bases Cardiovascular exam: PRESENT: RRR. ABSENT: diastolic murmur, rubs, systolic murmur Vascular exam: PRESENT: normal capillary refill. ABSENT: pallor GI/Abdominal exam: PRESENT: distended, normal bowel sounds, soft. ABSENT: guarding, organolmegaly, rebound, tenderness Rectal exam: PRESENT: deferred Extremities exam: ABSENT: joint swelling Musculoskeletal exam: PRESENT: deformity Neurological exam: PRESENT: alert, awake, oriented to person, oriented to place , oriented to situation, CN II-XII grossly intact. ABSENT: oriented to time, motor sensory deficit Psychiatric exam: PRESENT: appropriate affect, normal mood. ABSENT: homicidal ideation, suicidal ideation Skin exam: PRESENT: dry, intact, warm. ABSENT: cyanosis, rash Results Laboratory Results: I reviewed her lab results on [employer] and contribute to my medical decision making in this case. 04/27/18 05:50 Lactic Acid 1.7 Assessment & Plan - Diagnosis (1) Lactic acid acidosis Is this a current diagnosis for this admission?: Yes Plan: Patient will remain on IV fluid support and IV antibiotic therapy for possible underlying infection. (2) Urinary tract infection Qualifiers: Urinary tract infection type: site unspecified Hematuria presence: without hematuria Qualified Code(s): N39.0 - Urinary tract infection, site not specified Is this a current diagnosis for this admission?: Yes Plan: Start on empiric antibiotic therapy pending culture findings based on her presentation and lab results findings. (3) Diabetes mellitus type 2 in nonobese Is this a current diagnosis for this admission?: Yes Plan: Maintain on sliding scale coverage with her pre-admission medications. (4) HTN (hypertension) Qualifiers: Hypertension type: essential hypertension Qualified Code(s): I10 - Essential (primary) hypertension Is this a current diagnosis for this admission?: Yes Plan: Continue on her preadmission medication management. (5) Hyperlipidemia associated with type 2 diabetes mellitus Plan: Continue on her preadmission medication management. (6) Hypothyroidism Qualifiers: Hypothyroidism type: acquired Qualified Code(s): E03.9 - Hypothyroidism, unspecified Is this a current diagnosis for this admission?: Yes Plan: Continue on her preadmission medication management. (7) Osteoarthritis involving multiple joints on both sides of body Is this a current diagnosis for this admission?: Yes Plan: Continue on her preadmission medication management. - Time Time Spent: 50 to 70 Minutes Medications reviewed and adjusted accordingly: Yes Anticipated discharge: Home with Homehealth Within: Other - Inpatient Certification Based on my medical assessment, after consideration of the patient's comorbidities, presenting symptoms, or acuity I expect that the services needed warrant INPATIENT care.: No I certify that my determination is in accordance with my understanding of Medicare's requirements for reasonable and necessary INPATIENT services [42 CFR 412.3e].: No Medical Necessity: Need Close Monitoring Due to Risk of Patient Decompensation, Need For IV Fluids, Need For Continuous Telemetry Monitoring, Need for IV Antibiotics, Risk of Complication if Not Cared For in Hospital Post Hospital Care: D/[employer] Documentation - Plan Summary Plan Summary: See admitting attending physician orders.
[2018-04-27] MEDS: ATORVASTATIN CALCIUM 20 MG TABLET PO SCH (21:42)
[2018-04-27] MEDS: LEVOFLOXACIN 500 MG/D5W RTU 500 MG/100 ML RTUPB IV SCH (21:43)
[2018-04-27] MEDS: DIPHENHYDRAMINE HCL 25 MG CAPSULE PO SCH (21:45)
[2018-04-28 05:50] LABS: ABSOLUTE EOSINOPHILS # (AUTO) 0.2 10^3/uL (0.0-0.6); ABSOLUTE LYMPHOCYTES (AUTO) 1.8 10^3/uL (0.5-4.7); ABSOLUTE MONOCYTES (AUTO) 0.8 10^3/uL (0.1-1.4); ABSOLUTE NEUT (AUTO) 4.9 10^3/uL (1.7-8.2); BASOPHILS % (AUTO) 0.6 % (0-2); EOSINOPHILS % (AUTO) 2.9 % (0-6); HEMATOCRIT 32.6 % (36.0-47.0); HEMOGLOBIN 11.4 g/dL (12.0-15.5); LYMPHOCYTES % (AUTO) 23.3 % (13-45); MEAN CORPUSCULAR HEMOGLOBIN 30.1 pg (27.0-33.4); MEAN CORPUSCULAR HGB CONC 34.9 g/dL (32.0-36.0); MEAN CORPUSCULAR VOLUME 86 fl (80-97); MONOCYTES % (AUTO) 10.2 % (3-13); PLATELET COUNT 214 10^3/uL (150-450); RED BLOOD COUNT 3.78 10^6/uL (3.72-5.28); RED CELL DISTRIBUTION WIDTH 13.9 % (11.5-14.0); TOTAL CELLS COUNTED % (AUTO) 100 %; WHITE BLOOD COUNT 7.8 10^3/uL (4.0-10.5)
[2018-04-28] MEDS: LEVOTHYROXINE SODIUM 0.112 MG TABLET PO SCH (05:50)
[2018-04-28] MEDS: NORMAL SALINE 1000 ML 1,000 ML IV PRN (05:50)
[2018-04-28 06:12] LABS: ALBUMIN 3.4 g/dL (3.5-5.0); ANION GAP 14 (5-19); BLOOD UREA NITROGEN 19 mg/dL (7-20); CARBON DIOXIDE 18 mmol/L (22-30); CHLORIDE 114 mmol/L (98-107); GLUCOSE 103 mg/dL (75-110); SODIUM 146.4 mmol/L (137-145); TOTAL PROTEIN 6.3 g/dL (6.3-8.2)
[2018-04-28 06:13] LABS: ALANINE AMINOTRANSFERASE 18 U/L (9-52); ALKALINE PHOSPHATASE 63 U/L (38-126); ASPARTATE AMINO TRANSFERASE 19 U/L (14-36); BILIRUBIN,DIRECT 0.1 mg/dL (0.0-0.4); BILIRUBIN,TOTAL 0.2 mg/dL (0.2-1.3); CALCIUM 8.9 mg/dL (8.4-10.2)
[2018-04-28] MEDS: POTASSIUM CHLORIDE 10 MEQ CAPSULE.ER PO SCH ×4 (08:12→17:01)
[2018-04-28] MEDS: AMLODIPINE BESYLATE 5 MG TABLET PO SCH (09:28)
[2018-04-28] MEDS: ATENOLOL 50 MG TABLET PO SCH (09:28)
[2018-04-28] MEDS: ASPIRIN 81 MG TABLET, ENT COATED PO SCH (09:28)
[2018-04-28] MEDS: SERTRALINE HCL 50 MG TABLET PO SCH (09:28)
[2018-04-28] MEDS: LOSARTAN POTASSIUM 50 MG TABLET PO SCH (09:28)
[2018-04-28] MEDS: CHOLECALCIFEROL (D3) 1,000 UNIT TABLET PO SCH (09:28)
[2018-04-28] MEDS: MAGNESIUM OXIDE 400 MG TABLET PO SCH (09:28)
[2018-04-28] MEDS: METFORMIN HCL 500 MG TABLET PO SCH ×2 (09:28→17:03)
[2018-04-28] MEDS ORDERED: POTASSI CL 20 MEQ/50 ML RIDER 40 MEQ/100 ML RTUPB IV ONE (11:00)
[2018-04-28] MEDS: POTASSIUM CHLORIDE 20 MEQ/50 ML RTU IV SCH ×2 (11:13→13:21)
[2018-04-28] MEDS ORDERED: MAGNESIUM SULFATE/D5W 2 GM/200 ML RTUPB IV ONE (13:24)
[2018-04-28] MEDS: MAGNESIUM SULFATE 1 GM/D5W 100 ML IV SCH ×2 (15:43→17:03)
--- NOTE | 2018-04-28 16:01 | PDOC PROGRESS REPORT ---
Subjective Progress Note for:: 04/28/18 Subjective:: Patient denied any fever or chills. No chest pain or difficulty with breathing. No nausea, vomiting, or abdominal pain but abdomen remain distended. P.O intake remain fair. She might have demonstrate confusional state due to significant hypomagnesemia as evident in her serum magnesium level as well as suspected bacterial infection with delirium. Reason For Visit: UTI Physical Exam Vital Signs: Temp Pulse Resp BP Pulse Ox 97.3 F 70 16 152/72 H 96 04/28/18 15:45 04/28/18 15:45 04/28/18 15:45 04/28/18 15:45 04/28/18 15:45 Intake & Output 04/27/18 04/28/18 04/29/18 06:59 06:59 06:59 Intake Total 1000 2928 800 Balance 1000 2928 800 Weight 48.8 kg General appearance: PRESENT: no acute distress Head exam: PRESENT: atraumatic, normocephalic Eye exam: PRESENT: conjunctiva pink, EOMI, PERRLA. ABSENT: scleral icterus Ear exam: PRESENT: normal external ear exam Mouth exam: PRESENT: moist Respiratory exam: PRESENT: clear to auscultation skyler, decreased breath sounds - at lung bases Cardiovascular exam: PRESENT: RRR. ABSENT: diastolic murmur, rubs, systolic murmur Vascular exam: PRESENT: normal capillary refill. ABSENT: pallor GI/Abdominal exam: PRESENT: distended, normal bowel sounds, soft. ABSENT: guarding, mass, organolmegaly, rebound, tenderness Extremities exam: ABSENT: pedal edema Musculoskeletal exam: PRESENT: deformity - related to multiple joints involvement with arthritis Neurological exam: PRESENT: alert, awake, oriented to person, oriented to place , oriented to situation, CN II-XII grossly intact. ABSENT: oriented to time, motor sensory deficit Psychiatric exam: PRESENT: appropriate affect, normal mood. ABSENT: homicidal ideation, suicidal ideation Skin exam: PRESENT: dry, intact, warm. ABSENT: cyanosis, rash Results Laboratory Results: 04/28/18 05:19 04/28/18 05:19 04/28/18 04/28/18 04/28/18 05:19 05:19 05:19 WBC 7.8 RBC 3.78 Hgb 11.4 L Hct 32.6 L MCV 86 MCH 30.1 MCHC 34.9 RDW 13.9 Plt Count 214 Seg Neutrophils % 63.0 Lymphocytes % 23.3 Monocytes % 10.2 Eosinophils % 2.9 Basophils % 0.6 Absolute Neutrophils 4.9 Absolute Lymphocytes 1.8 Absolute Monocytes 0.8 Absolute Eosinophils 0.2 Absolute Basophils 0.0 Sodium 146.4 H Potassium 3.0 L* Chloride 114 H Carbon Dioxide 18 L Anion Gap 14 BUN 19 Creatinine 0.61 Est GFR ( Amer) > 60 Est GFR (Non-Af Amer) > 60 Glucose 103 Calcium 8.9 Magnesium 0.8 L* Total Bilirubin 0.2 AST 19 ALT 18 Alkaline Phosphatase 63 Total Protein 6.3 Albumin 3.4 L Assessment & Plan - Diagnosis (1) Gram-negative bacterial infection Is this a current diagnosis for this admission?: Yes Plan: Maintain on IV Levofloxacin coverage. Consider transition to oral route tomorrow. (2) Lactic acid acidosis Is this a current diagnosis for this admission?: Yes Plan: Improved on IV fluid support and antibiotic therapy. (3) Urinary tract infection Qualifiers: Urinary tract infection type: site unspecified Hematuria presence: without hematuria Qualified Code(s): N39.0 - Urinary tract infection, site not specified Is this a current diagnosis for this admission?: Yes Plan: Continue IV Levofloxacin coverage. Follow up on blood and urine culture findings. (4) Diabetes mellitus type 2 in nonobese Is this a current diagnosis for this admission?: Yes Plan: Continue current medication management. (5) HTN (hypertension) Qualifiers: Hypertension type: essential hypertension Qualified Code(s): I10 - Essential (primary) hypertension Is this a current diagnosis for this admission?: Yes Plan: Continue current medication management. (6) Hyperlipidemia associated with type 2 diabetes mellitus Is this a current diagnosis for this admission?: Yes Plan: Continue current medication management. (7) Hypothyroidism Qualifiers: Hypothyroidism type: acquired Qualified Code(s): E03.9 - Hypothyroidism, unspecified Is this a current diagnosis for this admission?: Yes Plan: Continue current medication management. (8) Osteoarthritis involving multiple joints on both sides of body Is this a current diagnosis for this admission?: Yes (9) Hypokalemia due to inadequate potassium intake Is this a current diagnosis for this admission?: Yes Plan: Patient will receive replacement therapy. She was not able to swallow administered potassium chloride due to size. (10) Hypomagnesemia Is this a current diagnosis for this admission?: Yes Plan: Patient will receive replacement therapy. - Time Time Spent with patient: 25-34 minutes Medications reviewed and adjusted accordingly: Yes Anticipated discharge: Home with Homehealth Within: Other - Plan Summary Plan Summary: Continue current medication management. Obtain BMP, Mag, and CBC with diff in am.
[2018-04-28] MEDS: LEVOFLOXACIN 500 MG/D5W RTU 500 MG/100 ML RTUPB IV SCH (22:51)
[2018-04-28] MEDS: DIPHENHYDRAMINE HCL 25 MG CAPSULE PO SCH (22:59)
[2018-04-28] MEDS: ATORVASTATIN CALCIUM 20 MG TABLET PO SCH (23:00)
[2018-04-29] MEDS: NORMAL SALINE 1000 ML 1,000 ML IV PRN ×2 (01:51→12:11)
[2018-04-29] MEDS: LEVOTHYROXINE SODIUM 0.112 MG TABLET PO SCH (06:21)
[2018-04-29] MEDS: ATENOLOL 50 MG TABLET PO SCH (09:12)
[2018-04-29] MEDS: ASPIRIN 81 MG TABLET, ENT COATED PO SCH (09:13)
[2018-04-29] MEDS: METFORMIN HCL 500 MG TABLET PO SCH ×2 (09:13→17:45)
[2018-04-29] MEDS: MAGNESIUM OXIDE 400 MG TABLET PO SCH (09:13)
[2018-04-29] MEDS: SERTRALINE HCL 50 MG TABLET PO SCH (09:13)
[2018-04-29] MEDS: POTASSIUM CHLORIDE 10 MEQ CAPSULE.ER PO SCH ×2 (09:13→17:44)
[2018-04-29] MEDS: AMLODIPINE BESYLATE 5 MG TABLET PO SCH (09:14)
[2018-04-29] MEDS: CHOLECALCIFEROL (D3) 1,000 UNIT TABLET PO SCH (09:14)
[2018-04-29] MEDS: LOSARTAN POTASSIUM 50 MG TABLET PO SCH (09:15)
[2018-04-29 11:57] LABS: ANION GAP 16 (5-19); BLOOD UREA NITROGEN 12 mg/dL (7-20); CARBON DIOXIDE 16 mmol/L (22-30); CHLORIDE 115 mmol/L (98-107); GLUCOSE 140 mg/dL (75-110); SODIUM 146.7 mmol/L (137-145)
[2018-04-29 12:14] LABS: POTASSIUM 2.8 mmol/L (3.6-5.0)
[2018-04-29] MEDS: MAGNESIUM SULFATE 1 GM/D5W 100 ML IV SCH ×2 (12:34→14:50)
--- NOTE | 2018-04-29 15:13 | PDOC PROGRESS REPORT ---
Subjective Progress Note for:: 04/29/18 Subjective:: No chest pain or difficulty with breathing. No fever or chills. No nausea, vomiting, or abdominal pain. P.O intake remain a challenge. Her abdominal distention has worsen and concerning for possible electrolyte related ileus. Reason For Visit: UTI Physical Exam Vital Signs: Temp Pulse Resp BP Pulse Ox 98.3 F 72 16 155/68 H 96 04/29/18 11:56 04/29/18 14:00 04/29/18 11:56 04/29/18 11:56 04/29/18 11:56 Intake & Output 04/28/18 04/29/18 04/30/18 06:59 06:59 06:59 Intake Total 2928 5 1100 Balance 2928 5 1100 Weight 48.8 kg Physical Exam: General appearance: PRESENT: no acute distress Head exam: PRESENT: atraumatic, normocephalic Eye exam: PRESENT: conjunctiva pink, EOMI, PERRLA. ABSENT: scleral icterus Ear exam: PRESENT: normal external ear exam Mouth exam: PRESENT: moist Respiratory exam: PRESENT: clear to auscultation skyler, decreased breath sounds - at lung bases Cardiovascular exam: PRESENT: RRR. ABSENT: diastolic murmur, rubs, systolic murmur Vascular exam: PRESENT: normal capillary refill. ABSENT: pallor GI/Abdominal exam: PRESENT: increase distention, normal bowel sounds, soft. ABSENT: guarding, mass, rebound, tenderness Extremities exam: ABSENT: pedal edema Musculoskeletal exam: PRESENT: deformity - related to multiple joints involvement with arthritis Neurological exam: PRESENT: alert, awake, oriented to person, oriented to place , oriented to situation, CN II-XII grossly intact. ABSENT: oriented to time, motor sensory deficit Psychiatric exam: PRESENT: appropriate affect, normal mood. ABSENT: homicidal ideation, suicidal ideation Skin exam: PRESENT: dry, intact, warm. ABSENT: cyanosis, rash Results Laboratory Results: 04/28/18 05:19 04/29/18 11:07 04/29/18 11:07 Sodium 146.7 H Potassium 2.8 L* Chloride 115 H Carbon Dioxide 16 L Anion Gap 16 BUN 12 Creatinine 0.60 Est GFR ( Amer) > 60 Est GFR (Non-Af Amer) > 60 Glucose 140 H Calcium 9.0 Magnesium 1.2 L* Assessment & Plan - Diagnosis (1) E. coli UTI (urinary tract infection) Is this a current diagnosis for this admission?: Yes Plan: D/C IV Levofloxacin. Continue antibiotic coverage with oral Levofloxacin based on culture & sensitivity report. (2) Hypokalemia due to inadequate potassium intake Is this a current diagnosis for this admission?: Yes Plan: Despite efforts at replacement she continue to demonstrate severe hypokalemia. She will receive replacement therapy with potassium infusion today. I will change her admission status to full admission due to concern about her electrolyte derangement and possible ileus. (3) Hypomagnesemia Is this a current diagnosis for this admission?: Yes Plan: Her severe hypomagnesmia persist despite attempt at replacement yesterday. Her severe hypomagnesemia can explain her confusional state. We will continue to replace via IV infusion. I will change her admission status to full admission due to her persistent electrolyte derangement and confusional state. (4) Lactic acid acidosis Is this a current diagnosis for this admission?: Yes Plan: Improved on IV fluid support. Continue antibiotic therapy. (5) Diabetes mellitus type 2 in nonobese Is this a current diagnosis for this admission?: Yes Plan: Maintain on current medication management. (6) HTN (hypertension) Qualifiers: Hypertension type: essential hypertension Qualified Code(s): I10 - Essential (primary) hypertension Is this a current diagnosis for this admission?: Yes (7) Hyperlipidemia associated with type 2 diabetes mellitus Is this a current diagnosis for this admission?: Yes (8) Hypothyroidism Qualifiers: Hypothyroidism type: acquired Qualified Code(s): E03.9 - Hypothyroidism, unspecified Is this a current diagnosis for this admission?: Yes (9) Osteoarthritis involving multiple joints on both sides of body Is this a current diagnosis for this admission?: Yes - Time Time Spent with patient: 25-34 minutes Medications reviewed and adjusted accordingly: Yes Anticipated discharge: Home with Homehealth - Inpatient Certification Based on my medical assessment, after consideration of the patient's comorbidities, presenting symptoms, or acuity I expect that the services needed warrant INPATIENT care.: Yes I certify that my determination is in accordance with my understanding of Medicare's requirements for reasonable and necessary INPATIENT services [42 CFR 412.3e].: Yes Medical Necessity: Need Close Monitoring Due to Risk of Patient Decompensation, Need For IV Fluids, Need For Continuous Telemetry Monitoring, Need for IV Antibiotics, Risk of Complication if Not Cared For in Hospital Post Hospital Care: D/C Litigator Documentation - Plan Summary Plan Summary: See attending physician orders. Change status to full admission due to persistent severe electrolyte derangement, confusional state and E. Coli UTI.
[2018-04-29] MEDS: POTASSIUM CHLORIDE 20 MEQ/50 ML RTU IV SCH ×2 (16:41→20:45)
[2018-04-29] MEDS: ATORVASTATIN CALCIUM 20 MG TABLET PO SCH (22:00)
[2018-04-29] MEDS: DIPHENHYDRAMINE HCL 25 MG CAPSULE PO SCH (22:00)
[2018-04-29] MEDS: LEVOFLOXACIN 500 MG/D5W RTU 500 MG/100 ML RTUPB IV SCH (23:32)
[2018-04-30 01:19] LABS: ANION GAP 13 (5-19); BLOOD UREA NITROGEN 12 mg/dL (7-20); CALCIUM 8.5 mg/dL (8.4-10.2); CARBON DIOXIDE 15 mmol/L (22-30); CHLORIDE 117 mmol/L (98-107); GLUCOSE 137 mg/dL (75-110)
[2018-04-30 01:59] LABS: POTASSIUM 2.9 mmol/L (3.6-5.0)
[2018-04-30] MEDS: NORMAL SALINE 1000 ML 1,000 ML IV PRN ×2 (02:14→21:26)
[2018-04-30] MEDS: POTASSIUM CHLORIDE 20 MEQ/50 ML RTU IV SCH ×4 (02:15→20:09)
[2018-04-30] MEDS: LEVOTHYROXINE SODIUM 0.112 MG TABLET PO SCH (05:24)
[2018-04-30 08:50] LABS: ANION GAP 16 (5-19); BLOOD UREA NITROGEN 10 mg/dL (7-20); CALCIUM 8.7 mg/dL (8.4-10.2); CARBON DIOXIDE 15 mmol/L (22-30); CHLORIDE 117 mmol/L (98-107); GLUCOSE 136 mg/dL (75-110); SODIUM 147.6 mmol/L (137-145)
[2018-04-30] MEDS: LOSARTAN POTASSIUM 50 MG TABLET PO SCH (09:12)
[2018-04-30] MEDS: ASPIRIN 81 MG TABLET, ENT COATED PO SCH (09:13)
[2018-04-30] MEDS: METFORMIN HCL 500 MG TABLET PO SCH ×2 (09:13→17:35)
[2018-04-30] MEDS: MAGNESIUM OXIDE 400 MG TABLET PO SCH (09:13)
[2018-04-30] MEDS: ATENOLOL 50 MG TABLET PO SCH (09:13)
[2018-04-30] MEDS: CHOLECALCIFEROL (D3) 1,000 UNIT TABLET PO SCH (09:13)
[2018-04-30] MEDS: POTASSIUM CHLORIDE 10 MEQ CAPSULE.ER PO SCH ×2 (09:13→17:35)
[2018-04-30] MEDS: AMLODIPINE BESYLATE 5 MG TABLET PO SCH (09:13)
[2018-04-30] MEDS: SERTRALINE HCL 50 MG TABLET PO SCH (09:14)
[2018-04-30] MEDS ORDERED: MAGNESIUM SULFATE/D5W 1 GM/100 ML RTUPB IV ONE (09:30)
[2018-04-30] MEDS ORDERED: POTASSIUM CHLORIDE 20 MEQ/50 ML RTU IV SCH (10:30)
--- NOTE | 2018-04-30 15:06 | PDOC PROGRESS REPORT ---
Subjective Progress Note for:: 04/30/18 Subjective:: No chest pain or difficulty with breathing. No fever or chills. No nausea, vomiting, or abdominal pain. There is persistence of hypokalemia with improved level and resolved but low level of serum magnesium. Reason For Visit: SEVERE HYPOKALEMIA,SEVERE HYPOMAGNESEMIA WITH Physical Exam Vital Signs: Temp Pulse Resp BP Pulse Ox 98.3 F 71 18 153/79 H 97 04/30/18 13:58 04/30/18 13:58 04/30/18 13:58 04/30/18 13:58 04/30/18 13:58 Intake & Output 04/29/18 04/30/18 05/01/18 06:59 06:59 06:59 Intake Total 1803 100 Balance 1803 100 Physical Exam: General appearance: PRESENT: no acute distress Head exam: PRESENT: atraumatic, normocephalic Eye exam: PRESENT: conjunctiva pink, EOMI, PERRLA. ABSENT: scleral icterus Ear exam: PRESENT: normal external ear exam Mouth exam: PRESENT: moist Respiratory exam: PRESENT: clear to auscultation skyler, decreased breath sounds - at lung bases Cardiovascular exam: PRESENT: RRR. ABSENT: diastolic murmur, rubs, systolic murmur Vascular exam: ABSENT: pallor GI/Abdominal exam: PRESENT: increase distention, normal bowel sounds, soft. ABSENT: guarding, mass, rebound, tenderness Extremities exam: ABSENT: pedal edema Musculoskeletal exam: PRESENT: deformity - related to multiple joints involvement with arthritis Neurological exam: PRESENT: alert, awake, oriented to person, oriented to place , oriented to situation, CN II-XII grossly intact. ABSENT: oriented to time, motor sensory deficit Psychiatric exam: PRESENT: appropriate affect, normal mood. ABSENT: homicidal ideation, suicidal ideation Skin exam: PRESENT: dry, intact, warm. ABSENT: cyanosis, rash Results Laboratory Results: 04/30/18 08:13 04/30/18 04/30/18 00:52 08:13 Sodium 145.0 147.6 H Potassium 2.9 L* 3.0 L* Chloride 117 H 117 H Carbon Dioxide 15 L 15 L Anion Gap 13 16 BUN 12 10 Creatinine 0.61 0.61 Est GFR ( Amer) > 60 > 60 Est GFR (Non-Af Amer) > 60 > 60 Glucose 137 H 136 H Calcium 8.5 8.7 Magnesium 1.7 Assessment & Plan - Diagnosis (1) E. coli UTI (urinary tract infection) Is this a current diagnosis for this admission?: Yes (2) Hypokalemia due to inadequate potassium intake Is this a current diagnosis for this admission?: Yes (3) Hypomagnesemia Is this a current diagnosis for this admission?: Yes (4) Lactic acid acidosis Is this a current diagnosis for this admission?: Yes (5) Diabetes mellitus type 2 in nonobese Is this a current diagnosis for this admission?: Yes (6) HTN (hypertension) Qualifiers: Hypertension type: essential hypertension Qualified Code(s): I10 - Essential (primary) hypertension Is this a current diagnosis for this admission?: Yes (7) Hyperlipidemia associated with type 2 diabetes mellitus Is this a current diagnosis for this admission?: Yes (8) Hypothyroidism Qualifiers: Hypothyroidism type: acquired Qualified Code(s): E03.9 - Hypothyroidism, unspecified Is this a current diagnosis for this admission?: Yes (9) Osteoarthritis involving multiple joints on both sides of body Is this a current diagnosis for this admission?: Yes - Time Time Spent with patient: 25-34 minutes Medications reviewed and adjusted accordingly: Yes Anticipated discharge: Home with Homehealth Within: Other - Inpatient Certification Based on my medical assessment, after consideration of the patient's comorbidities, presenting symptoms, or acuity I expect that the services needed warrant INPATIENT care.: Yes I certify that my determination is in accordance with my understanding of Medicare's requirements for reasonable and necessary INPATIENT services [42 CFR 412.3e].: Yes Medical Necessity: Need Close Monitoring Due to Risk of Patient Decompensation, Need For IV Fluids, Need For Continuous Telemetry Monitoring, Risk of Complication if Not Cared For in Hospital Post Hospital Care: D/C Operator Assistant I Cementing Documentation - Plan Summary Plan Summary: Continue current medication management and she will receive potassium and magnesium IV infusion replacement. Obtain BMP and mag level in am. I discussed possible discharge home tomorrow with daughter at bedside.
[2018-04-30] MEDS: ATORVASTATIN CALCIUM 20 MG TABLET PO SCH (21:25)
[2018-04-30] MEDS: DIPHENHYDRAMINE HCL 25 MG CAPSULE PO SCH (21:25)
[2018-04-30] MEDS: LEVOFLOXACIN 500 MG/D5W RTU 500 MG/100 ML RTUPB IV SCH (21:26)
[2018-05-01] MEDS: LEVOTHYROXINE SODIUM 0.112 MG TABLET PO SCH (06:27)
[2018-05-01] MEDS: NORMAL SALINE 1000 ML 1,000 ML IV PRN (10:53)
[2018-05-01] MEDS: CHOLECALCIFEROL (D3) 1,000 UNIT TABLET PO SCH (10:58)
[2018-05-01] MEDS: MAGNESIUM OXIDE 400 MG TABLET PO SCH (10:59)
[2018-05-01] MEDS: ATENOLOL 50 MG TABLET PO SCH (10:59)
[2018-05-01] MEDS: LOSARTAN POTASSIUM 50 MG TABLET PO SCH (10:59)
[2018-05-01] MEDS: AMLODIPINE BESYLATE 5 MG TABLET PO SCH ×2 (10:59→21:50)
[2018-05-01] MEDS: POTASSIUM CHLORIDE 10 MEQ CAPSULE.ER PO SCH ×2 (11:00→17:40)
[2018-05-01] MEDS: SERTRALINE HCL 50 MG TABLET PO SCH (11:00)
[2018-05-01] MEDS: METFORMIN HCL 500 MG TABLET PO SCH ×2 (11:01→17:40)
[2018-05-01] MEDS: ASPIRIN 81 MG TABLET, ENT COATED PO SCH (11:01)
--- NOTE | 2018-05-01 12:22 | PDOC PROGRESS REPORT ---
Subjective Progress Note for:: 05/01/18 Subjective:: No chest pain or difficulty with breathing. No fever or chills. No nausea, vomiting, or abdominal pain. Abdominal distention is still a concern. She received IV potassium and magnesium infusion since last clinical evaluation. Reason For Visit: SEVERE HYPOKALEMIA,SEVERE HYPOMAGNESEMIA WITH Physical Exam Vital Signs: Temp Pulse Resp BP Pulse Ox 99.1 F 76 16 164/92 H 97 05/01/18 10:17 05/01/18 10:17 05/01/18 10:17 05/01/18 10:17 05/01/18 10:17 Intake & Output 04/30/18 05/01/18 05/02/18 06:59 06:59 06:59 Intake Total 1803 2257 1000 Balance 1803 2257 1000 Weight 48.2 kg Physical Exam: General appearance: PRESENT: no acute distress Head exam: PRESENT: atraumatic, normocephalic Eye exam: PRESENT: conjunctiva pink, EOMI, PERRLA. ABSENT: scleral icterus Ear exam: PRESENT: normal external ear exam Mouth exam: PRESENT: moist Respiratory exam: PRESENT: clear to auscultation skyler, decreased breath sounds - at lung bases Cardiovascular exam: PRESENT: RRR. ABSENT: diastolic murmur, rubs, systolic murmur Vascular exam: ABSENT: pallor GI/Abdominal exam: PRESENT: increase distention, normal bowel sounds, soft. ABSENT: guarding, mass, rebound, tenderness Extremities exam: ABSENT: pedal edema Musculoskeletal exam: PRESENT: deformity - related to multiple joints involvement with arthritis Neurological exam: PRESENT: alert, awake, oriented to person, oriented to place , oriented to situation, CN II-XII grossly intact. ABSENT: oriented to time, motor sensory deficit Psychiatric exam: PRESENT: appropriate affect, normal mood. ABSENT: homicidal ideation, suicidal ideation Skin exam: PRESENT: dry, intact, warm. ABSENT: cyanosis, rash Results Laboratory Results: 04/30/18 08:13 Assessment & Plan - Diagnosis (1) E. coli UTI (urinary tract infection) Is this a current diagnosis for this admission?: Yes (2) Hypokalemia due to inadequate potassium intake Is this a current diagnosis for this admission?: Yes (3) Hypomagnesemia Is this a current diagnosis for this admission?: Yes (4) Lactic acid acidosis Is this a current diagnosis for this admission?: Yes (5) Diabetes mellitus type 2 in nonobese Is this a current diagnosis for this admission?: Yes (6) HTN (hypertension) Qualifiers: Hypertension type: essential hypertension Qualified Code(s): I10 - Essential (primary) hypertension Is this a current diagnosis for this admission?: Yes (7) Hyperlipidemia associated with type 2 diabetes mellitus Is this a current diagnosis for this admission?: Yes (8) Hypothyroidism Qualifiers: Hypothyroidism type: acquired Qualified Code(s): E03.9 - Hypothyroidism, unspecified Is this a current diagnosis for this admission?: Yes (9) Osteoarthritis involving multiple joints on both sides of body Is this a current diagnosis for this admission?: Yes - Time Time Spent with patient: 25-34 minutes Medications reviewed and adjusted accordingly: Yes Anticipated discharge: Home with Homehealth Within: Other - Inpatient Certification Based on my medical assessment, after consideration of the patient's comorbidities, presenting symptoms, or acuity I expect that the services needed warrant INPATIENT care.: Yes I certify that my determination is in accordance with my understanding of Medicare's requirements for reasonable and necessary INPATIENT services [42 CFR 412.3e].: Yes Medical Necessity: Need Close Monitoring Due to Risk of Patient Decompensation, Need For IV Fluids, Need For Continuous Telemetry Monitoring, Need for IV Antibiotics, Risk of Complication if Not Cared For in Hospital Post Hospital Care: D/C Shot Polisher Documentation - Plan Summary Plan Summary: D/C IV Levofloxacin. Star on oral Levofloxacin 250 mg p.o daily. Increase Amlodipine to 5 mg p.o [id number]. Decrease IV fluid rate to 30 mL/hour KVO. Obtain BMP and Mag level.
[2018-05-01] MEDS: LEVOFLOXACIN 250 MG TABLET PO SCH (13:57)
[2018-05-01 14:06] LABS: ANION GAP 15 (5-19); BLOOD UREA NITROGEN 8 mg/dL (7-20); CALCIUM 9.3 mg/dL (8.4-10.2); CARBON DIOXIDE 16 mmol/L (22-30); CHLORIDE 115 mmol/L (98-107); GLUCOSE 142 mg/dL (75-110); POTASSIUM 3.1 mmol/L (3.6-5.0); SODIUM 146.1 mmol/L (137-145)
[2018-05-01] MEDS ORDERED: ACETAMINOPHEN 325 MG TABLET PO PRN (14:32)
[2018-05-01] MEDS: DIPHENHYDRAMINE HCL 25 MG CAPSULE PO SCH (21:50)
[2018-05-01] MEDS: ATORVASTATIN CALCIUM 20 MG TABLET PO SCH (21:50)
[2018-05-02 05:22] LABS: ABSOLUTE BASOPHILS # (AUTO) 0.1 10^3/uL (0.0-0.2); ABSOLUTE EOSINOPHILS # (AUTO) 0.2 10^3/uL (0.0-0.6); ABSOLUTE LYMPHOCYTES (AUTO) 2.1 10^3/uL (0.5-4.7); ABSOLUTE MONOCYTES (AUTO) 1.2 10^3/uL (0.1-1.4); BASOPHILS % (AUTO) 0.7 % (0-2); EOSINOPHILS % (AUTO) 1.1 % (0-6); HEMATOCRIT 36.6 % (36.0-47.0); HEMOGLOBIN 12.5 g/dL (12.0-15.5); LYMPHOCYTES % (AUTO) 14.8 % (13-45); MEAN CORPUSCULAR HEMOGLOBIN 29.2 pg (27.0-33.4); MEAN CORPUSCULAR HGB CONC 34.1 g/dL (32.0-36.0); MEAN CORPUSCULAR VOLUME 86 fl (80-97); MONOCYTES % (AUTO) 8.2 % (3-13); PLATELET COUNT 357 10^3/uL (150-450); RED BLOOD COUNT 4.27 10^6/uL (3.72-5.28); RED CELL DISTRIBUTION WIDTH 14.2 % (11.5-14.0); SEGMENTED NEUTROPHILS % (AUTO) 75.2 % (42-78); TOTAL CELLS COUNTED % (AUTO) 100 %; WHITE BLOOD COUNT 14.6 10^3/uL (4.0-10.5)
[2018-05-02] MEDS: LEVOTHYROXINE SODIUM 0.112 MG TABLET PO SCH (05:26)
[2018-05-02 05:49] LABS: ANION GAP 18 (5-19); BLOOD UREA NITROGEN 12 mg/dL (7-20); CALCIUM 9.3 mg/dL (8.4-10.2); CARBON DIOXIDE 15 mmol/L (22-30); CHLORIDE 116 mmol/L (98-107); GLUCOSE 132 mg/dL (75-110); SODIUM 148.5 mmol/L (137-145)
[2018-05-02 06:30] LABS: POTASSIUM 2.9 mmol/L (3.6-5.0)
--- NOTE | 2018-05-02 07:43 | PDOC PROGRESS REPORT ---
Subjective Progress Note for:: 05/02/18 Subjective:: Patient abdominal distention persist. No diarrhea. No nausea or vomiting. There is persistent severe electrolyte derangement with hypokalemia and hypomagnesemia. Daughter continue to report period of confusion in patient's interactions. No chest pain or difficulty with breathing. Reason For Visit: SEVERE HYPOKALEMIA,SEVERE HYPOMAGNESEMIA WITH Physical Exam Vital Signs: Temp Pulse Resp BP Pulse Ox 99.0 F 76 16 173/78 H 95 05/02/18 03:44 05/02/18 03:44 05/02/18 03:44 05/02/18 03:44 05/02/18 03:44 Intake & Output 05/01/18 05/02/18 05/03/18 06:59 06:59 06:59 Intake Total 2257 3316 Balance 2257 3316 Weight 48.2 kg 53.4 kg Physical Exam: General appearance: PRESENT: no acute distress Head exam: PRESENT: atraumatic, normocephalic Eye exam: PRESENT: conjunctiva pink, EOMI, PERRLA. ABSENT: scleral icterus Ear exam: PRESENT: normal external ear exam Mouth exam: PRESENT: moist Respiratory exam: PRESENT: clear to auscultation skyler, decreased breath sounds - at lung bases Cardiovascular exam: PRESENT: RRR. ABSENT: diastolic murmur, rubs, systolic murmur Vascular exam: ABSENT: pallor GI/Abdominal exam: PRESENT: increase distention, normal bowel sounds, soft. ABSENT: guarding, mass, rebound, tenderness Extremities exam: ABSENT: pedal edema Musculoskeletal exam: PRESENT: deformity - related to multiple joints involvement with arthritis Neurological exam: PRESENT: alert, awake, oriented to person, oriented to place , oriented to situation, CN II-XII grossly intact. ABSENT: oriented to time, motor sensory deficit Psychiatric exam: PRESENT: appropriate affect, normal mood. ABSENT: homicidal ideation, suicidal ideation Skin exam: PRESENT: dry, warm, gluteal fold region with unstage small pressure ulcer. ABSENT: cyanosis, rash Results Laboratory Results: 05/02/18 04:39 05/02/18 04:39 05/01/18 05/02/18 05/02/18 13:15 04:39 04:39 WBC 14.6 H RBC 4.27 Hgb 12.5 Hct 36.6 MCV 86 MCH 29.2 MCHC 34.1 RDW 14.2 H Plt Count 357 Seg Neutrophils % 75.2 Lymphocytes % 14.8 Monocytes % 8.2 Eosinophils % 1.1 Basophils % 0.7 Absolute Neutrophils 11.0 H Absolute Lymphocytes 2.1 Absolute Monocytes 1.2 Absolute Eosinophils 0.2 Absolute Basophils 0.1 Sodium 146.1 H 148.5 H Potassium 3.1 L 2.9 L* Chloride 115 H 116 H Carbon Dioxide 16 L 15 L Anion Gap 15 18 BUN 8 12 Creatinine 0.55 0.63 Est GFR ( Amer) > 60 > 60 Est GFR (Non-Af Amer) > 60 > 60 Glucose 142 H 132 H Calcium 9.3 9.3 Magnesium 1.3 L 05/02/18 04:39 WBC RBC Hgb Hct MCV MCH MCHC RDW Plt Count Seg Neutrophils % Lymphocytes % Monocytes % Eosinophils % Basophils % Absolute Neutrophils Absolute Lymphocytes Absolute Monocytes Absolute Eosinophils Absolute Basophils Sodium Potassium Chloride Carbon Dioxide Anion Gap BUN Creatinine Est GFR ( Amer) Est GFR (Non-Af Amer) Glucose Calcium Magnesium 1.2 L* Assessment & Plan - Diagnosis (1) E. coli UTI (urinary tract infection) Is this a current diagnosis for this admission?: Yes (2) Hypokalemia due to inadequate potassium intake Is this a current diagnosis for this admission?: Yes (3) Hypomagnesemia Is this a current diagnosis for this admission?: Yes (4) Lactic acid acidosis Is this a current diagnosis for this admission?: Yes (5) Diabetes mellitus type 2 in nonobese Is this a current diagnosis for this admission?: Yes (6) HTN (hypertension) Qualifiers: Hypertension type: essential hypertension Qualified Code(s): I10 - Essential (primary) hypertension Is this a current diagnosis for this admission?: Yes (7) Hyperlipidemia associated with type 2 diabetes mellitus Is this a current diagnosis for this admission?: Yes (8) Hypothyroidism Qualifiers: Hypothyroidism type: acquired Qualified Code(s): E03.9 - Hypothyroidism, unspecified Is this a current diagnosis for this admission?: Yes (9) Osteoarthritis involving multiple joints on both sides of body Is this a current diagnosis for this admission?: Yes - Time Time Spent with patient: 25-34 minutes Medications reviewed and adjusted accordingly: Yes Anticipated discharge: Home with Homehealth Within: Other - Inpatient Certification Based on my medical assessment, after consideration of the patient's comorbidities, presenting symptoms, or acuity I expect that the services needed warrant INPATIENT care.: Yes I certify that my determination is in accordance with my understanding of Medicare's requirements for reasonable and necessary INPATIENT services [42 CFR 412.3e].: Yes Medical Necessity: Need Close Monitoring Due to Risk of Patient Decompensation, Need For IV Fluids, Need For Continuous Telemetry Monitoring, Risk of Complication if Not Cared For in Hospital Post Hospital Care: D/C Picking Supervisor Documentation - Plan Summary Plan Summary: Patient will receive potassium and magnesium replacement with increase adjustment in her daily potassium and magnesium dosage. Obtain timed BMP and Mag level at 18:00hr. Continue all other current medication management.
[2018-05-02] MEDS: MAGNESIUM SULFATE/D5W 1 GM/100 ML RTUPB IV SCH ×2 (08:14→09:19)
[2018-05-02] MEDS: CHOLECALCIFEROL (D3) 1,000 UNIT TABLET PO SCH (09:17)
[2018-05-02] MEDS: SERTRALINE HCL 50 MG TABLET PO SCH (09:17)
[2018-05-02] MEDS: METFORMIN HCL 500 MG TABLET PO SCH ×2 (09:18→18:09)
[2018-05-02] MEDS: LOSARTAN POTASSIUM 50 MG TABLET PO SCH (09:18)
[2018-05-02] MEDS: POTASSIUM CHLORIDE 10 MEQ CAPSULE.ER PO SCH ×4 (09:18→18:10)
[2018-05-02] MEDS: MAGNESIUM OXIDE 400 MG TABLET PO SCH ×2 (09:18→18:08)
[2018-05-02] MEDS: ASPIRIN 81 MG TABLET, ENT COATED PO SCH (09:18)
[2018-05-02] MEDS: AMLODIPINE BESYLATE 5 MG TABLET PO SCH ×2 (09:18→22:16)
[2018-05-02] MEDS: ATENOLOL 50 MG TABLET PO SCH (09:31)
[2018-05-02] MEDS: LEVOFLOXACIN 250 MG TABLET PO SCH (09:31)
[2018-05-02] MEDS: POTASSI CL 20 MEQ/50 ML RIDER 20 MEQ/50 ML RTUPB IV SCH ×3 (10:26→15:57)
[2018-05-02 18:43] LABS: ANION GAP 14 (5-19); BLOOD UREA NITROGEN 11 mg/dL (7-20); CALCIUM 8.9 mg/dL (8.4-10.2); CARBON DIOXIDE 18 mmol/L (22-30); CHLORIDE 116 mmol/L (98-107); GLUCOSE 151 mg/dL (75-110); POTASSIUM 3.3 mmol/L (3.6-5.0); SODIUM 147.5 mmol/L (137-145)
[2018-05-02] MEDS: POTASSIUM CHLORIDE 20 MEQ/50 ML RTU IV SCH ×2 (20:12→22:15)
[2018-05-02] MEDS: ATORVASTATIN CALCIUM 20 MG TABLET PO SCH (22:16)
[2018-05-02] MEDS: DIPHENHYDRAMINE HCL 25 MG CAPSULE PO SCH (22:16)
[2018-05-03 06:36] LABS: ABSOLUTE BASOPHILS # (AUTO) 0.1 10^3/uL (0.0-0.2); ABSOLUTE EOSINOPHILS # (AUTO) 0.1 10^3/uL (0.0-0.6); ABSOLUTE LYMPHOCYTES (AUTO) 2.2 10^3/uL (0.5-4.7); ABSOLUTE MONOCYTES (AUTO) 0.9 10^3/uL (0.1-1.4); ABSOLUTE NEUT (AUTO) 9.9 10^3/uL (1.7-8.2); BASOPHILS % (AUTO) 0.4 % (0-2); EOSINOPHILS % (AUTO) 0.6 % (0-6); HEMATOCRIT 35.8 % (36.0-47.0); HEMOGLOBIN 12.3 g/dL (12.0-15.5); LYMPHOCYTES % (AUTO) 16.4 % (13-45); MEAN CORPUSCULAR HEMOGLOBIN 29.5 pg (27.0-33.4); MEAN CORPUSCULAR HGB CONC 34.3 g/dL (32.0-36.0); MEAN CORPUSCULAR VOLUME 86 fl (80-97); MONOCYTES % (AUTO) 7.2 % (3-13); PLATELET COUNT 372 10^3/uL (150-450); RED BLOOD COUNT 4.15 10^6/uL (3.72-5.28); RED CELL DISTRIBUTION WIDTH 14.4 % (11.5-14.0); SEGMENTED NEUTROPHILS % (AUTO) 75.4 % (42-78); TOTAL CELLS COUNTED % (AUTO) 100 %; WHITE BLOOD COUNT 13.1 10^3/uL (4.0-10.5)
[2018-05-03] MEDS: LEVOTHYROXINE SODIUM 0.112 MG TABLET PO SCH (06:50)
[2018-05-03 07:14] LABS: ANION GAP 13 (5-19); BLOOD UREA NITROGEN 12 mg/dL (7-20); CALCIUM 9.2 mg/dL (8.4-10.2); CARBON DIOXIDE 17 mmol/L (22-30); CHLORIDE 118 mmol/L (98-107); GLUCOSE 140 mg/dL (75-110); POTASSIUM 3.3 mmol/L (3.6-5.0); SODIUM 148.1 mmol/L (137-145)
[2018-05-03] MEDS: MAGNESIUM SULFATE/D5W 1 GM/100 ML RTUPB IV SCH ×2 (08:55→09:58)
[2018-05-03] MEDS: POTASSIUM CHLORIDE 10 MEQ CAPSULE.ER PO SCH ×2 (09:00→17:22)
[2018-05-03] MEDS: ATENOLOL 50 MG TABLET PO SCH (09:00)
[2018-05-03] MEDS: ASPIRIN 81 MG TABLET, ENT COATED PO SCH (09:01)
[2018-05-03] MEDS: LEVOFLOXACIN 250 MG TABLET PO SCH (09:01)
[2018-05-03] MEDS: MAGNESIUM OXIDE 400 MG TABLET PO SCH ×2 (09:01→17:22)
[2018-05-03] MEDS: LOSARTAN POTASSIUM 50 MG TABLET PO SCH (09:01)
[2018-05-03] MEDS: AMLODIPINE BESYLATE 5 MG TABLET PO SCH ×2 (09:02→22:32)
[2018-05-03] MEDS: METFORMIN HCL 500 MG TABLET PO SCH ×2 (09:02→17:22)
[2018-05-03] MEDS: SERTRALINE HCL 50 MG TABLET PO SCH (09:02)
[2018-05-03] MEDS: CHOLECALCIFEROL (D3) 1,000 UNIT TABLET PO SCH (09:06)
[2018-05-03] MEDS: POTASSI CL 20 MEQ/50 ML RIDER 20 MEQ/50 ML RTUPB IV SCH ×3 (09:59→16:25)
[2018-05-03 19:32] LABS: ANION GAP 15 (5-19); BLOOD UREA NITROGEN 14 mg/dL (7-20); CALCIUM 9.8 mg/dL (8.4-10.2); CARBON DIOXIDE 15 mmol/L (22-30); CHLORIDE 117 mmol/L (98-107); GLUCOSE 209 mg/dL (75-110); POTASSIUM 3.9 mmol/L (3.6-5.0); SODIUM 146.9 mmol/L (137-145)
--- NOTE | 2018-05-03 20:50 | PDOC DISCHARGE SUMMARY ---
General - Admit/Disc Date/PCP Admission Date/Primary Care Provider: 04/29/18 15:13 MAGDA KAMARA Discharge Date: 05/03/18 - Discharge Diagnosis (1) E. coli UTI (urinary tract infection) Is this a current diagnosis for this admission?: Yes (2) Hypokalemia due to inadequate potassium intake Is this a current diagnosis for this admission?: Yes (3) Hypomagnesemia Is this a current diagnosis for this admission?: Yes (4) Lactic acid acidosis Is this a current diagnosis for this admission?: Yes (5) Diabetes mellitus type 2 in nonobese Is this a current diagnosis for this admission?: Yes (6) HTN (hypertension) Is this a current diagnosis for this admission?: Yes (7) Hyperlipidemia associated with type 2 diabetes mellitus Is this a current diagnosis for this admission?: Yes (8) Hypothyroidism Is this a current diagnosis for this admission?: Yes (9) Osteoarthritis involving multiple joints on both sides of body Is this a current diagnosis for this admission?: Yes - Additional Information Prescriptions: Levofloxacin [Levaquin 250 mg Tablet] 250 mg PO DAILY #5 tablet Magnesium Oxide [Mag-Ox 400 mg Tablet] 400 mg PO TID #90 tablet Potassium Chloride [Klor-Con 10 Meq Capsule ER] 20 meq PO TID #180 capsule.er Home Medications: Amlodipine Besylate [Norvasc 5 mg Tablet] 5 mg PO DAILY 04/27/18 Aspirin [Ecotrin 81 mg EC Tablet] 81 mg PO DAILY 04/27/18 Atenolol [Tenormin 100 mg Tablet] 100 mg PO DAILY 04/27/18 Atorvastatin Calcium [Lipitor 20 mg Tablet] 20 mg PO QHS 04/27/18 Cholecalciferol (Vitamin D3) [Vitamin D3 5000 unit Capsule] 5,000 unit PO DAILY 04/27/18 Diphenhydramine HCl [Benadryl 25 mg Capsule] 25 mg PO QHS 04/27/18 Levothyroxine Sodium [Synthroid 0.112 mg Tablet] 0.112 mg PO Q6AM 04/27/18 Losartan Potassium [Cozaar 100 mg Tablet] 100 mg PO DAILY 04/27/18 Metformin HCl [Glucophage 500 mg Tablet] 1,000 mg PO BID 04/27/18 Sertraline HCl [Zoloft] 100 mg PO DAILY 11/08/18 Simethicone [Gas Relief 80] 160 mg PO DAILYP PRN 04/27/18 Levofloxacin [Levaquin 250 mg Tablet] 250 mg PO DAILY #5 tablet 05/03/18 Magnesium Oxide [Mag-Ox 400 mg Tablet] 400 mg PO TID #90 tablet 05/03/18 Potassium Chloride [Klor-Con 10 Meq Capsule ER] 20 meq PO TID #180 capsule.er History of Present Illness Patient complains of: Change in mental status History of Present Illness: TRA DESAI is a 77 year old female brought to the ED via EMS service with family complaining about possible UTI due to change in her behavior. Patient daughter at bedside reported that patient usually become more aggressive in her behaviour whenever she has UTI and she is very worried about her current behavior and request further evaluation. Family denied any associated fever, nausea, vomiting, diarrhea, or abdominal pain. Her initial evaluation in the ED was remarkable for pre-renal azotemia, anion gap metabolic acidosis with elevated lactic acid level. Her urinalysis with microscopy suggested possible UTI. ED physician contacted me and advised hospitalization for further evaluation and management. Her morbidities include hypertension, hyperlipidemia , CAD, Diabetes Mellitus type 2, chronic Atrial Fibrillation, Depression and osteoarthritis. Hospital Course Hospital Course: Patient mental status did improved with treatment of her underlying UTI which was confirmed by urine culture growth of E. coli sensitive to levofloxacin. She will continue on same for 5 more days. Blood culture was no growth x 5 days. She demonstrated azotemia upon arrival in the ED and remain on IV fluid hydration with improvement. Her hospital stay was further compounded with severe hypokalemia and hypomagnesemia. The latter could be contributory to her alter mental status. she will be discharged home with adjustment in her potassium and Magnesium supplementation dosage to 20 mEq p.o tid and 400 mg po tid until follow up in the office. She will follow with me in the office as instructed upon discharge. Physical Exam Vital Signs: Temp Pulse Resp BP Pulse Ox 99.2 F 75 16 137/66 H 98 05/03/18 13:16 05/03/18 14:00 05/03/18 13:16 05/03/18 13:16 05/03/18 13:16 Intake & Output 05/02/18 05/03/18 05/04/18 06:59 06:59 06:59 Intake Total 3316 660 350 Balance 3316 660 350 Weight 53.4 kg 53.4 kg Physical Exam: General appearance: PRESENT: no acute distress Head exam: PRESENT: atraumatic, normocephalic Eye exam: PRESENT: conjunctiva pink, EOMI, PERRLA. ABSENT: sclera icterus Ear exam: PRESENT: normal external ear exam Mouth exam: PRESENT: moist Respiratory exam: PRESENT: clear to auscultation skyler, decreased breath sounds - at lung bases Cardiovascular exam: PRESENT: RRR. ABSENT: diastolic murmur, rubs, systolic murmur Vascular exam: ABSENT: pallor GI/Abdominal exam: PRESENT: increase distention, normal bowel sounds, soft. ABSENT: guarding, mass, rebound, tenderness Extremities exam: ABSENT: pedal edema Musculoskeletal exam: PRESENT: deformity - related to multiple joints involvement with arthritis Neurological exam: PRESENT: alert, awake, oriented to person, oriented to place , oriented to situation, CN II-XII grossly intact. ABSENT: oriented to time, motor sensory deficit Psychiatric exam: PRESENT: appropriate affect, normal mood. ABSENT: homicidal ideation, suicidal ideation Skin exam: PRESENT: dry, warm, improving sacral region pressure ulcer. ABSENT: cyanosis, rash Results Laboratory Results: 05/03/18 04:51 05/03/18 18:46 05/02/18 05/03/18 05/03/18 18:12 04:51 04:51 WBC 13.1 H RBC 4.15 Hgb 12.3 Hct 35.8 L MCV 86 MCH 29.5 MCHC 34.3 RDW 14.4 H Plt Count 372 Seg Neutrophils % 75.4 Lymphocytes % 16.4 Monocytes % 7.2 Eosinophils % 0.6 Basophils % 0.4 Absolute Neutrophils 9.9 H Absolute Lymphocytes 2.2 Absolute Monocytes 0.9 Absolute Eosinophils 0.1 Absolute Basophils 0.1 Sodium 148.1 H Potassium 3.3 L Chloride 118 H Carbon Dioxide 17 L Anion Gap 13 BUN 12 Creatinine 0.64 Est GFR ( Amer) > 60 Est GFR (Non-Af Amer) > 60 Glucose 140 H Calcium 9.2 Magnesium 1.7 1.5 L 05/03/18 05/03/18 18:46 18:46 WBC RBC Hgb Hct MCV MCH MCHC RDW Plt Count Seg Neutrophils % Lymphocytes % Monocytes % Eosinophils % Basophils % Absolute Neutrophils Absolute Lymphocytes Absolute Monocytes Absolute Eosinophils Absolute Basophils Sodium 146.9 H Potassium 3.9 Chloride 117 H Carbon Dioxide 15 L Anion Gap 15 BUN 14 Creatinine 0.65 Est GFR ( Amer) > 60 Est GFR (Non-Af Amer) > 60 Glucose 209 H Calcium 9.8 Magnesium 2.0 Qualifiers - * PATIENT BEING DISCHARGED WITH ANY OF THE FOLLOWING DIAGNOSIS: No Plan Discharge Plan: Discharge home today and follow up in the office as instructed upon discharge.
[2018-05-03] MEDS: ATORVASTATIN CALCIUM 20 MG TABLET PO SCH (22:33)
[2018-05-03] MEDS: DIPHENHYDRAMINE HCL 25 MG CAPSULE PO SCH (22:33)
[2018-05-04] MEDS: NORMAL SALINE 1000 ML 1,000 ML IV PRN ×2 (01:19→23:26)
[2018-05-04] MEDS: LEVOTHYROXINE SODIUM 0.112 MG TABLET PO SCH (05:48)
[2018-05-04 13:33] LABS: ABSOLUTE BASOPHILS # (AUTO) 0.1 10^3/uL (0.0-0.2); ABSOLUTE EOSINOPHILS # (AUTO) 0.1 10^3/uL (0.0-0.6); ABSOLUTE LYMPHOCYTES (AUTO) 2.2 10^3/uL (0.5-4.7); ABSOLUTE MONOCYTES (AUTO) 1.1 10^3/uL (0.1-1.4); HEMATOCRIT 35.4 % (36.0-47.0); HEMOGLOBIN 12.1 g/dL (12.0-15.5); LYMPHOCYTES % (AUTO) 16.4 % (13-45); MEAN CORPUSCULAR HEMOGLOBIN 29.3 pg (27.0-33.4); MEAN CORPUSCULAR HGB CONC 34.1 g/dL (32.0-36.0); MEAN CORPUSCULAR VOLUME 86 fl (80-97); MONOCYTES % (AUTO) 7.9 % (3-13); PLATELET COUNT 359 10^3/uL (150-450); RED BLOOD COUNT 4.12 10^6/uL (3.72-5.28); RED CELL DISTRIBUTION WIDTH 14.9 % (11.5-14.0); SEGMENTED NEUTROPHILS % (AUTO) 73.7 % (42-78); TOTAL CELLS COUNTED % (AUTO) 100 %; WHITE BLOOD COUNT 13.5 10^3/uL (4.0-10.5)
[2018-05-04 13:48] LABS: ALANINE AMINOTRANSFERASE 25 U/L (9-52); ALBUMIN 3.4 g/dL (3.5-5.0); ALKALINE PHOSPHATASE 76 U/L (38-126); ANION GAP 13 (5-19); ASPARTATE AMINO TRANSFERASE 24 U/L (14-36); BILIRUBIN,DIRECT 0.2 mg/dL (0.0-0.4); BILIRUBIN,TOTAL 0.4 mg/dL (0.2-1.3); BLOOD UREA NITROGEN 12 mg/dL (7-20); CALCIUM 9.2 mg/dL (8.4-10.2); CARBON DIOXIDE 18 mmol/L (22-30); CHLORIDE 117 mmol/L (98-107); GLUCOSE 149 mg/dL (75-110); SODIUM 148.1 mmol/L (137-145); TOTAL PROTEIN 6.3 g/dL (6.3-8.2)
[2018-05-04 13:55] LABS: POTASSIUM 2.7 mmol/L (3.6-5.0)
[2018-05-04] MEDS: LEVOFLOXACIN 250 MG TABLET PO SCH ×2 (15:31→17:36)
[2018-05-04] MEDS: LOSARTAN POTASSIUM 50 MG TABLET PO SCH (15:31)
[2018-05-04] MEDS: ASPIRIN 81 MG TABLET, ENT COATED PO SCH (15:31)
[2018-05-04] MEDS: METFORMIN HCL 500 MG TABLET PO SCH ×2 (15:31→17:27)
[2018-05-04] MEDS: POTASSIUM CHLORIDE 10 MEQ CAPSULE.ER PO SCH ×2 (15:31→17:27)
[2018-05-04] MEDS: AMLODIPINE BESYLATE 5 MG TABLET PO SCH ×2 (15:32→21:26)
[2018-05-04] MEDS: MAGNESIUM OXIDE 400 MG TABLET PO SCH ×2 (15:32→17:27)
[2018-05-04] MEDS: ATENOLOL 50 MG TABLET PO SCH (15:33)
[2018-05-04] MEDS: CHOLECALCIFEROL (D3) 1,000 UNIT TABLET PO SCH (15:33)
[2018-05-04] MEDS: POTASSIUM CHLORIDE 20 MEQ/50 ML RTU IV SCH ×2 (15:35→17:28)
[2018-05-04] MEDS: SERTRALINE HCL 50 MG TABLET PO SCH ×2 (16:15→17:27)
[2018-05-04] MEDS: ATORVASTATIN CALCIUM 20 MG TABLET PO SCH (21:26)
[2018-05-04] MEDS: DIPHENHYDRAMINE HCL 25 MG CAPSULE PO SCH (21:28)
[2018-05-05] MEDS: LEVOTHYROXINE SODIUM 0.112 MG TABLET PO SCH (05:40)
[2018-05-05 07:23] LABS: ANION GAP 10 (5-19); BLOOD UREA NITROGEN 13 mg/dL (7-20); CALCIUM 9.4 mg/dL (8.4-10.2); CARBON DIOXIDE 22 mmol/L (22-30); CHLORIDE 116 mmol/L (98-107); GLUCOSE 174 mg/dL (75-110); SODIUM 148.3 mmol/L (137-145)
[2018-05-05 07:29] LABS: POTASSIUM 2.7 mmol/L (3.6-5.0)
[2018-05-05] MEDS: MAGNESIUM SULFATE 1 GM/D5W 100 ML IV SCH ×2 (09:17→13:01)
[2018-05-05] MEDS: AMLODIPINE BESYLATE 5 MG TABLET PO SCH ×2 (09:20→22:55)
[2018-05-05] MEDS: CHOLECALCIFEROL (D3) 1,000 UNIT TABLET PO SCH (09:20)
[2018-05-05] MEDS: POTASSIUM CHLORIDE 10 MEQ CAPSULE.ER PO SCH ×2 (09:21→18:49)
[2018-05-05] MEDS: MAGNESIUM OXIDE 400 MG TABLET PO SCH ×2 (09:21→18:49)
[2018-05-05] MEDS: METFORMIN HCL 500 MG TABLET PO SCH ×2 (09:21→18:50)
[2018-05-05] MEDS: ASPIRIN 81 MG TABLET, ENT COATED PO SCH (09:21)
[2018-05-05] MEDS: LOSARTAN POTASSIUM 50 MG TABLET PO SCH (09:21)
[2018-05-05] MEDS: LEVOFLOXACIN 250 MG TABLET PO SCH (09:23)
[2018-05-05 09:57] LABS: ARTERIAL BLOOD BASE EXCESS -3.9 mmol/L; ARTERIAL BLOOD FIO2 21%; ARTERIAL BLOOD H2CO3 0.87 mmol/L (1.05-1.35); ARTERIAL BLOOD HCO3 19.1 mmol/L (20-24); ARTERIAL BLOOD O2 SATURATION 97.7 % (94-98); ARTERIAL BLOOD PH 7.44 (7.35-7.45)
[2018-05-05] MEDS: POTASSIUM CHLORIDE 20 MEQ/50 ML RTU IV SCH ×3 (10:41→16:42)
[2018-05-05] MEDS: ATENOLOL 50 MG TABLET PO SCH (10:46)
[2018-05-05] MEDS: SERTRALINE HCL 50 MG TABLET PO SCH (18:50)
[2018-05-05 20:40] LABS: ANION GAP 14 (5-19); BLOOD UREA NITROGEN 12 mg/dL (7-20); CALCIUM 9.4 mg/dL (8.4-10.2); CARBON DIOXIDE 17 mmol/L (22-30); CHLORIDE 116 mmol/L (98-107); GLUCOSE 192 mg/dL (75-110); SODIUM 147.1 mmol/L (137-145)
[2018-05-05 20:48] LABS: POTASSIUM 3.8 mmol/L (3.6-5.0)
--- NOTE | 2018-05-05 21:29 | PDOC PROGRESS REPORT ---
Subjective Progress Note for:: 05/05/18 Subjective:: Patient was previously discharged but the daughter PT discharge. 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, this was replaced earlier today Reason For Visit: SEVERE HYPOKALEMIA,SEVERE HYPOMAGNESEMIA WITH Physical Exam Vital Signs: Temp Pulse Resp BP Pulse Ox 98.1 F 75 15 140/76 H 98 05/05/18 16:00 05/05/18 16:00 05/05/18 16:00 05/05/18 16:00 05/05/18 16:00 Intake & Output 05/04/18 05/05/18 05/06/18 06:59 06:59 06:59 Intake Total 650 1236 774 Balance 650 1236 774 Weight 54.3 kg 55.6 kg General appearance: PRESENT: no acute distress Eye exam: PRESENT: PERRLA Respiratory exam: PRESENT: clear to auscultation skyler Cardiovascular exam: PRESENT: +S1, +S2 GI/Abdominal exam: PRESENT: soft Neurological exam: PRESENT: alert Results Laboratory Results: 05/04/18 13:18 05/05/18 20:05 05/05/18 05/05/18 05/05/18 06:51 09:35 20:05 Carbonic Acid 0.87 L HCO3/H2CO3 Ratio 21:1 ABG pH 7.44 ABG pCO2 29.0 L ABG pO2 97.0 ABG HCO3 19.1 L ABG O2 Saturation 97.7 ABG Base Excess -3.9 FiO2 21% Sodium 148.3 H 147.1 H Potassium 2.7 L* 3.8 D Chloride 116 H 116 H Carbon Dioxide 22 17 L Anion Gap 10 14 BUN 13 12 Creatinine 0.58 0.59 Est GFR ( Amer) > 60 > 60 Est GFR (Non-Af Amer) > 60 > 60 Glucose 174 H 192 H Calcium 9.4 9.4 Magnesium 1.3 L 1.9 Assessment & Plan - Diagnosis (1) Hypokalemia Is this a current diagnosis for this admission?: Yes Plan: Replace potassium (2) Hypomagnesemia Is this a current diagnosis for this admission?: Yes Plan: Replace magnesium (3) Pseudoobstruction of colon Is this a current diagnosis for this admission?: Yes
[2018-05-05] MEDS: DIPHENHYDRAMINE HCL 25 MG CAPSULE PO SCH (22:55)
[2018-05-05] MEDS: ATORVASTATIN CALCIUM 20 MG TABLET PO SCH (22:55)
[2018-05-06] MEDS: LEVOTHYROXINE SODIUM 0.112 MG TABLET PO SCH (06:20)
[2018-05-06] MEDS: NORMAL SALINE 1000 ML 1,000 ML IV PRN (06:22)
[2018-05-06] MEDS: METFORMIN HCL 500 MG TABLET PO SCH (09:42)
[2018-05-06] MEDS: ASPIRIN 81 MG TABLET, ENT COATED PO SCH (09:42)
[2018-05-06] MEDS: LEVOFLOXACIN 250 MG TABLET PO SCH (09:42)
[2018-05-06] MEDS: LOSARTAN POTASSIUM 50 MG TABLET PO SCH (09:42)
[2018-05-06] MEDS: POTASSIUM CHLORIDE 10 MEQ CAPSULE.ER PO SCH (09:42)
[2018-05-06] MEDS: AMLODIPINE BESYLATE 5 MG TABLET PO SCH (09:43)
[2018-05-06] MEDS: CHOLECALCIFEROL (D3) 1,000 UNIT TABLET PO SCH (09:43)
[2018-05-06] MEDS: MAGNESIUM OXIDE 400 MG TABLET PO SCH (09:43)
[2018-05-06] MEDS: ATENOLOL 50 MG TABLET PO SCH (09:43)
[2018-05-06 09:47] VITALS: BP 140/60
== END 2018-05-06 12:00 | disposition home health service (06) | DRG 690 ==
LOC: ER 22:38 → EH 04-27 03:44 → 5 04-27 05:06 → OBSVTOIN 04-29 15:13
PROVIDERS: ADMIT Internal Medicine Geriatric Medicine; ATTEND Internal Medicine Geriatric Medicine
DX: N39.0 Urinary tract infection, site not specified (principal); E87.2 Acidosis; E87.6 Hypokalemia; E83.42 Hypomagnesemia; B96.20 Unspecified Escherichia coli [E. coli] as the cause of diseases classified elsewhere; E11.9 Type 2 diabetes mellitus without complications; I10 Essential (primary) hypertension; E78.00 Pure hypercholesterolemia, unspecified; E03.9 Hypothyroidism, unspecified; M15.3 Secondary multiple arthritis; I25.10 Atherosclerotic heart disease of native coronary artery without angina pectoris; I48.2 Chronic atrial fibrillation; F32.9 Major depressive disorder, single episode, unspecified; R41.0 Disorientation, unspecified; Z79.899 Other long term (current) drug therapy; Z90.49 Acquired absence of other specified parts of digestive tract; Z90.710 Acquired absence of both cervix and uterus; Z79.82 Long term (current) use of aspirin; Z79.84 Long term (current) use of oral hypoglycemic drugs; Z88.0 Allergy status to penicillin; Z87.891 Personal history of nicotine dependence; Z86.73 Personal history of transient ischemic attack (TIA), and cerebral infarction without residual deficits
CPT/HCPCS: 36415; 36600; 51701; 80048; 80053; 81001; 82803; 82962; 83605; 83735; 84133; 85025; 87040; 87086; 87088; 87186; 96361; 96365; 96366; 99285; G0378; J1815; J1956; J3475; J3480; J7030

== ENCOUNTER 2018-06-07 19:56 | Inpatient (IN) | payer MEDICARE ==
--- NOTE | 2018-06-07 20:35 | ER Document Report ---
ED General - General Chief Complaint: Altered Mental Status Stated Complaint: ALTERED MENTAL STATUS Time Seen by Provider: 06/07/18 20:28 Mode of Arrival: Medic Information source: Relative Notes: This is a 77-year-old debilitated woman with a history of CVAs x2, hypertension, diabetes. She is brought into the emergency room by EMS S because her daughter states that she has "not been acting right" and appears to have increased left arm weakness and pain with movement. The symptoms have been over the past week. TRAVEL OUTSIDE OF THE [place] IN LAST 30 DAYS: No - HPI Onset: Last week Onset/Duration: Gradual Quality of pain: Dull Severity: Moderate Pain Level: 3 Associated symptoms: denies: Chills, Fever, Shortness of breath Exacerbated by: Denies Relieved by: Denies Similar symptoms previously: Yes Recently seen / treated by doctor: No - Related Data Allergies/Adverse Reactions: Penicillins Allergy (Severe, Verified 09/13/17 19:13) Anaphylaxis Past Medical History - General Information source: Parent - Social History Smoking Status: Never Smoker Cigarette use (# per day): No Chew tobacco use (# tins/day): No Frequency of alcohol use: None Drug Abuse: None Lives with: Family Family History: Reviewed & Not Pertinent Patient has suicidal ideation: No Patient has homicidal ideation: No - Past Medical History Cardiac Medical History: Reports: Hx Atrial Fibrillation, Hx Coronary Artery Disease, Hx Hypercholesterolemia, Hx Hypertension Denies: Hx Congestive Heart Failure, Hx Heart Attack Pulmonary Medical History: Denies: Hx Asthma, Hx Bronchitis, Hx COPD, Hx Pneumonia Neurological Medical History: Reports: Hx Cerebrovascular Accident - stroke x 2. Denies: Hx Seizures Endocrine Medical History: Reports: Hx Diabetes Mellitus Type 2 Renal/ Medical History: Denies: Hx Peritoneal Dialysis GI Medical History: Denies: Hx Hepatitis, Hx Hiatal Hernia, Hx Ulcer Musculoskeletal Medical History: 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 Psychiatric Medical History: Reports: Hx Depression Infectious Medical History: Denies: Hx Hepatitis Past Surgical History: Reports: Hx Cholecystectomy, Hx Hysterectomy. Denies: Hx Mastectomy, Hx Open Heart Surgery, Hx Pacemaker - Immunizations Hx Diphtheria, Pertussis, Tetanus Vaccination: Yes Hx Pneumococcal Vaccination: 06/20/00 Review of Systems - Review of Systems Constitutional: denies: Chills, Fever EENT: No symptoms reported Cardiovascular: denies: Chest pain, Palpitations, Heart racing Respiratory: No symptoms reported Gastrointestinal: Diarrhea. denies: Abdominal pain Genitourinary: No symptoms reported Female Genitourinary: No symptoms reported Musculoskeletal: See HPI Skin: No symptoms reported Hematologic/Lymphatic: No symptoms reported Neurological/Psychological: See HPI Physical Exam - Vital signs Vitals: Resp 17 06/07/18 20:05 Notes: Physical exam: GENERAL: Debilitated, nonverbal female with eyes open. She does not appear to be in any pain until we move her left arm. Rectal temperature is 97.8. HEAD: Atraumatic, normocephalic. EYES: Pupils equal round and reactive to light, extraocular movements intact, sclera anicteric, conjunctiva are normal. ENT: TMs normal, nares patent, oropharynx clear without exudates. Moist mucous membranes. NECK: Normal range of motion, supple without obvious mass or JVD. LUNGS: Breath sounds clear to auscultation bilaterally and equal. No wheezes rales or rhonchi. HEART: Regular rate and rhythm without murmurs, rubs or gallops. ABDOMEN: distended abdomen which is soft does not appear to have any significant tenderness with palpation. Normoactive bowel sounds. There is no peritoneal findings. Sacrum: Patient does have a sacral decubiti with break in the skin. Rectal: She does have external hemorrhoids, she does have a very tight rectal sphincter. There is no stool immediately in the vault. EXTREMITIES: Normal range of motion, no pitting or edema. No clubbing or cyanosis. NEUROLOGICAL: Cranial nerves II through XII grossly intact. Normal speech, moving all extremities. PSYCH: Normal mood, normal affect. SKIN: Warm, Dry, normal turgor, no rashes or lesions noted. Course - Vital Signs Vital signs: Temp Pulse Resp BP Pulse Ox 97.4 F 17 98 06/08/18 00:11 06/08/18 00:01 06/08/18 00:01 - Laboratory Result Diagrams: 06/07/18 21:43 06/07/18 21:43 Laboratory results interpreted by me: 06/07/18 06/07/18 06/07/18 21:43 21:43 21:43 WBC 14.0 H RDW 14.9 H Plt Count 555 H Seg Neutrophils % 78.2 H Absolute Neutrophils 11.0 H VBG pH 7.27 L VBG pCO2 33.2 L VBG HCO3 14.8 L Sodium 152.1 H Chloride 122 H Carbon Dioxide 15 L BUN 71 H Creatinine 1.41 H Est GFR ( Amer) 44 L Est GFR (Non-Af Amer) 36 L Glucose 239 H Calcium 11.3 H Total Protein 8.3 H Urine Protein 06/07/18 22:19 WBC RDW Plt Count Seg Neutrophils % Absolute Neutrophils VBG pH VBG pCO2 VBG HCO3 Sodium Chloride Carbon Dioxide BUN Creatinine Est GFR ( Amer) Est GFR (Non-Af Amer) Glucose Calcium Total Protein Urine Protein 100 H - Diagnostic Test Radiology reviewed: Image reviewed, Reports reviewed - Head CT neg Critical Care Note - Critical Care Note Total time excluding time spent on procedures (mins): 60 Discharge - Discharge Clinical Impression: Acute renal failure, Hypernatremia, Encephalopathy Condition: Stable Disposition: ADMITTED INPATIENT Admitting Provider: Stefan Unit Admitted: Telemetry
--- NOTE | 2018-06-07 21:01 | RADIOLOGY REPORT (SQ) ---
EXAM DESCRIPTION: CT HEAD WITHOUT COMPLETED DATE/TIME: 06/07/2018 8:49 pm REASON FOR STUDY: altered COMPARISON: 09/13/2017 TECHNIQUE: Axial images acquired through the brain without intravenous contrast. Images reviewed wi th bone, brain and subdural windows. Additional sagittal and coronal reconstructions were generated. Images stored on PACS. All CT scanners at this facility use dose modulation, iterative reconstruction, and/or weight based d osing when appropriate to reduce radiation dose to as low as reasonably achievable (ALARA). [facility]: Dose Right [facility]: CareDose [facility]: Dose Right [facility]: Teradose 4D [facility]: Smart WellTrackOne RADIATION DOSE: CT Rad equipment meets quality standard of care and radiation dose reduction techniq ues were employed. CTDIvol: 53.2 mGy. DLP: 937 mGy-cm. mGy. LIMITATIONS: None. FINDINGS: VENTRICLES: Prominent ventricles secondary to involutional atrophy. CEREBRUM: No masses. No hemorrhage. No midline shift. No evidence for acute infarction. Areas of l ow density in the white matter most likely chronic small vessel ischemic changes. CEREBELLUM: Small old left cerebellar infarction. No acute infarction. No mass. No hemorrhage. EXTRAAXIAL SPACES: No fluid collections. No masses. ORBITS AND GLOBE: No intra- or extraconal masses. Normal contour of globe without masses. CALVARIUM: No fracture. PARANASAL SINUSES: No fluid or mucosal thickening. SOFT TISSUES: No mass or hematoma. OTHER: No other significant finding. IMPRESSION: MICROVASCULAR ISCHEMIA AND GENERALIZED ATROPHY. NO ACUTE IMAGING FINDINGS IN THE BRAIN EVIDENCE OF ACUTE STROKE: NO. COMMENT: Quality ID # [id number]: Final reports with documentation of one or more dose reduction techniques (e.g., Automated exposure control, adjustment of the mA and/or kV according to patient size, use of iterative reconstruction technique) TECHNICAL DOCUMENTATION: JOB ID: [id number] [employer]- All Rights Reserved Reading location - IP/workstation name: [email or web address]
--- NOTE | 2018-06-07 21:17 | RADIOLOGY REPORT (SQ) ---
EXAM DESCRIPTION: XR HUMERUS COMPLETED DATE/TME: 06/07/2018 20:32 CLINICAL HISTORY: 77 years, Female, pain Findings: Bony alignment is anatomic. No fracture or dislocation. The bones are osteopenic. Moderate left shoulder degenerative changes. Soft tissues are unremarkable. IMPRESSION: No fracture.
--- NOTE | 2018-06-07 21:17 | RADIOLOGY REPORT (SQ) ---
EXAM DESCRIPTION: XR FOREARM 2 VIEWS COMPLETED DATE/TME: 06/07/2018 20:31 CLINICAL HISTORY: 77 years, Female, swelling, pain Findings: Bony alignment is anatomic. No fracture or dislocation. Bones are osteopenic. Soft tissues are unremarkable. IMPRESSION: No fracture.
--- NOTE | 2018-06-07 21:18 | RADIOLOGY REPORT (SQ) ---
EXAM DESCRIPTION: XR CHEST 1 VIEW COMPLETED DATE/TME: 06/07/2018 20:31 CLINICAL HISTORY: 77 years, Female, altered Findings: The heart is not enlarged. Aortic arch is mildly calcified. No consolidations or pleural effusions. No pulmonary edema or pneumothorax. IMPRESSION: No acute disease. No change.
[2018-06-07] MEDS ORDERED: NORMAL SALINE 1000 ML 1,000 ML IV ONE (21:25)
[2018-06-07 21:57] LABS: ABSOLUTE BASOPHILS # (AUTO) 0.1 10^3/uL (0.0-0.2); ABSOLUTE LYMPHOCYTES (AUTO) 1.9 10^3/uL (0.5-4.7); ABSOLUTE MONOCYTES (AUTO) 1.1 10^3/uL (0.1-1.4); BASOPHILS % (AUTO) 0.8 % (0-2); HEMATOCRIT 43.5 % (36.0-47.0); HEMOGLOBIN 14.2 g/dL (12.0-15.5); LYMPHOCYTES % (AUTO) 13.2 % (13-45); MEAN CORPUSCULAR HEMOGLOBIN 29.1 pg (27.0-33.4); MEAN CORPUSCULAR HGB CONC 32.7 g/dL (32.0-36.0); MEAN CORPUSCULAR VOLUME 89 fl (80-97); MONOCYTES % (AUTO) 7.8 % (3-13); PLATELET COUNT 555 10^3/uL (150-450); RED BLOOD COUNT 4.89 10^6/uL (3.72-5.28); RED CELL DISTRIBUTION WIDTH 14.9 % (11.5-14.0); SEGMENTED NEUTROPHILS % (AUTO) 78.2 % (42-78); TOTAL CELLS COUNTED % (AUTO) 100 %
[2018-06-07 22:16] LABS: ALANINE AMINOTRANSFERASE 16 U/L (9-52); ALBUMIN 4.6 g/dL (3.5-5.0); ALKALINE PHOSPHATASE 100 U/L (38-126); ANION GAP 15 (5-19); ASPARTATE AMINO TRANSFERASE 32 U/L (14-36); BILIRUBIN,DIRECT 0.3 mg/dL (0.0-0.4); BILIRUBIN,TOTAL 0.3 mg/dL (0.2-1.3); BLOOD UREA NITROGEN 71 mg/dL (7-20); CALCIUM 11.3 mg/dL (8.4-10.2); CARBON DIOXIDE 15 mmol/L (22-30); CHLORIDE 122 mmol/L (98-107); GLUCOSE 239 mg/dL (75-110); POTASSIUM 4.5 mmol/L (3.6-5.0); SODIUM 152.1 mmol/L (137-145); TOTAL PROTEIN 8.3 g/dL (6.3-8.2)
[2018-06-07 22:27] LABS: VENOUS BLOOD HCO3 14.8 mmol/L (20-32); VENOUS BLOOD PCO2 33.2 mmHg (35-63); VENOUS BLOOD PH 7.27 (7.30-7.42)
[2018-06-07 22:38] LABS: APPEARANCE,URINE SLIGHTLY-CLOUDY; BILIRUBIN,URINE NEGATIVE (NEGATIVE); COLOR,URINE YELLOW; GLUCOSE, URINE NEGATIVE (NEGATIVE); KETONES,URINE NEGATIVE (NEGATIVE); LEUKOCYTE ESTERASE,URINE NEGATIVE (NEGATIVE); NITRITE,URINE NEGATIVE (NEGATIVE); PROTEIN,URINE 100 mg/dL (NEGATIVE); URINE SPECIFIC GRAVITY 1.021; UROBILINOGEN,URINE NEGATIVE mg/dL (<2.0)
[2018-06-08] MEDS: NORMAL SALINE 1000 ML 1,000 ML IV PRN ×2 (05:15→16:48)
--- NOTE | 2018-06-08 08:24 | PDOC H&P ---
History of Present Illness Admission Date/PCP: 06/07/18 23:36 MAGDATAI KAMARA History of Present Illness: TRA DESAI is a 77 year old female patient known to my practice who was brought to the ED by EMS with daughter reporting change in mental status. Patient is presently minimally verbal. Daughter reported that over the last week patient's oral intake have been poor and she demonstrated paranoid behaviour thinking that daughter was trying to kill her. She insisted on calling cableman few days ago and her evaluation on site was unrevealing. Daughter claimed that patient subsequently became less interactive and demonstrated left sided weakness. Daughter denied any fever or chills. No difficulty with breathing. No vomiting or more than usual chunky liquid diarrhea bowel movement. No reported seizure or loss of consciousness. Her initial evaluation in the ED was remarkable for elevated BUN and creatinine that suggested ARF. She was advised admission for further evaluation and management. Her morbidities include Diabetes Mellitus Type 2, Chronic Atrial Fibrillation, Coronary Artery Disease, Hypertension, Hyperlipidemia, Cerebrovascular Accident - stroke x 2, Osteoarthr itis, and Depression. 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 Psychiatric Medical History: Reports: Depression Hematology: Denies: Anemia, Sickle Cell Disease Past Surgical History Past Surgical History: Reports: Cholecystectomy, Hysterectomy Denies: Amputation, Mastectomy, Pacemaker Social History Lives with: Family Smoking Status: Never Smoker Frequency of Alcohol Use: None Hx Recreational Drug Use: No Drugs: None Hx Prescription Drug Abuse: No - Advance Directive Resuscitation Status: Full Code - I had extensive discussion with patient's daug hter at bedside, presently patient is full code and family will decide further intervention if there is need for resuscitation Family History Family History: Reviewed & Not Pertinent Parental Family History Reviewed: Yes Children Family History Reviewed: Yes Sibling(s) Family History Reviewed.: Yes Medication/Allergy Allergies/Adverse Reactions: Penicillins Allergy (Severe, Verified 09/13/17 19:13) Anaphylaxis Review of Systems ROS unobtainable: Due to mental status Physical Exam Vital Signs: Temp Pulse Resp BP Pulse Ox 97.5 F 66 17 118/63 98 06/08/18 03:41 06/08/18 03:41 06/08/18 03:41 06/08/18 01:03 06/08/18 03:41 Intake & Output 06/07/18 06/08/18 06/09/18 06:59 06:59 06:59 Intake Total 1000 Balance 1000 Weight 28.3 kg General appearance: PRESENT: no acute distress, thin Head exam: PRESENT: atraumatic, normocephalic Eye exam: PRESENT: conjunctiva pink, EOMI, PERRLA. ABSENT: scleral icterus Ear exam: PRESENT: normal external ear exam Mouth exam: PRESENT: moist Neck exam: PRESENT: full ROM. ABSENT: carotid bruit, JVD, lymphadenopathy, thyromegaly Respiratory exam: PRESENT: clear to auscultation skyler, decreased breath sounds - at lung bases Cardiovascular exam: PRESENT: RRR. ABSENT: diastolic murmur, rubs, systolic murmur Vascular exam: PRESENT: normal capillary refill. ABSENT: pallor GI/Abdominal exam: PRESENT: distended, normal bowel sounds, soft. ABSENT: guarding, mass, organolmegaly, rebound, tenderness Rectal exam: PRESENT: deferred Extremities exam: PRESENT: joint swelling - left arm swelling, probably due to position effect. ABSENT: pedal edema Musculoskeletal exam: PRESENT: deformity - related to multiple joints involve ment with arthritis Neurological exam: PRESENT: alert, awake, other - no coherent verbal response Psychiatric exam: PRESENT: other - difficult to assess Skin exam: PRESENT: dry, warm Results Laboratory Results: 06/07/18 21:43 06/07/18 21:43 06/07/18 06/07/18 06/07/18 20:35 21:43 21:43 WBC 14.0 H RBC 4.89 Hgb 14.2 Hct 43.5 MCV 89 MCH 29.1 MCHC 32.7 RDW 14.9 H Plt Count 555 H Seg Neutrophils % 78.2 H Lymphocytes % 13.2 Monocytes % 7.8 Eosinophils % 0.0 Basophils % 0.8 Absolute Neutrophils 11.0 H Absolute Lymphocytes 1.9 Absolute Monocytes 1.1 Absolute Eosinophils 0.0 Absolute Basophils 0.1 VBG pH VBG pCO2 VBG HCO3 VBG Base Excess Sodium 152.1 H Potassium 4.5 Chloride 122 H Carbon Dioxide 15 L Anion Gap 15 BUN 71 H Creatinine 1.41 H Est GFR ( Amer) 44 L Est GFR (Non-Af Amer) 36 L Glucose 239 H Lactic Acid Calcium 11.3 H Magnesium 2.2 Total Bilirubin 0.3 AST 32 ALT 16 Alkaline Phosphatase 100 Total Protein 8.3 H Albumin 4.6 Urine Color Urine Appearance Urine pH Ur Specific [place] Urine Protein Urine Glucose (UA) Urine Ketones Urine Blood Urine Nitrite Ur Leukocyte Esterase Urine WBC (Auto) Urine RBC (Auto) Stool Occult Blood NEGATIVE 06/07/18 06/07/18 06/07/18 21:43 21:43 22:19 WBC RBC Hgb Hct MCV MCH MCHC RDW Plt Count Seg Neutrophils % Lymphocytes % Monocytes % Eosinophils % Basophils % Absolute Neutrophils Absolute Lymphocytes Absolute Monocytes Absolute Eosinophils Absolute Basophils VBG pH 7.27 L VBG pCO2 33.2 L VBG HCO3 14.8 L VBG Base Excess -11.0 Sodium Potassium Chloride Carbon Dioxide Anion Gap BUN Creatinine Est GFR ( Amer) Est GFR (Non-Af Amer) Glucose Lactic Acid 1.8 Calcium Magnesium Total Bilirubin AST ALT Alkaline Phosphatase Total Protein Albumin Urine Color YELLOW Urine Appearance SLIGHTLY-CLOUDY Urine pH 5.0 Ur Specific [place] 1.021 Urine Protein 100 H Urine Glucose (UA) NEGATIVE Urine Ketones NEGATIVE Urine Blood NEGATIVE Urine Nitrite NEGATIVE Ur Leukocyte Esterase NEGATIVE Urine WBC (Auto) 2 Urine RBC (Auto) 2 Stool Occult Blood Impressions: Chest X-Ray 06/07/18 20:31 IMPRESSION: No acute disease. No change. Forearm X-Ray 06/07/18 20:31 IMPRESSION: No fracture. Humerus X-Ray 06/07/18 20:32 IMPRESSION: No fracture. Head CT 06/07/18 20:35 IMPRESSION: MICROVASCULAR ISCHEMIA AND GENERALIZED ATROPHY. NO ACUTE IMAGING FINDINGS IN THE BRAIN EVIDENCE OF ACUTE STROKE: NO. Assessment & Plan - Diagnosis (1) Toxic metabolic encephalopathy Is this a current diagnosis for this admission?: Yes Plan: Probably due to underlying infection in view of her leukocytosis and left shift, ARF, and hypercalcemia. Continue IV fluid hydration. I will request for sepsis workup and empirically cover her for possible UTI. (2) Acute renal failure (ARF) Qualifiers: Acute renal failure type: unspecified Qualified Code(s): N17.9 - Acute kidney failure, unspecified Is this a current diagnosis for this admission?: Yes Plan: Continue IV fluid infusion with normal saline. Monitor her renal indices. (3) Diabetes mellitus type 2 in nonobese Is this a current diagnosis for this admission?: Yes Plan: Maintain on sliding scale Humalog insulin coverage until improvement in her oral intake. (4) HTN (hypertension) Qualifiers: Hypertension type: essential hypertension Qualified Code(s): I10 - Essential (primary) hypertension Plan: Monitor blood pressure and restart on her preadmission medication management. (5) History of CVA (cerebrovascular accident) Is this a current diagnosis for this admission?: Yes Plan: Her CT scan of brain was negative for any acute pathologic process. Continue supportive care. (6) Hyperlipidemia associated with type 2 diabetes mellitus Is this a current diagnosis for this admission?: Yes Plan: Maintainon preadmission medication management when PO intake is tolerated. (7) Hypothyroidism Qualifiers: Hypothyroidism type: acquired Qualified Code(s): E03.9 - Hypothyroidism, unspecified Is this a current diagnosis for this admission?: Yes Plan: Maintain on preadmission medication management as tolerated. (8) Osteoarthritis involving multiple joints on both sides of body Is this a current diagnosis for this admission?: Yes Plan: Maintain on preadmission medication management as tolerated. (9) Paralytic ileus of large intestine Is this a current diagnosis for this admission?: Yes Plan: Patient always demonstrated colonic ileus with significant electrolyte derangement. Maintain on preadmission medication management as tolerated. - Time Time Spent: 50 to 70 Minutes Medications reviewed and adjusted accordingly: Yes Anticipated discharge: Home with Homehealth Within: Other - Inpatient Certification Based on my medical assessment, after consideration of the patient's comorbidities, presenting symptoms, or acuity I expect that the services needed warrant INPATIENT care.: Yes I certify that my determination is in accordance with my understanding of Medicare's requirements for reasonable and necessary INPATIENT services [42 CFR 412.3e].: Yes Medical Necessity: Need Close Monitoring Due to Risk of Patient Decompensation, Need For IV Fluids, Need For Continuous Telemetry Monitoring, Risk of Complication if Not Cared For in Hospital Post Hospital Care: D/C Bacteriologist Soil Documentation - Plan Summary Plan Summary: See admitting attending physician orders as per outlined care plan.
[2018-06-08] MEDS ORDERED: DEXTROSE 50%-WATER SYRINGE 25 GM/50 ML DOSE IV PRN (08:30)
[2018-06-08] MEDS ORDERED: DEXTROSE 40% GEL 15 GM TUBE PO PRN (08:30)
[2018-06-08] MEDS ORDERED: GLUCAGON,HUMAN RECOMB 1 MG INJ IM PRN (08:30)
[2018-06-08] MEDS ORDERED: DEXTROSE 50%-WATER SYRINGE 12.5 GM/25 ML DOSE IV PRN (08:30)
[2018-06-08] MEDS ORDERED: DEXTROSE 40% GEL 15 GM TUBE X 2 PO PRN (08:30)
[2018-06-08] MEDS: LEVOFLOXACIN 250 MG/D5W RTU 250 MG/50 ML RTUPB IV SCH (10:18)
[2018-06-08] MEDS: INSULIN LISPRO 100 UNIT/ML 3 ML VIAL SUBCUT PRN (13:51)
[2018-06-08] MEDS ORDERED: DIPHENHYDRAMINE HCL 50 MG CAPSULE PO PRN (16:45)
[2018-06-08] MEDS: MAGNESIUM OXIDE 400 MG TABLET PO SCH (17:24)
[2018-06-08] MEDS: POTASSIUM CHLORIDE 10 MEQ CAPSULE.ER PO SCH (22:05)
[2018-06-08] MEDS: ATORVASTATIN CALCIUM 20 MG TABLET PO SCH (22:06)
[2018-06-09 05:08] LABS: ABSOLUTE LYMPHOCYTES (AUTO) 1.9 10^3/uL (0.5-4.7); ABSOLUTE MONOCYTES (AUTO) 0.7 10^3/uL (0.1-1.4); ABSOLUTE NEUT (AUTO) 9.6 10^3/uL (1.7-8.2); BASOPHILS % (AUTO) 0.3 % (0-2); EOSINOPHILS % (AUTO) 0.1 % (0-6); HEMATOCRIT 38.9 % (36.0-47.0); HEMOGLOBIN 12.7 g/dL (12.0-15.5); LYMPHOCYTES % (AUTO) 15.2 % (13-45); MEAN CORPUSCULAR HEMOGLOBIN 28.9 pg (27.0-33.4); MEAN CORPUSCULAR HGB CONC 32.6 g/dL (32.0-36.0); MEAN CORPUSCULAR VOLUME 89 fl (80-97); MONOCYTES % (AUTO) 5.9 % (3-13); PLATELET COUNT 406 10^3/uL (150-450); RED BLOOD COUNT 4.39 10^6/uL (3.72-5.28); RED CELL DISTRIBUTION WIDTH 14.9 % (11.5-14.0); SEGMENTED NEUTROPHILS % (AUTO) 78.5 % (42-78); TOTAL CELLS COUNTED % (AUTO) 100 %; WHITE BLOOD COUNT 12.3 10^3/uL (4.0-10.5)
[2018-06-09 05:29] LABS: ALANINE AMINOTRANSFERASE 15 U/L (9-52); ALBUMIN 3.8 g/dL (3.5-5.0); ALKALINE PHOSPHATASE 85 U/L (38-126); ANION GAP 14 (5-19); ASPARTATE AMINO TRANSFERASE 22 U/L (14-36); BILIRUBIN,DIRECT 0.3 mg/dL (0.0-0.4); BILIRUBIN,TOTAL 0.3 mg/dL (0.2-1.3); BLOOD UREA NITROGEN 63 mg/dL (7-20); CARBON DIOXIDE 13 mmol/L (22-30); CHLORIDE 129 mmol/L (98-107); GLUCOSE 166 mg/dL (75-110); POTASSIUM 3.6 mmol/L (3.6-5.0); SODIUM 155.7 mmol/L (137-145); TOTAL PROTEIN 6.8 g/dL (6.3-8.2)
[2018-06-09] MEDS: NORMAL SALINE 1000 ML 1,000 ML IV PRN ×2 (05:46→17:45)
[2018-06-09] MEDS: POTASSIUM CHLORIDE 10 MEQ CAPSULE.ER PO SCH ×3 (05:47→21:56)
[2018-06-09] MEDS: LEVOTHYROXINE SODIUM 0.112 MG TABLET PO SCH (05:48)
[2018-06-09] MEDS: LOSARTAN POTASSIUM 50 MG TABLET PO SCH (11:00)
[2018-06-09] MEDS: METFORMIN HCL 500 MG TABLET PO SCH ×2 (11:00→17:44)
[2018-06-09] MEDS: LEVOFLOXACIN 250 MG/D5W RTU 250 MG/50 ML RTUPB IV SCH (11:01)
[2018-06-09] MEDS: MAGNESIUM OXIDE 400 MG TABLET PO SCH ×3 (11:01→17:44)
[2018-06-09] MEDS: AMLODIPINE BESYLATE 5 MG TABLET PO SCH (11:01)
[2018-06-09] MEDS: CHOLECALCIFEROL (D3) 1,000 UNIT TABLET PO SCH ×2 (11:02→11:18)
[2018-06-09] MEDS: ASPIRIN 81 MG TABLET, ENT COATED PO SCH ×2 (11:02→11:18)
[2018-06-09] MEDS: ATENOLOL 50 MG TABLET PO SCH ×2 (11:02→11:18)
[2018-06-09] MEDS: SERTRALINE HCL 50 MG TABLET PO SCH (11:11)
--- NOTE | 2018-06-09 14:35 | PDOC PROGRESS REPORT ---
Subjective Progress Note for:: 06/09/18 Subjective:: Patient oral intake remain very poor. she remain on IV fluid normal saline support. No reported fever or difficulty with breathing. Reason For Visit: TOXIC METABOLIC ENCEPHALOPATHY, ARF Physical Exam Vital Signs: Temp Pulse Resp BP Pulse Ox 98.5 F 74 16 155/68 H 95 06/09/18 11:46 06/09/18 11:46 06/09/18 11:46 06/09/18 11:46 06/09/18 11:46 Intake & Output 06/08/18 06/09/18 06/10/18 06:59 06:59 06:59 Intake Total 1000 2258 50 Output Total 700 Balance 1000 1558 50 Weight 28.3 kg 28.2 kg General appearance: PRESENT: no acute distress, thin Head exam: PRESENT: atraumatic, normocephalic Eye exam: PRESENT: conjunctiva pink, EOMI, PERRLA. ABSENT: scleral icterus Ear exam: PRESENT: normal external ear exam Mouth exam: PRESENT: moist - fairly Respiratory exam: PRESENT: clear to auscultation skyler, decreased breath sounds Cardiovascular exam: PRESENT: RRR, +S1, +S2. ABSENT: diastolic murmur, systolic murmur GI/Abdominal exam: PRESENT: distended, normal bowel sounds, soft. ABSENT: guarding, mass, rebound, tenderness Extremities exam: ABSENT: pedal edema Musculoskeletal exam: PRESENT: normal inspection Neurological exam: PRESENT: alert, awake Psychiatric exam: ABSENT: agitated Skin exam: PRESENT: dry, warm Results Laboratory Results: 06/09/18 03:52 06/09/18 03:52 06/09/18 06/09/18 03:52 03:52 WBC 12.3 H RBC 4.39 Hgb 12.7 Hct 38.9 MCV 89 MCH 28.9 MCHC 32.6 RDW 14.9 H Plt Count 406 Seg Neutrophils % 78.5 H Lymphocytes % 15.2 Monocytes % 5.9 Eosinophils % 0.1 Basophils % 0.3 Absolute Neutrophils 9.6 H Absolute Lymphocytes 1.9 Absolute Monocytes 0.7 Absolute Eosinophils 0.0 Absolute Basophils 0.0 Sodium 155.7 H Potassium 3.6 Chloride 129 H Carbon Dioxide 13 L Anion Gap 14 BUN 63 H Creatinine 1.07 Est GFR ( Amer) > 60 Est GFR (Non-Af Amer) 49 L Glucose 166 H Calcium 10.0 Total Bilirubin 0.3 AST 22 ALT 15 Alkaline Phosphatase 85 Total Protein 6.8 Albumin 3.8 Impressions: Chest X-Ray 06/07/18 20:31 IMPRESSION: No acute disease. No change. Forearm X-Ray 06/07/18 20:31 IMPRESSION: No fracture. Humerus X-Ray 06/07/18 20:32 IMPRESSION: No fracture. Head CT 06/07/18 20:35 IMPRESSION: MICROVASCULAR ISCHEMIA AND GENERALIZED ATROPHY. NO ACUTE IMAGING FINDINGS IN THE BRAIN EVIDENCE OF ACUTE STROKE: NO. Assessment & Plan - Diagnosis (1) Toxic metabolic encephalopathy Is this a current diagnosis for this admission?: Yes (2) Acute renal failure (ARF) Qualifiers: Acute renal failure type: unspecified Qualified Code(s): N17.9 - Acute kidney failure, unspecified Is this a current diagnosis for this admission?: Yes (3) Diabetes mellitus type 2 in nonobese Is this a current diagnosis for this admission?: Yes (4) HTN (hypertension) Qualifiers: Hypertension type: essential hypertension Qualified Code(s): I10 - Essential (primary) hypertension Is this a current diagnosis for this admission?: Yes Plan: continue current medication management. (5) History of CVA (cerebrovascular accident) Is this a current diagnosis for this admission?: Yes (6) Hyperlipidemia associated with type 2 diabetes mellitus Is this a current diagnosis for this admission?: Yes (7) Hypothyroidism Qualifiers: Hypothyroidism type: acquired Qualified Code(s): E03.9 - Hypothyroidism, unspecified Is this a current diagnosis for this admission?: Yes (8) Osteoarthritis involving multiple joints on both sides of body Is this a current diagnosis for this admission?: Yes (9) Paralytic ileus of large intestine Is this a current diagnosis for this admission?: Yes - Time Time Spent with patient: 25-34 minutes Medications reviewed and adjusted accordingly: Yes Anticipated discharge: SNF Within: Other - Inpatient Certification Based on my medical assessment, after consideration of the patient's comorbid ities, presenting symptoms, or acuity I expect that the services needed warrant INPATIENT care.: Yes I certify that my determination is in accordance with my understanding of Medicare's requirements for reasonable and necessary INPATIENT services [42 CFR 412.3e].: Yes Medical Necessity: Need Close Monitoring Due to Risk of Patient Decompensation, Need For IV Fluids, Need for IV Antibiotics, Risk of Complication if Not Cared For in Hospital Post Hospital Care: D/C Communications Tower Climber Documentation - Plan Summary Plan Summary: Continue IV fluid support and antibiotic coverage. Follow up on culture results. Request assistant customer service manager evaluation for possible failure to thrive. Family not r eceptive to hospice placement at this time. Continue to monitor renal indices and her CBC with differential.
[2018-06-09 15:27] LABS: ABSOLUTE BASOPHILS # (AUTO) 0.1 10^3/uL (0.0-0.2); ABSOLUTE LYMPHOCYTES (AUTO) 2.1 10^3/uL (0.5-4.7); ABSOLUTE MONOCYTES (AUTO) 0.8 10^3/uL (0.1-1.4); ABSOLUTE NEUT (AUTO) 7.9 10^3/uL (1.7-8.2); BASOPHILS % (AUTO) 0.8 % (0-2); HEMATOCRIT 40.6 % (36.0-47.0); HEMOGLOBIN 13.3 g/dL (12.0-15.5); LYMPHOCYTES % (AUTO) 19.4 % (13-45); MEAN CORPUSCULAR HGB CONC 32.8 g/dL (32.0-36.0); MEAN CORPUSCULAR VOLUME 89 fl (80-97); PLATELET COUNT 414 10^3/uL (150-450); RED BLOOD COUNT 4.58 10^6/uL (3.72-5.28); RED CELL DISTRIBUTION WIDTH 14.9 % (11.5-14.0); SEGMENTED NEUTROPHILS % (AUTO) 72.8 % (42-78); TOTAL CELLS COUNTED % (AUTO) 100 %; WHITE BLOOD COUNT 10.9 10^3/uL (4.0-10.5)
[2018-06-09] MEDS: ATORVASTATIN CALCIUM 20 MG TABLET PO SCH (21:56)
[2018-06-10] MEDS: LEVOTHYROXINE SODIUM 0.112 MG TABLET PO SCH (05:07)
[2018-06-10] MEDS: POTASSIUM CHLORIDE 10 MEQ CAPSULE.ER PO SCH ×3 (05:07→22:14)
[2018-06-10] MEDS: NORMAL SALINE 1000 ML 1,000 ML IV PRN ×2 (05:13→16:26)
[2018-06-10 05:45] LABS: ANION GAP 11 (5-19); BLOOD UREA NITROGEN 50 mg/dL (7-20); CALCIUM 10.1 mg/dL (8.4-10.2); CARBON DIOXIDE 16 mmol/L (22-30); CHLORIDE 133 mmol/L (98-107); GLUCOSE 186 mg/dL (75-110); POTASSIUM 3.8 mmol/L (3.6-5.0); SODIUM 159.7 mmol/L (137-145)
[2018-06-10] MEDS: AMLODIPINE BESYLATE 5 MG TABLET PO SCH (11:04)
[2018-06-10] MEDS: ATENOLOL 50 MG TABLET PO SCH (11:11)
[2018-06-10] MEDS: CHOLECALCIFEROL (D3) 1,000 UNIT TABLET PO SCH (11:11)
[2018-06-10] MEDS: ASPIRIN 81 MG TABLET, ENT COATED PO SCH (11:11)
[2018-06-10] MEDS: MAGNESIUM OXIDE 400 MG TABLET PO SCH ×3 (11:11→19:37)
[2018-06-10] MEDS: LOSARTAN POTASSIUM 50 MG TABLET PO SCH (11:12)
[2018-06-10] MEDS: SERTRALINE HCL 50 MG TABLET PO SCH (11:12)
[2018-06-10] MEDS: LEVOFLOXACIN 250 MG/D5W RTU 250 MG/50 ML RTUPB IV SCH (11:23)
[2018-06-10] MEDS: METFORMIN HCL 500 MG TABLET PO SCH ×2 (11:24→16:26)
--- NOTE | 2018-06-10 19:23 | PDOC PROGRESS REPORT ---
Subjective Progress Note for:: 06/10/18 Subjective:: Patient was seen by the bedside daughter was in the room, poor intake, lab work indicated hypernatremia presently on normal saline. Patient daughter is upset because she said Dr. 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 Reason For Visit: TOXIC METABOLIC ENCEPHALOPATHY, ARF Physical Exam Vital Signs: Temp Pulse Resp BP Pulse Ox 98.9 F 73 16 139/56 H 95 06/10/18 15:47 06/10/18 15:47 06/10/18 15:47 06/10/18 15:47 06/10/18 15:47 Intake & Output 06/09/18 06/10/18 06/11/18 06:59 06:59 06:59 Intake Total 2258 2255 1100 Output Total 700 775 300 Balance 1558 1480 800 Weight 28.2 kg 28.3 kg General appearance: PRESENT: no acute distress Respiratory exam: PRESENT: clear to auscultation skyler Cardiovascular exam: PRESENT: +S1, +S2 GI/Abdominal exam: PRESENT: distended Results Laboratory Results: 06/09/18 14:59 06/10/18 04:20 06/10/18 04:20 Sodium 159.7 H Potassium 3.8 Chloride 133 H Carbon Dioxide 16 L Anion Gap 11 BUN 50 H Creatinine 1.00 Est GFR ( Amer) > 60 Est GFR (Non-Af Amer) 53 L Glucose 186 H Calcium 10.1 Impressions: Chest X-Ray 06/07/18 20:31 IMPRESSION: No acute disease. No change. Forearm X-Ray 06/07/18 20:31 IMPRESSION: No fracture. Humerus X-Ray 06/07/18 20:32 IMPRESSION: No fracture. Head CT 06/07/18 20:35 IMPRESSION: MICROVASCULAR ISCHEMIA AND GENERALIZED ATROPHY. NO ACUTE IMAGING FINDINGS IN THE BRAIN EVIDENCE OF ACUTE STROKE: NO. Assessment & Plan - Diagnosis (1) Hypernatremia Is this a current diagnosis for this admission?: Yes Plan: Discontinue normal saline start 5% dextrose with potassium, though she is a diabetic this may cause hyperglycemia but she needs free water (2) Physical debility Is this a current diagnosis for this admission?: Yes (3) Pseudoobstruction of colon Is this a current diagnosis for this admission?: Yes (4) Urinary tract infection Qualifiers: Urinary tract infection type: site unspecified Hematuria presence: without hematuria Qualified Code(s): N39.0 - Urinary tract infection, site not specified Is this a current diagnosis for this admission?: Yes
[2018-06-10] MEDS: DEXTROSE 5%-WATER 1000 ML 1,000 ML IV PRN (22:14)
[2018-06-10] MEDS: ATORVASTATIN CALCIUM 20 MG TABLET PO SCH (22:14)
[2018-06-11] MEDS: POTASSIUM CHLORIDE 10 MEQ CAPSULE.ER PO SCH ×3 (06:02→22:17)
[2018-06-11] MEDS: LEVOTHYROXINE SODIUM 0.112 MG TABLET PO SCH (06:03)
[2018-06-11] MEDS: METFORMIN HCL 500 MG TABLET PO SCH ×2 (08:16→15:24)
[2018-06-11] MEDS: CHOLECALCIFEROL (D3) 1,000 UNIT TABLET PO SCH (10:29)
[2018-06-11] MEDS: LOSARTAN POTASSIUM 50 MG TABLET PO SCH (10:29)
[2018-06-11] MEDS: ASPIRIN 81 MG TABLET, ENT COATED PO SCH (10:29)
[2018-06-11] MEDS: AMLODIPINE BESYLATE 5 MG TABLET PO SCH (10:29)
[2018-06-11] MEDS: LEVOFLOXACIN 250 MG/D5W RTU 250 MG/50 ML RTUPB IV SCH (10:29)
[2018-06-11] MEDS: SERTRALINE HCL 50 MG TABLET PO SCH (10:30)
[2018-06-11] MEDS: ATENOLOL 50 MG TABLET PO SCH (10:30)
[2018-06-11] MEDS: MAGNESIUM OXIDE 400 MG TABLET PO SCH ×3 (10:30→17:36)
[2018-06-11] MEDS: INSULIN LISPRO 100 UNIT/ML 3 ML VIAL SUBCUT PRN ×2 (11:09→18:01)
[2018-06-11] MEDS: DEXTROSE 5%-WATER 1000 ML 1,000 ML IV PRN (11:13)
[2018-06-11 13:17] LABS: ALANINE AMINOTRANSFERASE 43 U/L (9-52); ALBUMIN 3.3 g/dL (3.5-5.0); ALKALINE PHOSPHATASE 74 U/L (38-126); ANION GAP 13 (5-19); ASPARTATE AMINO TRANSFERASE 62 U/L (14-36); BILIRUBIN,DIRECT 0.3 mg/dL (0.0-0.4); BILIRUBIN,TOTAL 0.4 mg/dL (0.2-1.3); BLOOD UREA NITROGEN 41 mg/dL (7-20); CALCIUM 9.7 mg/dL (8.4-10.2); CARBON DIOXIDE 13 mmol/L (22-30); CHLORIDE 134 mmol/L (98-107); GLUCOSE 330 mg/dL (75-110); POTASSIUM 3.6 mmol/L (3.6-5.0); SODIUM 160.3 mmol/L (137-145)
--- NOTE | 2018-06-11 16:52 | PDOC PROGRESS REPORT ---
Subjective Progress Note for:: 06/11/18 Subjective:: Patient is new to me. Her primary attending was Dr. Aviles until he was fired by patient's daughter yesterday. Patient brought by daughter with chief complaint of altered mental status and poor oral intake. Patient has multiple comorbidities including CVA twice, hypertension, diabetes mellitus, atrial fibrillation, coronary artery disease, hyperlipidemia, osteoarthritis, hypothyroidism and depression. When I see this patient patient is nonverbal but she is not in pain or any form of distress her abdomen is grossly distended and and tympanitic to percussion. X-ray was reported as colonic pseudoobstruction. Reason For Visit: TOXIC METABOLIC ENCEPHALOPATHY, ARF Physical Exam Vital Signs: Temp Pulse Resp BP Pulse Ox 98.6 F 71 18 109/60 98 06/11/18 15:16 06/11/18 15:16 06/11/18 15:16 06/11/18 15:16 06/11/18 15:16 Intake & Output 06/10/18 06/11/18 06/12/18 06:59 06:59 06:59 Intake Total 2255 1350 959 Output Total 775 550 Balance 1480 800 959 Weight 28.3 kg 54.8 kg General appearance: PRESENT: no acute distress Head exam: PRESENT: atraumatic Eye exam: PRESENT: conjunctiva pink Mouth exam: PRESENT: moist Neck exam: ABSENT: carotid bruit, JVD, lymphadenopathy, thyromegaly Respiratory exam: PRESENT: clear to auscultation skyler. ABSENT: rales, rhonchi, wheezes Cardiovascular exam: PRESENT: irregular rhythm GI/Abdominal exam: PRESENT: distended - Grossly distended abdomen, hypoactive bowel sounds Neurological exam: PRESENT: alert Results Laboratory Results: 06/09/18 14:59 06/11/18 12:34 06/11/18 12:34 Sodium 160.3 H Potassium 3.6 Chloride 134 H Carbon Dioxide 13 L Anion Gap 13 BUN 41 H Creatinine 0.92 Est GFR ( Amer) > 60 Est GFR (Non-Af Amer) 59 L Glucose 330 H Calcium 9.7 Total Bilirubin 0.4 AST 62 H ALT 43 Alkaline Phosphatase 74 Total Protein 6.0 L Albumin 3.3 L 06/07/18 22:19 Catheterized Urine Urine Culture - Final Aerococcus Urinae Impressions: Chest X-Ray 06/07/18 20:31 IMPRESSION: No acute disease. No change. Forearm X-Ray 06/07/18 20:31 IMPRESSION: No fracture. Humerus X-Ray 06/07/18 20:32 IMPRESSION: No fracture. Head CT 06/07/18 20:35 IMPRESSION: MICROVASCULAR ISCHEMIA AND GENERALIZED ATROPHY. NO ACUTE IMAGING FINDINGS IN THE BRAIN EVIDENCE OF ACUTE STROKE: NO. Assessment & Plan - Diagnosis (1) Hypernatremia Is this a current diagnosis for this admission?: Yes Plan: Today her sodium is 159. Patient has been on D5W (2) Toxic metabolic encephalopathy Is this a current diagnosis for this admission?: Yes Plan: Most probably due to electrolyte imbalance. 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 Since patient has multiple comorbidities, it is risky. (5) Acute renal failure (ARF) Qualifiers: Acute renal failure type: unspecified Qualified Code(s): N17.9 - Acute kidney failure, unspecified Is this a current diagnosis for this admission?: Yes Plan: Is resolving (6) Diabetes mellitus type 2 in nonobese Is this a current diagnosis for this admission?: Yes Plan: Continue sliding scale (7) Hypothyroidism Qualifiers: Hypothyroidism type: acquired Qualified Code(s): E03.9 - Hypothyroidism, unspecified Is this a current diagnosis for this admission?: Yes Plan: Continue Synthroid (8) HTN (hypertension) Qualifiers: Hypertension type: essential hypertension Qualified Code(s): I10 - Essential (primary) hypertension Is this a current diagnosis for this admission?: Yes Plan: Continue current regimen (9) Hyperlipidemia associated with type 2 diabetes mellitus Is this a current diagnosis for this admission?: Yes Plan: Continue current treatment
--- NOTE | 2018-06-11 21:34 | PDOC CONSULTATION ---
Consultation Consult Date: 06/11/18 Consult reason:: Chronic megacolon History of Present Illness Admission Date/PCP: 06/07/18 23:36 MAGDA ASAD History of Present Illness: TRA DESAI is a 77 year old female seen in consultation at the request of the hospitalist service. This is a patient with abdominal distention and megacolon seen on x-rays. The patient's family relates that her abdomen is always like this. She can only have a bowel movement while sitting up. Prior to today, the patient has not had a bowel movement due to her supine position (per the family). The patient was mobilized to a bedside potty chair and had a large bowel movement today. The patient's family denies any abdominal pain. Any further review of systems is unable to be obtained. The patient was nonverbal for me. 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 Psychiatric Medical History: Reports: Depression Hematology: Denies: Anemia, Sickle Cell Disease Past Surgical History Past Surgical History: Reports: Cholecystectomy, Hysterectomy Denies: Amputation, Mastectomy, Pacemaker Social History Lives with: Family Smoking Status: Never Smoker Frequency of Alcohol Use: None Hx Recreational Drug Use: No Drugs: None Hx Prescription Drug Abuse: No - Advance Directive Resuscitation Status: Full Code - I had extensive discussion with patient's daughter at bedside, presently patient is full code and family will decide further intervention if there is need for resuscitation Family History Family History: Reviewed & Not Pertinent Parental Family History Reviewed: Yes Children Family History Reviewed: Yes Sibling(s) Family History Reviewed.: Yes Medication/Allergy Home Medications: Amlodipine Besylate [Norvasc 5 mg Tablet] 5 mg PO DAILY 06/08/18 Aspirin [Ecotrin 81 mg EC Tablet] 81 mg PO DAILY 06/08/18 Atenolol [Tenormin 100 mg Tablet] 100 mg PO DAILY 06/08/18 Atorvastatin Calcium [Lipitor 20 mg Tablet] 20 mg PO QHS 06/08/18 Cholecalciferol (Vitamin D3) [Vitamin D3 5000 unit Capsule] 5,000 unit PO DAILY 06/08/18 Diphenhydramine HCl [Benadryl] 50 mg PO HSP PRN 06/08/18 Levothyroxine Sodium [Synthroid 0.112 mg Tablet] 0.112 mg PO Q6AM 06/08/18 Losartan Potassium [Cozaar 100 mg Tablet] 100 mg PO DAILY 06/08/18 Magnesium Oxide [Mag-Ox 400 mg Tablet] 400 mg PO TID 06/08/18 Metformin HCl [Glucophage 500 mg Tablet] 1,000 mg PO BIDACBS 06/08/18 Potassium Chloride [Klor-Con 10 Meq Capsule ER] 20 meq PO TID 06/08/18 Sertraline HCl [Zoloft] 100 mg PO DAILY 06/08/18 Allergies/Adverse Reactions: Penicillins Allergy (Severe, Verified 09/13/17 19:13) Anaphylaxis Review of Systems ROS unobtainable: Other - Patient was nonverbal. Review of systems was obtained from the family members who were present. Gastrointestinal: PRESENT: bloating - Chronic, constipation. ABSENT: abdominal pain Physical Exam Vital Signs: Temp Pulse Resp BP Pulse Ox 98.6 F 71 18 109/60 98 06/11/18 15:16 06/11/18 19:00 06/11/18 15:16 06/11/18 15:16 06/11/18 15:16 Intake & Output 06/10/18 06/11/18 06/12/18 06:59 06:59 06:59 Intake Total 2255 1350 1077 Output Total 775 550 100 Balance 1480 800 977 Weight 28.3 kg 54.8 kg General appearance: PRESENT: no acute distress Head exam: PRESENT: atraumatic, normocephalic Eye exam: PRESENT: EOMI. ABSENT: scleral icterus Mouth exam: PRESENT: moist, neck supple Teeth exam: PRESENT: poor dentation Neck exam: ABSENT: meningismus, tenderness, thyromegaly, tracheal deviation Respiratory exam: PRESENT: unlabored. ABSENT: tachypnea, wheezes Pulses: PRESENT: normal radial pulses Vascular exam: PRESENT: normal capillary refill. ABSENT: pallor GI/Abdominal exam: PRESENT: distended, soft. ABSENT: guarding, rebound, rigid, tenderness Rectal exam: PRESENT: deferred Extremities exam: ABSENT: clubbing Neurological exam: PRESENT: awake, other - Patient was nonverbal for me.. ABSENT: alert, oriented to person, oriented to place, oriented to time, oriented to situation Psychiatric exam: ABSENT: agitated, anxious, depressed Skin exam: ABSENT: cyanosis, erythema, jaundice Results Laboratory Results: 06/09/18 14:59 06/11/18 12:34 06/11/18 12:34 Sodium 160.3 H Potassium 3.6 Chloride 134 H Carbon Dioxide 13 L Anion Gap 13 BUN 41 H Creatinine 0.92 Est GFR ( Amer) > 60 Est GFR (Non-Af Amer) 59 L Glucose 330 H Calcium 9.7 Total Bilirubin 0.4 AST 62 H ALT 43 Alkaline Phosphatase 74 Total Protein 6.0 L Albumin 3.3 L 06/07/18 22:19 Catheterized Urine Urine Culture - Final Aerococcus Urinae Impressions: Chest X-Ray 06/07/18 20:31 IMPRESSION: No acute disease. No change. Forearm X-Ray 06/07/18 20:31 IMPRESSION: No fracture. Humerus X-Ray 06/07/18 20:32 IMPRESSION: No fracture. Head CT 06/07/18 20:35 IMPRESSION: MICROVASCULAR ISCHEMIA AND GENERALIZED ATROPHY. NO ACUTE IMAGING FINDINGS IN THE BRAIN EVIDENCE OF ACUTE STROKE: NO. Assessment & Plan - Diagnosis (1) Megacolon, acquired, functional Is this a current diagnosis for this admission?: Yes - Plan Summary Plan Summary: This is a 77-year-old female with chronic megacolon. It is likely functional. It has been present since at least 2016 per our imaging studies. The patient does not have Henderson syndrome, as that is an acute process. Her abdominal films appear to be similar to previous studies. The only treatment available for this condition is total abdominal colectomy with ileostomy or possibly loop sigmoid colostomy (if minimalism is the goal). I have discussed this with the patient's family. They are unwilling to agree to any surgical intervention or placement of colostomy. Recommend continuation of laxatives. I will see the patient again on an as-needed basis. Please renotify with questions or conc erns.
[2018-06-11] MEDS: ATORVASTATIN CALCIUM 20 MG TABLET PO SCH (22:17)
[2018-06-12] MEDS: DEXTROSE 5%-WATER 1000 ML 1,000 ML IV PRN ×2 (03:12→17:51)
[2018-06-12 05:54] LABS: ANION GAP 5 (5-19); BLOOD UREA NITROGEN 46 mg/dL (7-20); CALCIUM 9.2 mg/dL (8.4-10.2); CARBON DIOXIDE 19 mmol/L (22-30); CHLORIDE 131 mmol/L (98-107); GLUCOSE 221 mg/dL (75-110); POTASSIUM 4.5 mmol/L (3.6-5.0); SODIUM 155.1 mmol/L (137-145)
[2018-06-12] MEDS: LEVOTHYROXINE SODIUM 0.112 MG TABLET PO SCH (06:09)
[2018-06-12] MEDS: POTASSIUM CHLORIDE 10 MEQ CAPSULE.ER PO SCH ×3 (06:10→22:01)
[2018-06-12] MEDS: LEVOFLOXACIN 250 MG/D5W RTU 250 MG/50 ML RTUPB IV SCH (09:19)
[2018-06-12] MEDS: METFORMIN HCL 500 MG TABLET PO SCH ×2 (09:20→17:49)
[2018-06-12] MEDS: AMLODIPINE BESYLATE 5 MG TABLET PO SCH (09:21)
[2018-06-12] MEDS: ASPIRIN 81 MG TABLET, ENT COATED PO SCH (09:21)
[2018-06-12] MEDS: SERTRALINE HCL 50 MG TABLET PO SCH (09:21)
[2018-06-12] MEDS: CHOLECALCIFEROL (D3) 1,000 UNIT TABLET PO SCH (09:21)
[2018-06-12] MEDS: ATENOLOL 50 MG TABLET PO SCH (09:21)
[2018-06-12] MEDS: LOSARTAN POTASSIUM 50 MG TABLET PO SCH (09:21)
[2018-06-12] MEDS: MAGNESIUM OXIDE 400 MG TABLET PO SCH ×3 (09:22→21:56)
[2018-06-12] MEDS: INSULIN LISPRO 100 UNIT/ML 3 ML VIAL SUBCUT PRN ×2 (12:11→16:45)
--- NOTE | 2018-06-12 12:24 | PDOC PROGRESS REPORT ---
Subjective Progress Note for:: 06/12/18 Subjective:: Patient is seen and examined at bedside. She is awake alert but nonverbal. Her lab shows her sodium is trending down from 160-155 and her creatinine is 0.92 so her kidney function is has improved much. Patient has been evaluated by Dr. Chen who suggested total colectomy with ileostomy or possibly loop sigmoid colostomy for patient's daughter and she declined to offer. Reportedly patient moved large bowel. Reason For Visit: TOXIC METABOLIC ENCEPHALOPATHY, ARF Physical Exam Vital Signs: Temp Pulse Resp BP Pulse Ox 98.4 F 71 16 113/52 L 100 06/12/18 11:19 06/12/18 11:19 06/12/18 11:19 06/12/18 11:19 06/12/18 11:19 Intake & Output 06/11/18 06/12/18 06/13/18 06:59 06:59 06:59 Intake Total 1350 2077 50 Output Total 550 1300 Balance 800 777 50 Weight 54.8 kg 55.2 kg General appearance: PRESENT: no acute distress Head exam: PRESENT: atraumatic Eye exam: PRESENT: conjunctiva pink Mouth exam: PRESENT: moist Neck exam: ABSENT: carotid bruit, JVD, lymphadenopathy, thyromegaly Respiratory exam: PRESENT: clear to auscultation skyler. ABSENT: rales, rhonchi, wheezes Cardiovascular exam: PRESENT: RRR. ABSENT: diastolic murmur, rubs, systolic murmur GI/Abdominal exam: PRESENT: distended - Grossly distended abdomen Results Laboratory Results: 06/09/18 14:59 06/12/18 05:18 06/11/18 06/12/18 12:34 05:18 Sodium 160.3 H 155.1 H Potassium 3.6 4.5 Chloride 134 H 131 H Carbon Dioxide 13 L 19 L Anion Gap 13 5 BUN 41 H 46 H Creatinine 0.92 0.92 Est GFR ( Amer) > 60 > 60 Est GFR (Non-Af Amer) 59 L 59 L Glucose 330 H 221 H Calcium 9.7 9.2 Total Bilirubin 0.4 AST 62 H ALT 43 Alkaline Phosphatase 74 Total Protein 6.0 L Albumin 3.3 L 06/07/18 22:19 Catheterized Urine Urine Culture - Final Aerococcus Urinae Impressions: Chest X-Ray 06/07/18 20:31 IMPRESSION: No acute disease. No change. Forearm X-Ray 06/07/18 20:31 IMPRESSION: No fracture. Humerus X-Ray 06/07/18 20:32 IMPRESSION: No fracture. Head CT 06/07/18 20:35 IMPRESSION: MICROVASCULAR ISCHEMIA AND GENERALIZED ATROPHY. NO ACUTE IMAGING FINDINGS IN THE BRAIN EVIDENCE OF ACUTE STROKE: NO. Assessment & Plan - Diagnosis (1) Hypernatremia Is this a current diagnosis for this admission?: Yes Plan: Improving (2) Toxic metabolic encephalopathy Is this a current diagnosis for this admission?: Yes Plan: Improving (3) Colonic pseudoobstruction Is this a current diagnosis for this admission?: Yes Plan: HEENT evaluated by Dr. Chen who recommended total colectomy with ileostomy or possibly loop sigmoid colostomy (4) Acute renal failure (ARF) Qualifiers: Acute renal failure type: unspecified Qualified Code(s): N17.9 - Acute kidney failure, unspecified Is this a current diagnosis for this admission?: Yes (5) Diabetes mellitus type 2 in nonobese Is this a current diagnosis for this admission?: Yes Plan: Continue sliding scale (6) Hypothyroidism Qualifiers: Hypothyroidism type: acquired Qualified Code(s): E03.9 - Hypothyroidism, unspecified Is this a current diagnosis for this admission?: Yes Plan: Continue Synthroid (7) HTN (hypertension) Qualifiers: Hypertension type: essential hypertension Qualified Code(s): I10 - Essential (primary) hypertension Is this a current diagnosis for this admission?: Yes Plan: Continue current regimen (8) Hyperlipidemia associated with type 2 diabetes mellitus Is this a current diagnosis for this admission?: Yes Plan: Continue current treatment
[2018-06-12] MEDS: ATORVASTATIN CALCIUM 20 MG TABLET PO SCH (22:01)
[2018-06-13] MEDS: POTASSIUM CHLORIDE 10 MEQ CAPSULE.ER PO SCH ×3 (05:10→22:35)
[2018-06-13] MEDS: LEVOTHYROXINE SODIUM 0.112 MG TABLET PO SCH (05:10)
[2018-06-13] MEDS: METFORMIN HCL 500 MG TABLET PO SCH ×2 (08:21→18:38)
[2018-06-13] MEDS: DEXTROSE 5%-WATER 1000 ML 1,000 ML IV PRN ×2 (08:21→22:47)
[2018-06-13] MEDS: INSULIN LISPRO 100 UNIT/ML 3 ML VIAL SUBCUT PRN ×2 (08:30→11:48)
[2018-06-13] MEDS: CHOLECALCIFEROL (D3) 1,000 UNIT TABLET PO SCH (10:55)
[2018-06-13] MEDS: SERTRALINE HCL 50 MG TABLET PO SCH (10:55)
[2018-06-13] MEDS: MAGNESIUM OXIDE 400 MG TABLET PO SCH ×3 (10:56→18:38)
[2018-06-13] MEDS: LOSARTAN POTASSIUM 50 MG TABLET PO SCH (10:56)
[2018-06-13] MEDS: ATENOLOL 50 MG TABLET PO SCH (10:56)
[2018-06-13] MEDS: AMLODIPINE BESYLATE 5 MG TABLET PO SCH (10:59)
[2018-06-13] MEDS: ASPIRIN 81 MG TABLET, ENT COATED PO SCH (11:00)
[2018-06-13] MEDS: LEVOFLOXACIN 250 MG/D5W RTU 250 MG/50 ML RTUPB IV SCH (11:01)
--- NOTE | 2018-06-13 11:16 | PDOC PROGRESS REPORT ---
Subjective Progress Note for:: 06/13/18 Subjective:: Patient is new to me. Her primary attending was Dr. Aviles until he was fired by patient's daughter yesterday. Patient brought by daughter with chief complaint of altered mental status and poor oral intake. Patient has multiple comorbidities including CVA twice, hypertension, diabetes mellitus, atrial fibrillation, coronary artery disease, hyperlipidemia, osteoarthritis, hypothyroidism and depression. When I see this patient patient is nonverbal but she is not in pain or any form of distress her abdomen is grossly distended and and tympanitic to percussion. X-ray of his abdomen was reported as colonic pseudoobstruction. Her BMP shows hyponatremia and acute kidney injury. Currently her kidney function is at its baseline and her sodium is trending evon n. For her chronic colonic pseudoobstruction consulted Dr. Chen who suggested total colectomy with ileostomy or possibly loop sigmoid colostomy to patient's daughter but she declined. Her daughter states that she no more able to take care of her so she asks for [facility] facility placement. Reason For Visit: TOXIC METABOLIC ENCEPHALOPATHY, ARF Physical Exam Vital Signs: Temp Pulse Resp BP Pulse Ox 97.6 F 75 12 115/45 L 100 06/13/18 07:28 06/13/18 07:28 06/13/18 07:28 06/13/18 07:28 06/13/18 07:28 Intake & Output 06/12/18 06/13/18 06/14/18 06:59 06:59 06:59 Intake Total 2077 1350 1000 Output Total 1300 600 Balance 305 831 8373 Weight 55.2 kg 55.2 kg General appearance: PRESENT: no acute distress Head exam: PRESENT: atraumatic Eye exam: PRESENT: conjunctiva pink Mouth exam: PRESENT: moist Neck exam: ABSENT: carotid bruit, JVD, lymphadenopathy, thyromegaly Respiratory exam: PRESENT: clear to auscultation skyler. ABSENT: rales, rhonchi, wheezes Cardiovascular exam: PRESENT: RRR. ABSENT: diastolic murmur, rubs, systolic murmur GI/Abdominal exam: PRESENT: distended - Grossly distended abdomen which is tympanic to palpation Neurological exam: PRESENT: alert, awake Results Laboratory Results: 06/09/18 14:59 06/12/18 05:18 06/08/18 10:04 Blood Blood Culture - Final NO GROWTH IN 5 DAYS 06/08/18 09:50 Blood Blood Culture - Final NO GROWTH IN 5 DAYS Impressions: Chest X-Ray 06/07/18 20:31 IMPRESSION: No acute disease. No change. Forearm X-Ray 06/07/18 20:31 IMPRESSION: No fracture. Humerus X-Ray 06/07/18 20:32 IMPRESSION: No fracture. Head CT 06/07/18 20:35 IMPRESSION: MICROVASCULAR ISCHEMIA AND GENERALIZED ATROPHY. NO ACUTE IMAGING FINDINGS IN THE BRAIN EVIDENCE OF ACUTE STROKE: NO. Assessment & Plan - Diagnosis (1) Hypernatremia Is this a current diagnosis for this admission?: Yes Plan: Improving (2) Toxic metabolic encephalopathy Is this a current diagnosis for this admission?: Yes Plan: Improving (3) Colonic pseudoobstruction Is this a current diagnosis for this admission?: Yes Plan: HEENT evaluated by Dr. Chen who recommended total colectomy with ileostomy or possibly loop sigmoid colostomy (4) Acute renal failure (ARF) Qualifiers: Acute renal failure type: unspecified Qualified Code(s): N17.9 - Acute kidney failure, unspecified Is this a current diagnosis for this admission?: Yes Plan: Is resolving (5) Diabetes mellitus type 2 in nonobese Is this a current diagnosis for this admission?: Yes Plan: Continue sliding scale (6) Hypothyroidism Qualifiers: Hypothyroidism type: acquired Qualified Code(s): E03.9 - Hypothyroidism, unspecified Is this a current diagnosis for this admission?: Yes Plan: Continue Synthroid (7) HTN (hypertension) Qualifiers: Hypertension type: essential hypertension Qualified Code(s): I10 - Essential (primary) hypertension Is this a current diagnosis for this admission?: Yes Plan: Continue current regimen (8) Hyperlipidemia associated with type 2 diabetes mellitus Is this a current diagnosis for this admission?: Yes Plan: Continue current treatment
[2018-06-13] MEDS: ATORVASTATIN CALCIUM 20 MG TABLET PO SCH (22:35)
[2018-06-14] MEDS: POTASSIUM CHLORIDE 10 MEQ CAPSULE.ER PO SCH (05:15)
[2018-06-14] MEDS: LEVOTHYROXINE SODIUM 0.112 MG TABLET PO SCH (05:16)
[2018-06-14 06:29] LABS: ANION GAP 6 (5-19); BLOOD UREA NITROGEN 28 mg/dL (7-20); CALCIUM 9.6 mg/dL (8.4-10.2); CARBON DIOXIDE 19 mmol/L (22-30); CHLORIDE 126 mmol/L (98-107); GLUCOSE 139 mg/dL (75-110); POTASSIUM 5.1 mmol/L (3.6-5.0); SODIUM 151.1 mmol/L (137-145)
[2018-06-14] MEDS: METFORMIN HCL 500 MG TABLET PO SCH ×2 (08:24→17:04)
[2018-06-14] MEDS: ASPIRIN 81 MG TABLET, ENT COATED PO SCH (11:11)
[2018-06-14] MEDS: ATENOLOL 50 MG TABLET PO SCH (11:11)
[2018-06-14] MEDS: MAGNESIUM OXIDE 400 MG TABLET PO SCH ×3 (11:12→17:05)
[2018-06-14] MEDS: SERTRALINE HCL 50 MG TABLET PO SCH (11:12)
[2018-06-14] MEDS: LOSARTAN POTASSIUM 50 MG TABLET PO SCH (11:12)
[2018-06-14] MEDS: CHOLECALCIFEROL (D3) 1,000 UNIT TABLET PO SCH (11:12)
[2018-06-14] MEDS: LEVOFLOXACIN 250 MG/D5W RTU 250 MG/50 ML RTUPB IV SCH (11:14)
[2018-06-14] MEDS: AMLODIPINE BESYLATE 5 MG TABLET PO SCH (11:17)
[2018-06-14] MEDS: INSULIN LISPRO 100 UNIT/ML 3 ML VIAL SUBCUT PRN (17:35)
--- NOTE | 2018-06-14 18:23 | PDOC PROGRESS REPORT ---
Subjective Progress Note for:: 06/14/18 Subjective:: No adverse events overnight. She has not had much of a change in her clinical condition. She is not speaking very much, and she eats very little. Reason For Visit: TOXIC METABOLIC ENCEPHALOPATHY, ARF Physical Exam Vital Signs: Temp Pulse Resp BP Pulse Ox 98.8 F 81 16 109/47 L 100 06/14/18 15:34 06/14/18 15:34 06/14/18 15:34 06/14/18 15:34 06/14/18 15:34 Intake & Output 06/13/18 06/14/18 06/15/18 06:59 06:59 06:59 Intake Total 1350 2414 60 Output Total 600 470 Balance 750 1944 60 Weight 55.2 kg 56.3 kg General appearance: PRESENT: no acute distress, disheveled, other - Nonverbal Respiratory exam: PRESENT: decreased breath sounds, symmetrical, unlabored. ABSENT: accessory muscle use, rales, rhonchi, tachypnea, wheezes Cardiovascular exam: PRESENT: RRR, +S1, +S2 GI/Abdominal exam: PRESENT: diminished bowel sounds, soft. ABSENT: distended, guarding, rebound, tenderness Extremities exam: PRESENT: +1 edema - Generally slightly edematous in all the extremities. ABSENT: clubbing Musculoskeletal exam: PRESENT: normal inspection. ABSENT: deformity Neurological exam: PRESENT: awake, other - She was nonverbal, I do not know if it is because she cannot speak or because she just did not want to Psychiatric exam: PRESENT: flat affect Skin exam: PRESENT: dry, pallor Results Laboratory Results: 06/09/18 14:59 06/14/18 05:30 06/14/18 05:30 Sodium 151.1 H Potassium 5.1 H Chloride 126 H Carbon Dioxide 19 L Anion Gap 6 BUN 28 H Creatinine 0.70 Est GFR ( Amer) > 60 Est GFR (Non-Af Amer) > 60 Glucose 139 H Calcium 9.6 Impressions: Chest X-Ray 06/07/18 20:31 IMPRESSION: No acute disease. No change. Forearm X-Ray 06/07/18 20:31 IMPRESSION: No fracture. Humerus X-Ray 06/07/18 20:32 IMPRESSION: No fracture. Head CT 06/07/18 20:35 IMPRESSION: MICROVASCULAR ISCHEMIA AND GENERALIZED ATROPHY. NO ACUTE IMAGING FINDINGS IN THE BRAIN EVIDENCE OF ACUTE STROKE: NO. Assessment & Plan - Diagnosis (1) Hypernatremia Is this a current diagnosis for this admission?: Yes Plan: Continuing with dilute fluids. We will repeat a BMP in the morning. (2) Megacolon, acquired, functional Is this a current diagnosis for this admission?: Yes Plan: Family does not want any surgery. We will continue to treat conservatively. (3) Pressure sore on sacrum Qualifiers: Pressure injury stage: stage 3 Qualified Code(s): L89.153 - Pressure ulcer of sacral region, stage 3 Is this a current diagnosis for this admission?: Yes Plan: We have been providing wound care and turning every couple of hours to offload the pressure. She is not eating or getting up on her own, so it is going to be very difficult for this wound to heal. - Time Time Spent with patient: 25-34 minutes
[2018-06-14] MEDS: DEXTROSE 5%-WATER 1000 ML 1,000 ML IV PRN (19:58)
[2018-06-14] MEDS: ATORVASTATIN CALCIUM 20 MG TABLET PO SCH (21:21)
[2018-06-15] MEDS: LEVOTHYROXINE SODIUM 0.112 MG TABLET PO SCH (05:14)
[2018-06-15] MEDS: METFORMIN HCL 500 MG TABLET PO SCH ×3 (08:41→15:44)
[2018-06-15] MEDS: ASPIRIN 81 MG TABLET, ENT COATED PO SCH ×2 (10:24→11:32)
[2018-06-15] MEDS: SERTRALINE HCL 50 MG TABLET PO SCH ×2 (10:24→11:32)
[2018-06-15] MEDS: AMLODIPINE BESYLATE 5 MG TABLET PO SCH ×2 (10:24→11:32)
[2018-06-15] MEDS: MAGNESIUM OXIDE 400 MG TABLET PO SCH ×4 (10:25→17:31)
[2018-06-15] MEDS: CHOLECALCIFEROL (D3) 1,000 UNIT TABLET PO SCH ×2 (10:25→11:32)
[2018-06-15] MEDS: LOSARTAN POTASSIUM 50 MG TABLET PO SCH ×2 (10:25→11:31)
[2018-06-15] MEDS: ATENOLOL 50 MG TABLET PO SCH ×2 (10:25→11:32)
[2018-06-15] MEDS: DEXTROSE 5%-WATER 1000 ML 1,000 ML IV PRN (12:26)
[2018-06-15 13:33] LABS: ANION GAP 5 (5-19); BLOOD UREA NITROGEN 25 mg/dL (7-20); CALCIUM 9.3 mg/dL (8.4-10.2); CARBON DIOXIDE 20 mmol/L (22-30); CHLORIDE 119 mmol/L (98-107); GLUCOSE 145 mg/dL (75-110); POTASSIUM 5.3 mmol/L (3.6-5.0); SODIUM 144.2 mmol/L (137-145)
--- NOTE | 2018-06-15 18:22 | PDOC PROGRESS REPORT ---
Subjective Progress Note for:: 06/15/18 Subjective:: No adverse events overnight. No new complaints. She has had little if any change in her clinical condition. Vital signs have remained stable. She is eating very little if anything at all. At her daughter's request, we had physical therapy go back in and see her, and their assessment has not changed. She is either unwilling or unable to participate with physical therapy. Reason For Visit: TOXIC METABOLIC ENCEPHALOPATHY, ARF Physical Exam Vital Signs: Temp Pulse Resp BP Pulse Ox 98.2 F 77 16 110/56 L 100 06/15/18 15:51 06/15/18 15:51 06/15/18 15:51 06/15/18 15:51 06/15/18 15:51 Intake & Output 06/14/18 06/15/18 06/16/18 06:59 06:59 06:59 Intake Total 2414 1120 1065 Output Total 470 525 Balance 9173 082 8229 Weight 56.3 kg 57.2 kg General appearance: PRESENT: no acute distress, disheveled, other - Nonverbal Respiratory exam: PRESENT: decreased breath sounds, symmetrical, unlabored. ABSENT: accessory muscle use, rales, rhonchi, tachypnea, wheezes Cardiovascular exam: PRESENT: RRR, +S1, +S2 GI/Abdominal exam: PRESENT: diminished bowel sounds, distended, soft. ABSENT: guarding, rebound, tenderness Extremities exam: PRESENT: +1 edema - Generally slightly edematous in all the extremities. ABSENT: clubbing Musculoskeletal exam: PRESENT: normal inspection. ABSENT: deformity Neurological exam: PRESENT: awake, other - She was nonverbal, I do not know if it is because she cannot speak or because she just did not want to Psychiatric exam: PRESENT: flat affect Skin exam: PRESENT: dry, pallor Results Laboratory Results: 06/09/18 14:59 06/15/18 12:30 06/15/18 12:30 Sodium 144.2 Potassium 5.3 H Chloride 119 H Carbon Dioxide 20 L Anion Gap 5 BUN 25 H Creatinine 0.51 L Est GFR ( Amer) > 60 Est GFR (Non-Af Amer) > 60 Glucose 145 H Calcium 9.3 Impressions: Chest X-Ray 06/07/18 20:31 IMPRESSION: No acute disease. No change. Forearm X-Ray 06/07/18 20:31 IMPRESSION: No fracture. Humerus X-Ray 06/07/18 20:32 IMPRESSION: No fracture. Head CT 06/07/18 20:35 IMPRESSION: MICROVASCULAR ISCHEMIA AND GENERALIZED ATROPHY. NO ACUTE IMAGING FINDINGS IN THE BRAIN EVIDENCE OF ACUTE STROKE: NO. Assessment & Plan - Diagnosis (1) Hypernatremia Is this a current diagnosis for this admission?: Yes Plan: Resolved. I meant to keep the dilute fluids going for another day to try to reduce her chloride levels. (2) Megacolon, acquired, functional Is this a current diagnosis for this admission?: Yes Plan: Family does not want any surgery. We will continue to treat conservatively. (3) Pressure sore on sacrum Qualifiers: Pressure injury stage: stage 3 Qualified Code(s): L89.153 - Pressure ulcer of sacral region, stage 3 Is this a current diagnosis for this admission?: Yes Plan: We have been providing wound care and turning every couple of hours to offload the pressure. She is not eating or getting up on her own, so it is going to be very difficult for this wound to heal. - Time Time Spent with patient: 15-24 minutes
[2018-06-15] MEDS: ATORVASTATIN CALCIUM 20 MG TABLET PO SCH (21:42)
[2018-06-16] MEDS: LEVOTHYROXINE SODIUM 0.112 MG TABLET PO SCH (05:12)
[2018-06-16] MEDS: DEXTROSE 5%-WATER 1000 ML 1,000 ML IV PRN ×2 (05:15→22:14)
[2018-06-16] MEDS: METFORMIN HCL 500 MG TABLET PO SCH ×2 (08:28→17:19)
[2018-06-16 10:02] LABS: ANION GAP 7 (5-19); BLOOD UREA NITROGEN 21 mg/dL (7-20); CALCIUM 9.3 mg/dL (8.4-10.2); CARBON DIOXIDE 20 mmol/L (22-30); CHLORIDE 114 mmol/L (98-107); GLUCOSE 143 mg/dL (75-110); SODIUM 140.6 mmol/L (137-145)
[2018-06-16] MEDS: LOSARTAN POTASSIUM 50 MG TABLET PO SCH (10:42)
[2018-06-16] MEDS: SERTRALINE HCL 50 MG TABLET PO SCH (10:42)
[2018-06-16] MEDS: ATENOLOL 50 MG TABLET PO SCH (10:43)
[2018-06-16] MEDS: AMLODIPINE BESYLATE 5 MG TABLET PO SCH (10:43)
[2018-06-16] MEDS: CHOLECALCIFEROL (D3) 1,000 UNIT TABLET PO SCH (10:43)
[2018-06-16] MEDS: ASPIRIN 81 MG TABLET, ENT COATED PO SCH (10:43)
[2018-06-16] MEDS: MAGNESIUM OXIDE 400 MG TABLET PO SCH ×3 (10:44→17:20)
--- NOTE | 2018-06-16 16:54 | PDOC DISCHARGE SUMMARY ---
General - Admit/Disc Date/PCP Admission Date/Primary Care Provider: 06/07/18 23:36 Discharge Date: 06/16/18 - Discharge Diagnosis (1) Hypernatremia Is this a current diagnosis for this admission?: Yes Summary: From dehydration. This resolved with administration of dilute IV fluids. This is been an issue with her before, as long as her oral intake remains low it will continue to recur. (2) Megacolon, acquired, functional Is this a current diagnosis for this admission?: Yes Summary: Family did not want surgery, and this patient would not be a good surgical candidate anyway. Conservative treatment. (3) Pressure sore on sacrum Is this a current diagnosis for this admission?: Yes Summary: She had this on her last admission and this was present on admission this time. Was described as a stage II last time, and appears to have progressed to a stage III. Oral intake is low so getting enough protein in her is going to be a challenge. Continue local wound care with measures to encourage offloading. - Additional Information Resuscitation Status: Full Code - I had extensive discussion with patient's daughter at bedside, presently patient is full code and family will decide further intervention if there is need for resuscitation Discharge Diet: As Tolerated Discharge Activity: Supervised Activity, No tub bath Home Medications: Amlodipine Besylate [Norvasc 5 mg Tablet] 5 mg PO DAILY 06/08/18 Aspirin [Ecotrin 81 mg EC Tablet] 81 mg PO DAILY 06/08/18 Atenolol [Tenormin 100 mg Tablet] 100 mg PO DAILY 06/08/18 Atorvastatin Calcium [Lipitor 20 mg Tablet] 20 mg PO QHS 06/08/18 Cholecalciferol (Vitamin D3) [Vitamin D3 5000 unit Capsule] 5,000 unit PO DAILY 06/08/18 Levothyroxine Sodium [Synthroid 0.112 mg Tablet] 0.112 mg PO Q6AM 06/08/18 Losartan Potassium [Cozaar 100 mg Tablet] 100 mg PO DAILY 06/08/18 Magnesium Oxide [Mag-Ox 400 mg Tablet] 400 mg PO TID 06/08/18 Metformin HCl [Glucophage 500 mg Tablet] 1,000 mg PO BIDACBS 06/08/18 Sertraline HCl [Zoloft] 100 mg PO DAILY 06/08/18 History of Present Illness History of Present Illness: TRA DESAI is a 77 year old female patient known to my practice who was brought to the ED by EMS with daughter reporting change in mental status. Patient is presently minimally verbal. Daughter reported that over the last week patient's oral intake have been poor and she demonstrated paranoid behaviour thinking that daughter was trying to kill her. She insisted on calling telephone ad taker few days ago and her evaluation on site was unrevealing. Daughter claimed that patient subsequently became less interactive and demonstrated left sided weakness. Daughter denied any fever or chills. No difficulty with breathing. No vomiting or more than usual chunky liquid diarrhea bowel movement. No reported seizure or loss of consciousness. Her initial evaluation in the ED was remarkable for elevated BUN and creatinine that suggested ARF. She was advised admission for further evaluation and management. Her morbidities include Diabetes Mellitus Type 2, Chronic Atrial Fibrillation, Coronary Artery Disease, Hypertension, Hyperlipidemia, Cerebrovascular Accident - stroke x 2, Osteoarthritis, and Depression. Hospital Course Hospital Course: She was treated initially for a urinary tract infection and has completed a course of treatment. Because she was also dehydrated with an acute kidney injury, she received IV fluids and her creatinine returned to normal. She was also hyponatremic which also responded to dilute IV fluids. Her oral intake has not really improved very much. She has a chronic megacolon and because of the high likelihood of her not doing well with surgery, family elected for conservative treatment only. At some point for an as yet undetermined reason, the patient's daughter wanted her care transferred to the hospitalist service. It should be noted that the plan of care did not change from that of the admitting physician who had been managing her during her hospitalization up into the point the hospitalist took over. This patient was seen and evaluated twice by physical therapy because the daughter wanted her to get into a [facility] facility for rehab, and this patient is either unable or unwilling to participate, perhaps a bit of both. For these reasons she was not deemed a rehab candidate and therefore we cannot get her placed in a facility. We have been trying to get her qualified for Medicaid so that she can get placed for long-term care and that is pending. The patient was considered stable for discharge today since there were no longer any acute issues to manage. We will plan to set her up with home [facility] and his many services we can arrange for her until such time as she can get placed in a long-term care facility. Though she is stable for discharge, at time of this dictation the daughter has decided to appeal the discharge and that appeal is pending. Physical Exam Vital Signs: Temp Pulse Resp BP Pulse Ox 97.4 F 71 17 115/57 L 100 06/16/18 16:19 06/16/18 16:19 06/16/18 16:19 06/16/18 16:19 06/16/18 16:19 Intake & Output 06/15/18 06/16/18 06/17/18 06:59 06:59 06:59 Intake Total 1120 2245 Output Total 525 300 Balance 595 1945 Weight 57.2 kg 57.2 kg General appearance: PRESENT: no acute distress, disheveled, other - Nonverbal Respiratory exam: PRESENT: decreased breath sounds, symmetrical, unlabored. ABSENT: accessory muscle use, rales, rhonchi, tachypnea, wheezes Cardiovascular exam: PRESENT: RRR, +S1, +S2 GI/Abdominal exam: PRESENT: diminished bowel sounds, distended, soft. ABSENT: guarding, rebound, tenderness Extremities exam: PRESENT: +1 edema - Generally slightly edematous in all the extremities. ABSENT: clubbing Musculoskeletal exam: PRESENT: normal inspection. ABSENT: deformity Neurological exam: PRESENT: awake, other - She was nonverbal, I do not know if it is because she cannot speak or because she just did not want to, but she has been this way for me for the past few days Psychiatric exam: PRESENT: flat affect Skin exam: PRESENT: dry, pallor Results Laboratory Results: 06/09/18 14:59 06/16/18 09:12 06/16/18 09:12 Sodium 140.6 Potassium 5.0 Chloride 114 H Carbon Dioxide 20 L Anion Gap 7 BUN 21 H Creatinine 0.50 L Est GFR ( Amer) > 60 Est GFR (Non-Af Amer) > 60 Glucose 143 H Calcium 9.3 Impressions: Chest X-Ray 06/07/18 20:31 IMPRESSION: No acute disease. No change. Forearm X-Ray 06/07/18 20:31 IMPRESSION: No fracture. Humerus X-Ray 06/07/18 20:32 IMPRESSION: No fracture. Head CT 06/07/18 20:35 IMPRESSION: MICROVASCULAR ISCHEMIA AND GENERALIZED ATROPHY. NO ACUTE IMAGING FINDINGS IN THE BRAIN EVIDENCE OF ACUTE STROKE: NO. Qualifiers - * PATIENT BEING DISCHARGED WITH ANY OF THE FOLLOWING DIAGNOSIS: No
[2018-06-16] MEDS: ATORVASTATIN CALCIUM 20 MG TABLET PO SCH (22:14)
[2018-06-17] MEDS: LEVOTHYROXINE SODIUM 0.112 MG TABLET PO SCH (05:39)
[2018-06-17 06:33] LABS: ANION GAP 6 (5-19); BLOOD UREA NITROGEN 22 mg/dL (7-20); CALCIUM 9.5 mg/dL (8.4-10.2); CARBON DIOXIDE 22 mmol/L (22-30); CHLORIDE 110 mmol/L (98-107); GLUCOSE 140 mg/dL (75-110); PHOSPHORUS 1.7 mg/dL (2.5-4.5); POTASSIUM 4.6 mmol/L (3.6-5.0)
[2018-06-17 08:49] LABS: ABSOLUTE BASOPHILS # (AUTO) 0.1 10^3/uL (0.0-0.2); ABSOLUTE EOSINOPHILS # (AUTO) 0.1 10^3/uL (0.0-0.6); ABSOLUTE LYMPHOCYTES (AUTO) 1.6 10^3/uL (0.5-4.7); ABSOLUTE MONOCYTES (AUTO) 0.8 10^3/uL (0.1-1.4); ABSOLUTE NEUT (AUTO) 7.8 10^3/uL (1.7-8.2); BASOPHILS % (AUTO) 0.6 % (0-2); EOSINOPHILS % (AUTO) 1.3 % (0-6); HEMATOCRIT 34.1 % (36.0-47.0); HEMOGLOBIN 11.6 g/dL (12.0-15.5); LYMPHOCYTES % (AUTO) 15.3 % (13-45); MEAN CORPUSCULAR HEMOGLOBIN 29.6 pg (27.0-33.4); MEAN CORPUSCULAR VOLUME 87 fl (80-97); MONOCYTES % (AUTO) 7.8 % (3-13); PLATELET COUNT 202 10^3/uL (150-450); RED BLOOD COUNT 3.92 10^6/uL (3.72-5.28); RED CELL DISTRIBUTION WIDTH 14.9 % (11.5-14.0); TOTAL CELLS COUNTED % (AUTO) 100 %; WHITE BLOOD COUNT 10.4 10^3/uL (4.0-10.5)
[2018-06-17] MEDS: ASPIRIN 81 MG TABLET, ENT COATED PO SCH (08:58)
[2018-06-17] MEDS: LOSARTAN POTASSIUM 50 MG TABLET PO SCH (08:58)
[2018-06-17] MEDS: ATENOLOL 50 MG TABLET PO SCH (08:58)
[2018-06-17] MEDS: CHOLECALCIFEROL (D3) 1,000 UNIT TABLET PO SCH (08:58)
[2018-06-17] MEDS: AMLODIPINE BESYLATE 5 MG TABLET PO SCH (08:59)
[2018-06-17] MEDS: METFORMIN HCL 500 MG TABLET PO SCH ×2 (08:59→16:21)
[2018-06-17] MEDS: MAGNESIUM OXIDE 400 MG TABLET PO SCH ×3 (08:59→18:07)
[2018-06-17] MEDS: SERTRALINE HCL 50 MG TABLET PO SCH (08:59)
[2018-06-17] MEDS: DEXTROSE 5%-WATER 1000 ML 1,000 ML IV PRN (14:07)
--- NOTE | 2018-06-17 17:24 | Progress Note ---
Provider Note Provider Note: The patient's daughter appealed her discharge yesterday and we are awaiting the final decision on the appeal. Patient's clinical condition has not changed. There is been no change in her plan of care. She still eating very little. She is still requiring total care for all of her ADLs. We continue to provide local wound care for her pressure sore on her sacrum which does not appear infected by report, and we continue to offload the area by turning her every 2 hours.
[2018-06-17] MEDS: ATORVASTATIN CALCIUM 20 MG TABLET PO SCH (22:33)
[2018-06-18] MEDS: LEVOTHYROXINE SODIUM 0.112 MG TABLET PO SCH (05:58)
[2018-06-18] MEDS: LOSARTAN POTASSIUM 50 MG TABLET PO SCH (10:18)
[2018-06-18] MEDS: CHOLECALCIFEROL (D3) 1,000 UNIT TABLET PO SCH (10:18)
[2018-06-18] MEDS: MAGNESIUM OXIDE 400 MG TABLET PO SCH ×3 (10:19→18:10)
[2018-06-18] MEDS: SERTRALINE HCL 50 MG TABLET PO SCH (10:19)
[2018-06-18] MEDS: AMLODIPINE BESYLATE 5 MG TABLET PO SCH (10:19)
[2018-06-18] MEDS: ATENOLOL 50 MG TABLET PO SCH (10:19)
[2018-06-18] MEDS: ASPIRIN 81 MG TABLET, ENT COATED PO SCH (10:19)
[2018-06-18] MEDS: METFORMIN HCL 500 MG TABLET PO SCH ×2 (10:19→15:24)
[2018-06-18] MEDS ORDERED: SODIUM PHOS,M-BASIC-D-BASIC 60 MMOL in NORMAL SALINE 500 ML IV ONE (16:28)
--- NOTE | 2018-06-18 17:10 | PDOC PROGRESS REPORT ---
Subjective Progress Note for:: 06/18/18 Subjective:: Patient has had no substantial change in her clinical condition. She continues to be nonverbal. Her daughter does all the talking. She apparently ate better yesterday than she has today. Reason For Visit: TOXIC METABOLIC ENCEPHALOPATHY, ARF Physical Exam Vital Signs: Temp Pulse Resp BP Pulse Ox 98.1 F 80 18 122/65 100 06/18/18 12:00 06/18/18 12:00 06/18/18 12:00 06/18/18 12:00 06/18/18 12:00 Intake & Output 06/17/18 06/18/18 06/19/18 06:59 06:59 06:59 Intake Total 1449 2644 Output Total 1025 1900 Balance 424 744 Weight 57.2 kg 56.3 kg General appearance: PRESENT: no acute distress, disheveled, other - Nonverbal, daughter does all the talking Respiratory exam: PRESENT: unlabored. ABSENT: accessory muscle use, tachypnea GI/Abdominal exam: PRESENT: distended - Medically distended Extremities exam: ABSENT: clubbing, joint swelling Neurological exam: PRESENT: awake, other - Either do she does not talk or she is unable to Psychiatric exam: PRESENT: flat affect Skin exam: PRESENT: pallor Results Laboratory Results: 06/17/18 08:09 06/17/18 05:11 Impressions: Chest X-Ray 06/07/18 20:31 IMPRESSION: No acute disease. No change. Forearm X-Ray 06/07/18 20:31 IMPRESSION: No fracture. Humerus X-Ray 06/07/18 20:32 IMPRESSION: No fracture. Head CT 06/07/18 20:35 IMPRESSION: MICROVASCULAR ISCHEMIA AND GENERALIZED ATROPHY. NO ACUTE IMAGING FINDINGS IN THE BRAIN EVIDENCE OF ACUTE STROKE: NO. Assessment & Plan - Diagnosis (1) Hypernatremia Is this a current diagnosis for this admission?: Yes Plan: Resolved. (2) Megacolon, acquired, functional Is this a current diagnosis for this admission?: Yes Plan: Family does not want any surgery. We will continue to treat conservatively. (3) Pressure sore on sacrum Qualifiers: Pressure injury stage: stage 3 Qualified Code(s): L89.153 - Pressure ulcer of sacral region, stage 3 Is this a current diagnosis for this admission?: Yes Plan: We have been providing wound care and turning every couple of hours to offload the pressure. She is not eating or getting up on her own, so it is going to be very difficult for this wound to heal. (4) Hypophosphatemia Is this a current diagnosis for this admission?: Yes Plan: Replacing this with an IV supplement. Her oral intake is poor (5) Hypomagnesemia Is this a current diagnosis for this admission?: Yes Plan: She is on an oral supplement - Time Time Spent with patient: 15-24 minutes
[2018-06-18] MEDS: ATORVASTATIN CALCIUM 20 MG TABLET PO SCH (23:31)
[2018-06-19] MEDS: LEVOTHYROXINE SODIUM 0.112 MG TABLET PO SCH (06:14)
[2018-06-19] MEDS: METFORMIN HCL 500 MG TABLET PO SCH ×2 (08:44→17:47)
[2018-06-19 10:16] LABS: ANION GAP 8 (5-19); BLOOD UREA NITROGEN 16 mg/dL (7-20); CALCIUM 8.3 mg/dL (8.4-10.2); CARBON DIOXIDE 22 mmol/L (22-30); CHLORIDE 109 mmol/L (98-107); GLUCOSE 142 mg/dL (75-110); PHOSPHORUS 6.7 mg/dL (2.5-4.5); POTASSIUM 3.7 mmol/L (3.6-5.0); SODIUM 138.7 mmol/L (137-145)
[2018-06-19] MEDS ORDERED: MAGNESIUM SULFATE INJ 8 MEQ/2 ML IV ONE (11:19)
[2018-06-19] MEDS: CHOLECALCIFEROL (D3) 1,000 UNIT TABLET PO SCH ×2 (11:37→12:04)
[2018-06-19] MEDS: AMLODIPINE BESYLATE 5 MG TABLET PO SCH ×2 (11:37→12:04)
[2018-06-19] MEDS: ATENOLOL 50 MG TABLET PO SCH ×2 (11:38→12:04)
[2018-06-19] MEDS: SERTRALINE HCL 50 MG TABLET PO SCH ×2 (11:39→12:05)
[2018-06-19] MEDS: LOSARTAN POTASSIUM 50 MG TABLET PO SCH ×2 (11:39→12:04)
[2018-06-19] MEDS: ASPIRIN 81 MG TABLET, ENT COATED PO SCH ×2 (11:39→12:04)
[2018-06-19] MEDS: MAGNESIUM OXIDE 400 MG TABLET PO SCH ×4 (11:40→17:47)
[2018-06-19] MEDS: MAGNESIUM SULFATE 1 GM/D5W 100 ML IV SCH ×2 (13:34→16:44)
[2018-06-19] MEDS ORDERED: MAGNESIUM SULFATE 1 GM/D5W 100 ML IV ONE (16:30)
--- NOTE | 2018-06-19 18:05 | PDOC PROGRESS REPORT ---
Subjective Progress Note for:: 06/19/18 Subjective:: No adverse events overnight. Her daughter was not in the room today whenever I saw her. It was the first time the patient is actually spoken to me. She mostly answers my questions with yes and no responses. She did make eye contact. She said she is not eaten very much today. She denied any complaints of pain. Reason For Visit: TOXIC METABOLIC ENCEPHALOPATHY, ARF Physical Exam Vital Signs: Temp Pulse Resp BP Pulse Ox 98.1 F 71 15 125/54 L 97 06/19/18 15:31 06/19/18 15:31 06/19/18 15:31 06/19/18 15:31 06/19/18 15:31 Intake & Output 06/18/18 06/19/18 06/20/18 06:59 06:59 06:59 Intake Total 2644 1270 100 Output Total 1900 1250 Balance 744 20 100 Weight 56.3 kg 57.9 kg General appearance: PRESENT: no acute distress, disheveled Respiratory exam: PRESENT: decreased breath sounds, symmetrical, unlabored. ABSENT: accessory muscle use, rales, rhonchi, tachypnea, wheezes Cardiovascular exam: PRESENT: RRR, +S1, +S2 GI/Abdominal exam: PRESENT: diminished bowel sounds, distended, soft. ABSENT: guarding, rebound, tenderness Extremities exam: PRESENT: +1 edema - Generally slightly edematous in all the extremities. ABSENT: clubbing Musculoskeletal exam: PRESENT: normal inspection. ABSENT: deformity Neurological exam: PRESENT: awake, responds to verbal command, answering yes and no questions appropriately Psychiatric exam: PRESENT: flat affect Skin exam: PRESENT: dry, pallor Results Laboratory Results: 06/17/18 08:09 06/19/18 09:14 06/19/18 09:14 Sodium 138.7 Potassium 3.7 Chloride 109 H Carbon Dioxide 22 Anion Gap 8 BUN 16 Creatinine 0.45 L Est GFR ( Amer) > 60 Est GFR (Non-Af Amer) > 60 Glucose 142 H Calcium 8.3 L Phosphorus 6.7 H Magnesium 1.3 L Impressions: Chest X-Ray 06/07/18 20:31 IMPRESSION: No acute disease. No change. Forearm X-Ray 06/07/18 20:31 IMPRESSION: No fracture. Humerus X-Ray 06/07/18 20:32 IMPRESSION: No fracture. Head CT 06/07/18 20:35 IMPRESSION: MICROVASCULAR ISCHEMIA AND GENERALIZED ATROPHY. NO ACUTE IMAGING FINDINGS IN THE BRAIN EVIDENCE OF ACUTE STROKE: NO. Assessment & Plan - Diagnosis (1) Hypernatremia Is this a current diagnosis for this admission?: Yes Plan: Resolved. (2) Megacolon, acquired, functional Is this a current diagnosis for this admission?: Yes Plan: Family does not want any surgery. We will continue to treat conservatively. (3) Pressure sore on sacrum Qualifiers: Pressure injury stage: stage 3 Qualified Code(s): L89.153 - Pressure ulcer of sacral region, stage 3 Is this a current diagnosis for this admission?: Yes Plan: We have been providing wound care and turning every couple of hours to offload the pressure. She is not eating or getting up on her own, so it is going to be very difficult for this wound to heal. (4) Hypomagnesemia Is this a current diagnosis for this admission?: Yes Plan: She is on an oral supplement, but her are still low, so I am going to give her a dose of IV magnesium today. (5) Hyperphosphatemia Is this a current diagnosis for this admission?: Yes Plan: We're going to monitor her for now, as the levels should resolve on their own within a day because she has normal kidney function. If not, I may give her a little bit of IV fluids to help facilitate elimination of the excess phosphorus. - Time Time Spent with patient: 15-24 minutes
[2018-06-20] MEDS: ATORVASTATIN CALCIUM 20 MG TABLET PO SCH (00:14)
[2018-06-20] MEDS: LEVOTHYROXINE SODIUM 0.112 MG TABLET PO SCH (10:34)
[2018-06-20] MEDS: CHOLECALCIFEROL (D3) 1,000 UNIT TABLET PO SCH (10:38)
[2018-06-20] MEDS: AMLODIPINE BESYLATE 5 MG TABLET PO SCH (10:39)
[2018-06-20] MEDS: ATENOLOL 50 MG TABLET PO SCH (10:39)
[2018-06-20] MEDS: ASPIRIN 81 MG TABLET, ENT COATED PO SCH (10:39)
[2018-06-20] MEDS: LOSARTAN POTASSIUM 50 MG TABLET PO SCH (10:41)
[2018-06-20] MEDS: METFORMIN HCL 500 MG TABLET PO SCH ×2 (10:41→15:31)
[2018-06-20] MEDS: SERTRALINE HCL 50 MG TABLET PO SCH (10:42)
[2018-06-20] MEDS: MAGNESIUM OXIDE 400 MG TABLET PO SCH ×2 (10:42→15:31)
[2018-06-20 12:48] VITALS: BP 131/58
--- NOTE | 2018-06-20 16:54 | Progress Note ---
Provider Note Provider Note: The patient was seen with her daughter, Maureen, and discharge planning, Monie Gabriel present. She was found resting in bed comfortably on room air. She is noted to be awake, alert and orientated to self, daughter, and place. She answered a few yes or no questions appropriately and did attempt to roll to the side when asked if I could examine her wound. Overnight events, previous progress and consultation notes, imaging and laboratory results were reviewed. Discussed the patient's case with nursing; no concerns or barriers to discharge from their perspective. A brief bedside exam was conducted. Gen: Elderly, frail, chronically ill-appearing female. Neuor: A&O to self. She does attempt to follow directions. She is noted to be hard of hearing. Lung: CTA throughout. CVA: RRR, no rubs gallops, murmurs. ABD: Distended, firm, nontender. Active bowel sounds. Skin: Stage III sacral decubitus ulcer with a 2 cm x 1 cm area of central sloughing. No drainage. The patient's daughter had numerous questions regarding the patient's progress, surgical recommendations, laboratory results, and plan of care. Of note, the patient's discharge (06/16/2018) appeal was denied yesterday. We discussed the chronic nature of her stage III sacral decubitus wound with recommendations for continuing daily dry dressings and outpatient management with either her primary care provider, or if she preferred, with the [place] [facility]. A referral to the [place] [facility] was offered; the patient's daughter did not express interest in this. However, she seems significantly overwhelmed and so therefore a referral will be placed so that it is available should she choose to follow-up with them in the future. We discussed the pros and cons of palliative care/hospice referral versus physical therapy. The patient daughter expressed, on numerous occasions, interest in physical therapy only. She did not seem to understand that she cannot continue active physical therapy while on hospice services; furthermore, she did not seem to understand the full scope of palliative care/hospice services. Again, a palliative care referral for outpatient follow-up was offered; it was unclear whether or not the patient's daughter was interested, however, I believe that they would both benefit from as many services as possible. Therefore, a palliative care consultation for goals of care discussion will be placed. Hopefully the palate of care team can help the patient and her family come to terms with the chronic nature of her health conditions and he needs there transition towards a new direction of care. Discussed the importance of weight offloading, nutrition, hygiene, and follow-up with primary care provider. Discharge planning informs the patient's daughter that home health nursing, physical therapy, occupational therapy, aide have been arranged. Orders for wheelchair and hospital bed have been obtained; limited resources today due to most business is being closed for the holiday, assistance provided for follow-up in obtaining these items tomorrow. The patient navigator, patient advocate, community diabetes specialist, and nursing bookkeepers supervisor have all been involved in the patient's case in establishing a safe discharge plan. At this time, the patient is stable for discharge to home into the care of family members with home health nursing services. She is instructed to follow-up with her primary care provider within 1 week. Long-term Medicaid is pending; daughter is advised that once this is approved, the patient would qualify for long-term SNF services. Will place an outpatient palliative care referral. May follow-up with the [facility] on an outpatient basis, as needed, for wound care and recommendations.
--- NOTE | 2018-06-20 17:27 | Progress Note ---
Provider Note Provider Note: The patient's daughter's discharge appeal was denied. Patient is going home today. The plan of care has not changed since the previously dictated discharge summary.
== END 2018-06-20 21:11 | disposition home health service (06) | DRG 640 ==
LOC: ER 19:56 → EH 23:36 → 5 06-08 01:00
PROVIDERS: ADMIT Hospitalist; ATTEND Hospitalist
DX: E87.0 Hyperosmolality and hypernatremia (principal); L89.153 Pressure ulcer of sacral region, stage 3; G92 Toxic encephalopathy; K59.39 Other megacolon; N39.0 Urinary tract infection, site not specified; N17.9 Acute kidney failure, unspecified; E86.0 Dehydration; Z51.5 Encounter for palliative care; E83.42 Hypomagnesemia; E83.39 Other disorders of phosphorus metabolism; E11.9 Type 2 diabetes mellitus without complications; I48.2 Chronic atrial fibrillation; I25.10 Atherosclerotic heart disease of native coronary artery without angina pectoris; I10 Essential (primary) hypertension; E78.5 Hyperlipidemia, unspecified; M19.90 Unspecified osteoarthritis, unspecified site; E03.9 Hypothyroidism, unspecified; F32.9 Major depressive disorder, single episode, unspecified; Z86.73 Personal history of transient ischemic attack (TIA), and cerebral infarction without residual deficits; Z79.82 Long term (current) use of aspirin; Z79.899 Other long term (current) drug therapy; Z90.49 Acquired absence of other specified parts of digestive tract; Z90.710 Acquired absence of both cervix and uterus; Z88.0 Allergy status to penicillin
CPT/HCPCS: 36415; 51702; 70450; 71045; 80048; 80053; 80069; 81001; 82272; 82803; 82962; 83605; 83735; 84100; 85025; 87040; 87086; 87088; 96360; 99291; G8978-GP; G8979-GP; G8980-GP; J1815; J1956; J3475; J3490; J7030; J7040; J7060